=== PATIENT | female | born 1970 | race Caucasian/White ===

== ENCOUNTER 2016-06-29 11:31 | Emergency (ER) | payer BC ==
[2016-06-29 11:53] VITALS: BP 153/89
--- NOTE | 2016-06-29 12:05 | UC ---
Respiratory Complaint HPI - HPI Summary HPI Summary: complaint of getting a URI approx 1 month ago and has been lingering for approx 1 week she has been having difficulty with difficulty breathing out coughing uncontrolled coughing at night non productive cough slight nasal congestion feels chills for the last several days using albuterol 2x day for the last week seen by care aid and they started her on doxycycline 1 week ago- negative chest x-ray at that time seen by PCP 2 days ago started singular and told to finish antibiotics - History of Current Complaint Chief Complaint: UCAsthma Stated Complaint: ASTHMA Time Seen by Provider: 06/29/16 11:59 Hx Obtained From: Patient Hx Last Menstrual Period: 10/22/15 - Allergies/Home Medications Allergies/Adverse Reactions: Allergies Allergy/AdvReac Type Severity Reaction Status Date / Time Captopril Allergy Difficulty Verified 04/17/16 10:05 Breathing/Wheezing Codeine Allergy Swelling Verified 04/17/16 10:05 Enalapril Allergy Difficulty Verified 04/17/16 10:05 Breathing/Wheezing Erythromycin Allergy GI Upset Verified 04/17/16 10:05 Macrolides and Ketolides Allergy Difficulty Verified 04/17/16 10:05 Breathing/Wheezing Melatonin Allergy Swelling Verified 04/17/16 10:05 Pantoprazole [From Protonix] Allergy Rash Verified 04/17/16 10:05 Penicillins Allergy See Comment Verified 04/17/16 10:05 Sulfa Antibiotics Allergy Swelling Verified 04/17/16 10:05 Home Medications: Home Medications DOXYcycline CAP(*) [DOXYcycline 100MG CAP(*)] 100 mg PO BID 06/29/16 [History Confirmed 06/29/16] Montelukast Sodium TAB* [Singulair TAB*] 10 mg PO DAILY 06/29/16 [History Confirmed 06/29/16] cloNIDine 0.2 MG PATCH* [Oqnscred-Wej-8 0.2 mg Patch*] 0.2 mg TRANSDERM TU [History Confirmed 06/29/16] PMH/Surg Hx/FS Hx/Imm Hx Previously Healthy: No - URI, asthma Endocrine History Of: Denies: Diabetes Cardiovascular History Of: Reports: Hypertension Denies: Pacemaker/ICD Respiratory History Of: Reports: Asthma, Bronchitis GI/ History Of: Denies: Renal Disease - Surgical History Surgical History: Yes Surgery Procedure, Year, and Place: ORAL SURGERY - Family History Known Family History: Positive: None Negative: Cardiac Disease, Hypertension, Diabetes - Social History Occupation: Employed Full-time Lives: With Family Alcohol Use: None Substance Use Type: None Smoking Status (MU): Never Smoked Tobacco - Immunization History Most Recent Influenza Vaccination: Not the Season Review of Systems Constitutional: Chills Skin: Negative Eyes: Negative ENT: Nasal Discharge Respiratory: Shortness Of Breath, Cough Cardiovascular: Negative Gastrointestinal: Negative Genitourinary: Negative Motor: Negative Neurovascular: Negative Musculoskeletal: Negative Neurological: Negative Psychological: Negative All Other Systems Reviewed And Are Negative: Yes Physical Exam Triage Information Reviewed: Yes Appearance: No Pain Distress, Well-Nourished, Obese Vital Signs: Initial Vital Signs Temp 98.7 F 06/29/16 11:44 Pulse 88 06/29/16 11:44 Resp 18 06/29/16 11:44 BP 153/89 06/29/16 11:44 Pulse Ox 100 06/29/16 11:44 Vital Signs Reviewed: Yes Eyes: Positive: Conjunctiva Clear ENT: Positive: Pharynx normal, Nasal congestion, TMs normal Neck: Positive: No Lymphadenopathy Respiratory: Positive: Decreased breath sounds - throughout. Negative: Rhonchi , Stridor, Wheezing Cardiovascular: Positive: RRR, No Murmur, Pulses Normal Abdomen Description: Positive: Nontender, Soft Bowel Sounds: Positive: Present Musculoskeletal: Positive: No Edema Neurological: Positive: Alert Psychological Exam: Normal Skin Exam: Normal UC Diagnostic Evaluation - Laboratory O2 Sat by Pulse Oximetry: 100 Re-Evaluation - Re-Evaluation First Eval Re-Evaluation Time: 12:36 Change: Improved Comment: more air movement throughout Respiratory Course/Dx - Course Course Of Treatment: exam completed. already receiving antibiotic treatment for asthma exacerbation. will continue doxycycline and start prednisone with PCP followup - Differential Dx/Diagnosis Differential Diagnosis/HQI/PQRI: Asthma, Bronchitis, Lower Resp Infection Provider Diagnoses: asthma exacerbation Discharge - Discharge Plan Condition: Stable Disposition: HOME Prescriptions: predniSONE TAB* [Deltasone TAB*] 50 mg PO DAILY #5 tab Patient Education Materials: Asthma (ED) Referrals: Jhonatan OSPINA,Juarez [Primary Care Provider] - Additional Instructions: Please continue doxycycline as directed. Increase fluids and rest Take acetaminophen for fever or pain Please review your discharge instructions. If your symptoms do not improve please call your primary care provider or return to urgent care.
[2016-06-29] MEDS ORDERED: Albuterol/Ipratropium NEB.SOL* Albuterol 2.5 MG/Ipratropium 0.5 MG 3 ML INH ONE (12:08)
== END 2016-06-29 12:41 | disposition home or self-care (01) ==
LOC: UCCORT 11:31
DX: J45.901 Unspecified asthma with (acute) exacerbation (principal); Z88.5 Allergy status to narcotic agent; Z88.1 Allergy status to other antibiotic agents; Z88.0 Allergy status to penicillin; Z88.2 Allergy status to sulfonamides; Z88.8 Allergy status to other drugs, medicaments and biological substances
CPT/HCPCS: 99212; A9270-GY; G0463

== ENCOUNTER 2016-08-09 19:26 | Emergency (ER) | payer BC ==
[2016-08-09 19:44] VITALS: BP 138/79
--- NOTE | 2016-08-09 20:25 | UC ---
Abdominal Pain Female HPI - HPI Summary HPI Summary: The patient comes in today for: 1. Right flank pain radiating around to the front. Onset: 6 hours Palliative/provocative: Nothing makes it better or worse. Quality: Ache Region: Right flank and radiates around to the front. Severity: 10/10 Time: Constant. Associated symptoms: Fever: None taken at home. Blood in urine: None. Previous renal disease: None. Previous symptoms: NOne. She has not been able to give us a urine yet. * - History of Current Complaint Chief Complaint: UCAbdominalPain Stated Complaint: RLQ ABDOMINAL PAIN Time Seen by Provider: 08/09/16 20:16 Hx Obtained From: Patient Hx Last Menstrual Period: 07/31/16 ?: No Allergies/Adverse Reactions: Allergies Allergy/AdvReac Type Severity Reaction Status Date / Time Captopril Allergy Difficulty Verified 08/09/16 19:44 Breathing/Wheezing Codeine Allergy Swelling Verified 08/09/16 19:44 Enalapril Allergy Difficulty Verified 08/09/16 19:44 Breathing/Wheezing Erythromycin Allergy GI Upset Verified 08/09/16 19:44 Macrolides and Ketolides Allergy Difficulty Verified 08/09/16 19:44 Breathing/Wheezing Melatonin Allergy Swelling Verified 08/09/16 19:44 Pantoprazole [From Protonix] Allergy Rash Verified 08/09/16 19:44 Penicillins Allergy See Comment Verified 08/09/16 19:44 Sulfa Antibiotics Allergy Swelling Verified 08/09/16 19:44 Home Medications: Home Medications Chlorthalidone TAB* [Hygroton TAB*] 50 mg PO DAILY 08/09/16 [History Confirmed 08/09/16] Diltiazem CD CAP* [Cardizem CD CAP*] 240 mg PO DAILY 08/09/16 [History Confirmed 08/09/16] PMH/Surg Hx/FS Hx/Imm Hx Previously Healthy: No Endocrine History Of: Denies: Diabetes, Thyroid Disease, Hyperthyroidism, Hypothyroidism, Dyslipidemia Cardiovascular History Of: Reports: Hypertension Denies: Cardiac Disorders, Pacemaker/ICD, Myocardial Infarction, Congestive Heart Failure, Atrial Fibrillation, Deep Vein Thrombosis, Bleeding Disorders Respiratory History Of: Reports: Asthma Denies: COPD, Bronchitis, Pneumonia, Pulmonary Embolism GI/ History Of: Reports: Gastroesophageal Reflux Denies: Ulcer, Gastrointestinal Bleed, Gall Bladder Disease, Kidney Stones, Diverticulitis, Renal Disease, Urosepsis Neurological History Of: Denies: TIA, CVA, Dementia, Seizures, Migraine Psychological History Of: Denies: Anxiety, Depression, Bipolar Disorder, Schizophrenia, Post Traumatic Stress Disorder Cancer History Of: Denies: Lung Cancer, Colorectal Cancer, Breast Cancer, Prostate Cancer, Cervical Cancer Other History Of: Negative For: HIV, Hepatitis B, Hepatitis C, Anticoagulant Therapy - Surgical History Surgical History: Yes Surgery Procedure, Year, and Place: ORAL SURGERY - Family History Known Family History: Positive: Cardiac Disease, Hypertension Negative: Diabetes - Social History Occupation: Employed Full-time Alcohol Use: None Substance Use Type: None Smoking Status (MU): Never Smoked Tobacco - Immunization History Most Recent Influenza Vaccination: Not the Season Most Recent Tetanus Shot: UNKNOWN Review of Systems Constitutional: Negative Skin: Negative Eyes: Negative ENT: Negative Respiratory: Negative Cardiovascular: Negative Gastrointestinal: Abdominal Pain Genitourinary: Negative All Other Systems Reviewed And Are Negative: Yes Physical Exam Triage Information Reviewed: Yes Appearance: Well-Appearing, Pain Distress - She moves like she can't find a comfortable position. Vital Signs: Initial Vital Signs Temp 97.8 F 08/09/16 19:40 Pulse 82 08/09/16 19:40 Resp 16 08/09/16 19:40 BP 138/79 08/09/16 19:40 Pulse Ox 99 08/09/16 19:40 Vital Signs Reviewed: Yes Eyes: Positive: Conjunctiva Clear. Negative: Discharge ENT: Positive: Hearing grossly normal. Negative: Pharyngeal erythema, Nasal congestion, Nasal drainage, TM bulging, TM dull, TM red, Tonsillar swelling, Tonsillar exudate Dental: Negative: Gross Decay/Caries @, Dental Fracture @ Neck: Positive: Supple, Nontender, No Lymphadenopathy. Negative: Nuchal Rigidity Respiratory: Positive: Chest non-tender, Lungs clear, No respiratory distress, No accessory muscle use. Negative: Rhonchi, Wheezing Cardiovascular: Positive: RRR, No Murmur Abdomen Description: Positive: Nontender, No Organomegaly, Soft, Other:. Negative: CVA Tenderness (R), CVA Tenderness (L), Distended, Guarding Musculoskeletal: Positive: Strength Intact, Other: - She has tenderness to palpation of the musculature below the right CVA with at the ilium crest/sacrum. Psychological: Positive: Age Appropriate Behavior, Consolable Skin: Negative: rashes, breakdown Diagnostics - Laboratory Diagnostic Studies Completed/Ordered: She was not able to give us a urine for analysis. Abd Pain Female Course/Dx - Differential Dx/Diagnosis Provider Diagnoses: Lower back pain--suspected right renal stone. - Physician Notification/Consults Discussed Patient Care With: Galdino MURPHY at [facility]. at 8:40 PM Discharge - Discharge Plan Condition: Stable Disposition: AGAINST MEDICAL ADVICE Additional Instructions: Patient drove herself to [facility].
== END 2016-08-09 20:55 | disposition left against medical advice (07) ==
LOC: UCCORT 19:26
DX: M54.5 Low back pain (principal); I10 Essential (primary) hypertension; Z88.1 Allergy status to other antibiotic agents; Z88.5 Allergy status to narcotic agent; Z88.0 Allergy status to penicillin; Z88.2 Allergy status to sulfonamides; Z88.8 Allergy status to other drugs, medicaments and biological substances
CPT/HCPCS: 99212; G0463

== ENCOUNTER 2018-07-16 18:09 | Emergency (ER) | payer BC ==
--- OUTSIDE RECORDS SUMMARY | 2018-07-16 18:23 | XMS REPORT | Continuity of Care Document ---
:1970 External Reference #:[id number] Author Name Leatha Duarte Care Team Providers Name Role Phone Yimi Castrejon PA Primary Care Physician Unavailable Payers Type Date Identification Numbers Payment Provider Subscriber Effective: Policy Number: [id number] James Szymanski 2014 Group Name: [id number] [address] [address] PayID: [id number] [place] [address] Advance Directives Description No Information Available Problems Date Description Provider Status Onset: 01/22/2009 Low back pain Tremayne Mendez MD Active Onset: 01/22/2009 Sciatica Tremayne Mendez MD Active Onset: 01/22/2009 Plantar fascial fibromatosis Tremayne Mendez MD Active Onset: 01/22/2009 Asthma without status asthmaticus Tremayne Mendez MD Active Onset: 01/22/2009 Insomnia Tremayne Mendez MD Active Onset: 06/16/2010 Cobalamin deficiency Cindy Mendez MD Active Onset: 04/23/2015 Essential hypertension Yimi Castrejon PA Active Family History Date Family Member(s) Problem(s) Comments Father due to Heart Attack () Father due to Hypertension () Mother Hypertension Mother Osteoporosis Mother Cataracts Number of Children None Number of Siblings Siblings: 3 First Brother Hypertension First Brother Asthma First Sister Alive And Well Second Sister Alive And Well Social History Type Date Description Comments Sex Unknown Marital Status Single Lives With Roommate 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 Hand Dominance Left-handed Advance Directive 02/06/2014 Negative For Health Care Form given Proxy Hobbies Computers Hobbies Sports Hobbies Music ETOH Use Rarely consumes alcohol Recreational Drug Use Denies Drug Use Tobacco Use Reviewed: 03/03/15 Patient has never smoked Smoking Status Reviewed: 07/05/18 Patient has never smoked Exercise Type/Frequency Does not exercise Seat Belt/Car Seat always uses seat belt Allergies, Adverse Reactions, Alerts Date Description Reaction Status Severity Comments 03/05/2008 Amoxicillin Active 03/05/2008 Codeine Active 04/10/2008 Erythromycin Active 03/05/2008 Protonix Active 01/22/2009 Codeine Sulfate Active burning rash 04/12/2009 Macrolides Active 06/14/2009 Bactrim Active swelling 06/30/2009 Ketolides chest tight, sob Active 06/30/2009 Sulfa swelling Active 06/30/2009 Penicillin sob Active 07/20/2009 Enalapril Active cough 07/20/2009 Dillon Inhibitors Active cough 03/27/2011 Melatonin facial swelling Active 07/26/2011 Phentermine felt funny Active 09/07/2014 Esomeprazole Active Headache and Blurred vision Medications Medication Date Status Form Strength Qnty SIG Indications Ordering Provider Prednisone 07/05 Active Tablets 10mg 30tab 4 po qd J45.901 Justina s x3days, then Ifechukwu 3 po qd MD gagandeep x3days, then 2 po qd x3 days, then 1 po qd x 3days. Spacer Chamber 10/10 Active 1unit use with the J45.901 Jhonatan For Inhaler /2016 s Ventolin Dx Gilda j45.998 MD gagandeep Diltiazem HCL 07/25 Active Caps ER 240mg 90cap 1 by mouth I10 Jhonatan, ER 24HR s every day Gilda donis MD Albuterol 06/27 Active Nebulizer (2.5mg/3M 90ml inhale 3 J45.901 Jhonatan L) 0.083% milliliters Gilda via MD gagandeep nebulizer every 4 hours as needed for bronchospasm Nebulizer 07/16 Active Device 1unit Dx: j45.998 J45.901 Jhonatan, s Gilda donis MD Ventolin HFA 07/14 Active Aerosol 108(90Bas 1unit 2 puffs as J45.20 Ojuglissa e) s needed for Gilda carver/Act sob MD gagandeep Epipen 2-Yrn Active Solution 0.3mg/0.3 3unit use as Ojugbel Auto-Inject ML s directed Gilda donis MD Gabapentin Active Capsules 300mg take 3 Unknown capsule by mouth bid Naproxen Sodium Active Tablets 220mg as directed on bottle Doxycycline 06/20 Hx Tablets 100mg 14tab 1 by mouth J03.90 Osaul s twice a day Gilda donis MD 07/04 Buspirone HCL 12/06 Hx Tablets 10mg 60tab 1 by mouth Jhonatan, s twice a day Gilda donis MD 03/04 Alprazolam 11/13 Hx Tablets 0.25mg 30tab 1 by mouth Jhonatan s tid/prn Gilda donis MD 12/05 Prednisone 11/07 Hx Tablets 20mg 14tab 1 tab by Jhonatan s mouth twice Gilda - a kacie donis MD 12/05 Doxycycline 10/22 Hx Tablets 100mg 14tab 1 by mouth J22 Jhonatan s twice a day Gilda donis MD 10/31 Benzonatate 10/22 Hx Capsules 200mg 30cap take one J22 Jhonatan s three times Gilda - a kacie donis MD 11/09 Aspirin Enteric 05/[address] 81mg 30tab 1 by mouth I10 Jhonatan, Coated Adult s every day Gilda Low Strength Kei donis MD 06/04 Lansoprazole 05/[address] 30mg 30cap 1 by mouth K21.9 Jhonatan, s every day Gilda donis MD 10/08 Valsartan 05/08 Hx Tablets 160mg 30tab 1 by mouth I10 Jhonatan, s every day Gilda donis MD 06/11 [id number] 03/22 Hx Patches 0.1mg/24H 4unit 1 patch I10 Jhonatan Weekly R s weekly Gilda donis MD 05/03 Potassium 08/10 Hx Tablets ER 20Meq 31tab 1 every day Jhonatan, Chloride s Gilda donis MD 11/14 Chlorthalidone 07/25 Hx Tablets 50mg 30tab 1 by mouth I10 Jhonatan s every day Gilda donis MD 10/10 [id number] 07/25 Hx Patches 0.1mg/24H 4unit 1 patch I10 Jhonatan Weekly R s weekly Gilda donis MD 10/09 Budesonide 07/11 Hx Suspension 0.5mg/2ML 60ml 2ml [facility] J45.Kendall Mendez, bid/prn Gilda donis MD 07/11 Asmanex 07/11 Hx Aerosol 220mcg/In 1unit use 2 puffs J45.Reji Massey h s two times a Ifechukwu Metered Doses - day MD gagandeep 08/07 Pulmicort 07/10 Hx Aerosol 180mcg/Ac 1unit 1 puff twice J45.Gary Massey t s a day Gilda donis MD 07/10 Breo Ellipta 07/10 Hx Aerosol 200-25mcg 60uni 1 inhalation J45.Kendall Mendez, /Inh ts every day Gilda donis MD 07/10 Budesonide 07/04 Hx Suspension 0.5mg/2ML 60ml 2ml va neb J45.Kendall Mendez, bid/prn Gilda donis MD 07/10 Prednisone 07/04 Hx Tablets 10mg 21tab 2 tabs by Lenore Mendez, s mouth daily Gilda Choudhury for 1 week MD gagandeep 07/24 then 1 tab daily for 1 week Benzonatate 07/04 Hx Capsules 200mg 50cap take one J45.901 Jhonatan, s every 4 Andreasechukwu - hours as MD gagandeep 08/10 Montelukast 06/27 Hx Tablets 10mg 30tab 1 by mouth J45.901 Jhonatan, Sodium s every day Gilda donis MD 08/10 Chlorthalidone 06/27 Hx Tablets 25mg 90tab 1 by mouth I10 Jhonatan, s every day Gilda donis MD 07/25 [id number] 06/27 Hx Patches 0.2mg/24H 4unit Apply one I1 Jhonatan Weekly R s patch Gilda - qweekly MD gagandeep 07/25 Amlodipine 05/06 Hx Tablets 10mg 90tab 1 by mouth I10 Jhonatan, Besylate s every day Gilda donis MD 07/25 Doxycycline 04/23 Hx Tablets 100mg 20tab Take 1 J45.901 Zoey Hyclate s tablet by Catie, - mouth 2 05/06 times per day for 10 days for infection Diflucan 04/23 Hx Tablets 150mg 1tabs one tablet J45.901 Zoey once by , Catie, - mouth x 1 05/06 Tussionex 08/10 Hx Liquid ER 10-8mg/5M 150ml take 5 786.2 Zoey Pennkinetic L milliliters , Catie, Extended - by mouth MD Release 10/09 every hours as needed for cough Tussionex 07/14 Hx Liquid ER 10-8mg/5M 473ml Take 5 ml by 786.2 Zoey Pennkinetic L mouth every , Catie, Extended - 12 hours as MD Release 08/09 needed for cough Portable 07/14 Hx 1unit 493.90 Zoey Nebulizer s Catie, Battery - 05/06 Benzonatate 04/14 Hx Capsules 200mg 100ca 1 by mouth 786.2 Jhonatan, ps qid/prn Gilda donis MD 07/13 Clotrimazole/Be 04/14 Hx Cream 1-0.05% 60gm apply every 110.5 Ojugbeli, tamethasone day Gilda Dipropionate Kei donis MD 06/16 Cipro 03/14 Hx Tablets 500mg 14tab 1 po bid 462 Ojugbeli, s Gilda donis MD 04/13 Irbesartan 02/06 Hx Tablets 75mg 30tab 1 po qd 401.1 Ojugbeli, s Gilda donis MD 06/16 Cipro 07/14 Hx Tablets 250mg 14tab one tab po 466.0 Escoto s bid for 7 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 08/21/2011 Flonase 08/08/2011 Hx Suspension 50mcg/Act 1units one spray per 461.0 Schaus,Cat - nare bid herine, RES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 11/22/2011 Metoprolol 08/08/2011 Hx Tablets 25mg 90tabs one po qd 785.0 Schaus,Cat Tartrate - herine, RES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 08/21/2011 Diflucan 08/08/2011 Hx Tablets 150mg 2tabs 1 po qd Ojugbeledison, - MD Cindy 11/22/2011 Melatonin 02/28/2011 Hx Tablets Sub 5mg 60tabs 2 tabs po qhs 780.52 Ojugobed, - MD Cindy 04/03/2011 Vitamin B-12 10/28/2010 Hx Tablets Sub 2500mcg 60tabs 1 po bid 281.1 Robynjugobed, - MD Cindy 08/07/2011 Symbicort 10/28/2010 Hx Aerosol 160-4.5mcg 1units inhale 2 puffs 493.90 Ojugbeledison, - /Act by mouth 2 MD Cindy 04/03/2011 times a day Ibuprofen 09/14/2010 Hx Tablets 800mg 90tabs 1 po tid with 729.2 Robynjugbeledison, - food MD Cindy 02/17/2013 Benadryl 09/14/2010 Hx Tablets 25mg 60tabs 1 to 2 po qhs 780.52 Robynjugobed, - MD Cindy 07/18/2012 Clophed 06/16/2010 Hx cough Ojugobed, - suppressant MD Cindy 04/03/2011 10cc q every 6 hours as needed for cough Dexilant 06/16/[address] 60mg 90caps 1 po qd 530.81 Robynjugbeledison, - MD Cindy 11/29/2011 Pulmicort 05/19/2010 Hx Aerosol 90mcg/Act Jhonatan, Flexhaler - MD Cindy 04/03/2011 Vitamins For 05/19/2010 Hx Tablets one po qd 704.9 Ojugbeli, Hair - MD Cindy 08/07/2011 Fluconazole 04/21/2010 Hx Tablets 150mg 4tabs Take 1 tablet E930.9 Ojugbeli, - by mouth daily MD Cindy 04/14/2010 Fluconazole 04/21/2010 Hx Tablets 150mg 4tabs one po prn E930.9 Jhonatan, - MD Cindy 04/14/2010 Diclofenac 11/09/[address] 50mg 30tabs 1 tab po 2 or 724.2 Ojugbeli, Sodium - 3 times daily MD Cindy 08/07/2011 Ibuprofen 09/13/2009 Hx Tablets 800mg 90tabs 1 po tid prn Jhonatan, - MD Cindy 09/14/2010 Omron Micro 05/24/2009 Hx #[id number] 1units Use q4h prn Ritu Air Vibrating - MD Maggie Mesh 04/03/2011 Nebulizer Nystatin 05/14/2009 Hx Cream [id number] 60g apply Kei Chaney /GM liberally to MD Maggie 07/20/2009 affected area qd-bid prn Avelox 05/07/2009 Hx Tablets 400mg 10tabs 1 tab po daily 462 Ojugbeli, - x 10 days MD Cindy 06/14/2009 Diflucan 05/07/2009 Hx Tablets 150mg 2tabs 1 po qd Osaul, - MD Cindy 05/07/2009 Prednisone 04/23/2009 Hx Tablets 20mg 20tabs 1 po tid x 3d, 493.90 Ritu, - then 1 bid x MD Maggie 05/06/2009 3d, then 1 qd x 3d, then 1/2 qd x 4d Prednisone 04/22/2009 Hx Tablets 10mg 59tabs take as 493.90 Jhonatan, - directed MD Cindy 04/23/2009 Levaquin 04/19/2009 Hx Tablets 500mg 10tabs 1 po qd x 10 461.8 Ritu, - mustapha Muller MD 05/06/2009 Prednisone 04/19/2009 Hx Tablets 20mg 21tabs 1 po tonight, 493.90 Ritu , - then 1 tid x MD Maggie 04/23/2009 3d, then 1 bid x 3d, then 1 qd x 3d, then 1/2 qd until done Diflucan 04/19/2009 Hx Tablets 150mg 1tabs 1 po qd 461.8 Kei Chaney MD 05/07/2009 Ipratropium-A 04/12/2009 Hx Solution 0.5-2.5(3) 25units 1 qid prn 493.90 steff Chaneyuterol - Rip Muller MD 08/07/2011 Pulmicort 04/12/2009 Hx Suspension 0.5mg/2ML 1Box 1 by neb bid 493.90 Kei Chaney MD 08/07/2011 Prednisone 04/12/2009 Hx Tablets 20mg 5tabs 1 po qd x 5 d 692.89 Kei Chaney MD 04/19/2009 TENS Unit 03/16/2009 Hx 1units Use as Ritu, - directed by MD Maggie 06/14/2009 therapist. Dx: LBP and sciatica Voltaren 01/22/2009 Hx Gel 1% 5tubes apply to 729.4 Ojugbeli, - [facility] 04[facility]2009 swapnil mathew MD Voltaren 01/21/2009 Hx Gel 1% 1tube apply to Ojugbeli, - [facility] 04/12/2009 swapnil mathew MD Nabumetone 01/21/2009 Hx Tablets 750mg 60tabs 1 po bid Ojugbeli, - Ifechukwud 04/12/2009 MD quincy Nexium 12/16/2008 Hx CPDR 40mg 30units 1qd - take one 530.81 Ojugbeli, - capsule by MD Cindy 04/03/2011 mouth every day Singulair 09/14/2008 Hx Tablets 10mg 30tabs 1 po qd 786.09 Kei Chaney MD 01/21/2009 Vicodin 07/29/2008 Hx Tablets 5-500mg 30tabs 1-2 po qhs prn 724.2 Kei Chaney MD 08/18/2008 Prevident 07/28/2008 Hx Cream 1.1% 1Tube for sensitive Ojugbeli, 5000 Plus - teeth as MD Cindy 10/09/2014 directed Duoneb 05/15/2008 Hx Solution 25units 1 vial qid prn Kei Chaney MD 08/18/2008 Pulmicort 05/15/2008 Hx Suspension 0.5mg/2ML 1Box 1 by neb bid Kei Chaney MD 08/18/2008 Azithromycin 05/15/2008 Hx Tablets 250mg 6tabs 2 po day 1, Kei Chaney 1 po qd MD Maggie 07/28/2008 until done Tramadol HCL 05/04/2008 Hx Tablets 50mg 40tabs 1 po qid prn Kei Chaney MD 08/18/2008 Catapres-TTS- 04/08/2008 Hx Patches 0.3mg/24HR 12units apply 1 patch I10 Robynjugbeledison, 3 - Weekly transdermally echukwud 06/27/2016 weekly, remove MD quincy old patch Norvasc 03/05/2008 Hx Tablets 10mg 90tabs 1 po qd 401.1 Ojugbeledison, - Ifechukwud 02/04/2014 MD quincy Albuterol 02/04/2008 Hx Aerosol 90mcg/Act 2units 1 puff qid prn 493.90 Kei Chaney MD 07/21/2013 Omnaris Hx Suspension 50mcg/Act 12.500g one spray bid Unknown - m 04/03/2011 Oxycodone/Dillon Hx Tablets 5-325mg 120tabs 1-2 po q 6 prn 729.2 Jhonatan taminokiya White MD 04/03/2011 Levofloxacin Hx Tablets 750mg 7tabs 1 po qd Unknown - 07/25/[address] 40mg 1 tab by mouth 530.81 Unknown - every morning 04/23/2015 on empty stomach 553.3 Norvasc - Hx Tablets 10mg 90tabs 1 by mouth I10 Zoey, 05/06/2015 every day MD Catie Singulair - Hx Tablets 10mg 30tabs 1 by mouth Unknown 07/13/2014 every day Pulmicort - Hx Aerosol 180mcg/ 1units 1 puff twice Unknown Flexhaler 09/04/2014 Act a day Minocycline - Hx Capsules 75mg Unknown HCL 04/23/2015 Combivent - Hx Aerosol 20-100m one Unknown Respimat 12/01/2014 cg/Act inhalation four times a day Dulera - Hx Aerosol 100-5mc inhale two Unknown 04/23/2015 g/Act puffs by mouth twice a day Nexium - Hx Capsules DR 20mg 1 by mouth K21.9 Unknown 05/08/2017 every day K44.9 Doxycycline Hyclate - Hx Tablets DR 100mg 1 by mouth Unknown 06/06/2016 twice a day Amitriptyline HCL - Hx Tablets 10mg take 2 po bid Unknown 06/04/2017 Medications Administered in Office Medication Date Status Form Strength Qnty SIG Indications Ordering Provider Injection Vitamin 07/07 Administered Injection Ojugbeli, B MD Cindy Cyanocobalamin To 1000 mcg [id number] Injection Vitamin 06/30 Administered Injection Ojugbeli, B- MD Cindy Cyanocobalamin To 1000 mcg [id number] Injection Vitamin 06/22 Administered Injection Ojugbeli, B MD Cindy Cyanocobalamin To 1000 mcg [id number] Vitamin B-12 06/22 Administered Injection Penree DANETTE Carroll Injection Vitamin 06/16 Administered Injection Ojugbeli, B MD Cindy Cyanocobalamin To 1000 mcg [id number] Injection 11/09 Administered Injection Ojugbeli, Ketorolac /2009 MD Cindy Tromethamine Per 15 MG (Toradol)[id number] Injection 11/09 Administered Injection Penree, Ketorolac /2009 Glen Tromethamine Per PA 15 MG (Toradol)[id number] 9501 Inj. 04/19 Administered Injection Laphyllis, Methylprednisolone /2008 MD Maggie sodium Succinate 125 MG Im Inj. 04/19 Administered Injection Lalor, Methylprednisolone /2009 MD Maggie sodium Succinate 125 MG Im Immunizations CPT Code Status Date Vaccine Lot # [id number] Given 05/04/2011 Influenza Split 5yrs and above Afluria [id number] 04043 Given 03/30/2009 Influenza Split 5yrs and above Afluria 84461 Given 03/30/2009 Influenza Split 5yrs and above Afluria [id number] 10110 Given 06/10/2007 Pneumococcal Vaccine 23 valent 08840 Given 06/10/2007 Td&P (Adacel) 49346 Given 03/10/2005 Influenza Split 5yrs and above Afluria 55625 Given 05/03/2004 Influenza Split 5yrs and above Afluria Vital Signs Date Vital Result Comment 07/05/2018 4:28pm BP Systolic 158 mmHg BP Diastolic 92 mmHg Heart Rate 85 /min Body Temperature 97.5 F Respiratory Rate 18 /min O2 % BldC Oximetry 95 % room air 06/20/2018 1:09pm BP Systolic 122 mmHg BP Diastolic 86 mmHg Heart Rate 104 /min Body Temperature 98.2 F Weight 143.50 lb Weight 65.092 kg O2 % BldC Oximetry 93 % 05/01/2018 11:29am BP Systolic 136 mmHg BP Diastolic 80 mmHg Heart Rate 86 /min Respiratory Rate 18 /min O2 % BldC Oximetry 97 % room air 03/05/2018 8:35am BP Systolic 144 mmHg BP Diastolic 82 mmHg Heart Rate 73 /min Respiratory Rate 20 /min O2 % BldC Oximetry 97 % room air 12/06/2017 9:14am BP Systolic 166 mmHg BP Diastolic 90 mmHg Heart Rate 91 /min Body Temperature 98.7 F Respiratory Rate 18 /min Weight 245.00 lb Weight 111.132 kg Height 64.75 inches 5'4.75" refused Height in cm's 164.5 cm BMI (Body Mass Index) 41.1 kg/m2 O2 % BldC Oximetry 97 % room air 11/15/2017 10:42am BP Systolic 138 mmHg BP Diastolic 80 mmHg Heart Rate 84 /min Respiratory Rate 18 /min O2 % BldC Oximetry 97 % room air 11/13/2017 2:26pm BP Systolic 138 mmHg BP Diastolic 86 mmHg Heart Rate 69 /min Respiratory Rate 20 /min Height 64.75 inches 5'4.75" Height in cm's 164.5 cm O2 % BldC Oximetry 93 % room air 11/07/2017 3:35pm BP Systolic 148 mmHg BP Diastolic 80 mmHg Heart Rate 99 /min Body Temperature 98.5 F Respiratory Rate 20 /min Height 64.75 inches 5'4.75" Height in cm's 164.5 cm O2 % BldC Oximetry 98 % room air 11/01/2017 8:31am BP Systolic 146 mmHg BP Diastolic 84 mmHg Heart Rate 87 /min Respiratory Rate 18 /min Weight 244.00 lb Weight 110.678 kg Height 64.75 inches 5'4.75" Height in cm's 164.5 cm BMI (Body Mass Index) 40.9 kg/m2 O2 % BldC Oximetry 98 % room air 10/22/2017 11:19am BP Systolic 136 mmHg BP Diastolic 84 mmHg Heart Rate 84 /min Body Temperature 97.8 F Respiratory Rate 20 /min Weight 239.00 lb With Shoes Weight 108.410 kg Height 64.75 inches 5'4.75" Height in cm's 164.5 cm BMI (Body Mass Index) 40.1 kg/m2 O2 % BldC Oximetry 99 % room air 07/03/2017 8:37am BP Systolic 128 mmHg BP Diastolic 82 mmHg Heart Rate 99 /min Body Temperature 99.3 F Respiratory Rate 18 /min Weight 237.00 lb Weight 107.503 kg Height 64.75 inches 5'4.75" Height in cm's 164.5 cm BMI (Body Mass Index) 39.7 kg/m2 O2 % BldC Oximetry 99 % room air 05/17/2017 9:01am BP Systolic 138 mmHg BP Diastolic 86 mmHg Heart Rate 101 /min Respiratory Rate 18 /min Weight 237.00 lb Weight 107.503 kg Height 64.75 inches 5'4.75" Height in cm's 164.5 cm BMI (Body Mass Index) 39.7 kg/m2 O2 % BldC Oximetry 98 % room air 05/08/2017 2:59pm BP Systolic 172 mmHg BP Diastolic 104 mmHg Heart Rate 77 /min Respiratory Rate 18 /min Weight 237.00 lb Weight 107.503 kg Height 64.75 inches 5'4.75" Height in cm's 164.5 cm BMI (Body Mass Index) 39.7 kg/m2 O2 % BldC Oximetry 98 % room air 05/03/2017 10:12am BP Systolic 144 mmHg BP Diastolic 96 mmHg Heart Rate 92 /min Body Temperature 97.8 F Respiratory Rate 18 /min Weight 237.00 lb Weight 107.503 kg Height 64.75 inches 5'4.75" Height in cm's 164.5 cm BMI (Body Mass Index) 39.7 kg/m2 O2 % BldC Oximetry 95 % room air 03/22/2017 10:47am BP Systolic 136 mmHg BP Diastolic 84 mmHg Heart Rate 101 /min Body Temperature 97.1 F Respiratory Rate 18 /min Weight 235.00 lb Weight 106.596 kg Height 64.75 inches 5'4.75" Height in cm's 164.5 cm BMI (Body Mass Index) 39.4 kg/m2 O2 % BldC Oximetry 99 % roomair 11/14/2016 9:57am BP Systolic 130 mmHg BP Diastolic 70 mmHg Heart Rate 70 /min Body Temperature 97.9 F Respiratory Rate 16 /min Weight 223.00 lb Weight 101.153 kg Height 64.75 inches 5'4.75" Height in cm's 164.5 cm BMI (Body Mass Index) 37.4 kg/m2 O2 % BldC Oximetry 99 % at rest on room air 10/10/2016 10:03am BP Systolic 122 mmHg BP Diastolic 74 mmHg Heart Rate 99 /min Body Temperature 98.5 F Respiratory Rate 18 /min Weight 224.00 lb Weight 101.606 kg Height 64.75 inches 5'4.75" Height in cm's 164.5 cm BMI (Body Mass Index) 37.6 kg/m2 O2 % BldC Oximetry 96 % room air 08/22/2016 11:34am BP Systolic 142 mmHg BP Diastolic 86 mmHg Heart Rate 72 /min Respiratory Rate 20 /min Weight 227.00 lb Weight 102.967 kg Height 64.75 inches 5'4.75" Height in cm's 164.5 cm BMI (Body Mass Index) 38.1 kg/m2 O2 % BldC Oximetry 95 % room air 08/10/2016 1:34pm BP Systolic 146 mmHg BP Diastolic 98 mmHg Heart Rate 74 /min Body Temperature 98.0 F Respiratory Rate 16 /min Weight 232.00 lb Weight 105.235 kg Height 64.75 inches 5'4.75" Height in cm's 164.5 cm BMI (Body Mass Index) 38.9 kg/m2 O2 % BldC Oximetry 97 % at rest on room air 07/25/2016 11:30am BP Systolic 144 mmHg BP Diastolic 92 mmHg Heart Rate 110 /min Respiratory Rate 20 /min Weight 232.00 lb Weight 105.235 kg Height 64.75 inches 5'4.75" Height in cm's 164.5 cm BMI (Body Mass Index) 38.9 kg/m2 O2 % BldC Oximetry 95 % room air 07/11/2016 10:13am BP Systolic 158 mmHg BP Diastolic 101 mmHg Heart Rate 107 /min Body Temperature 98.6 F Respiratory Rate 20 /min Weight 232.00 lb With Shoes Weight 105.235 kg Height 64.75 inches 5'4.75" Height in cm's 164.5 cm BMI (Body Mass Index) 38.9 kg/m2 O2 % BldC Oximetry 99 % room air 07/04/2016 4:14pm BP Systolic 148 mmHg BP Diastolic 92 mmHg Heart Rate 101 /min Respiratory Rate 20 /min Weight 230.00 lb Weight 104.328 kg Height 64.75 inches 5'4.75" Height in cm's 164.5 cm BMI (Body Mass Index) 38.6 kg/m2 O2 % BldC Oximetry 97 % room air 06/27/2016 10:07am BP Systolic 136 mmHg BP Diastolic 92 mmHg Heart Rate 93 /min Body Temperature 98.7 F Respiratory Rate 18 /min Weight 230.00 lb Weight 104.328 kg Height 64.75 inches 5'4.75" Height in cm's 164.5 cm BMI (Body Mass Index) 38.6 kg/m2 O2 % BldC Oximetry 98 % rooma ir 08/05/2015 11:34am BP Systolic 136 mmHg Left arm BP Diastolic 96 mmHg Left arm Heart Rate 93 /min Body Temperature 97.2 F Respiratory Rate 17 /min Weight 245.00 lb Weight 111.132 kg Height 64.75 inches 5'4.75" Height in cm's 164.5 cm BMI (Body Mass Index) 41.1 kg/m2 O2 % BldC Oximetry 98 % Ra 05/06/2015 11:33am BP Systolic 118 mmHg left arm BP Diastolic 80 mmHg left arm Heart Rate 73 /min Body Temperature 97.2 F Respiratory Rate 18 /min Height 64.75 inches 5'4.75" Height in cm's 164.5 cm O2 % BldC Oximetry 99 % room air 04/23/2015 10:56am BP Systolic 132 mmHg right arm BP Diastolic 80 mmHg right arm Heart Rate 100 /min Body Temperature 97.8 F Respiratory Rate 18 /min Height 64.75 inches 5'4.75" Height in cm's 164.5 cm O2 % BldC Oximetry 96 % room air 12/01/2014 12:23pm BP Systolic 112 mmHg left arm BP Diastolic 70 mmHg left arm Heart Rate 82 /min Body Temperature 97.7 F Respiratory Rate 18 /min Weight 245.00 lb Weight 111.132 kg Height 64.75 inches 5'4.75" Height in cm's 164.5 cm BMI (Body Mass Index) 41.1 kg/m2 O2 % BldC Oximetry 98 % room air 10/12/2014 11:36am BP Systolic 126 mmHg BP Diastolic 86 mmHg Heart Rate 98 /min Body Temperature 99.2 F Respiratory Rate 20 /min Height 64.75 inches 5'4.75" Height in cm's 164.5 cm O2 % BldC Oximetry 98 % Room air 09/07/2014 11:50am BP Systolic 148 mmHg BP Diastolic 94 mmHg Heart Rate 106 /min Body Temperature 98.8 F Respiratory Rate 20 /min Height 64.75 inches 5'4.75" Height in cm's 164.5 cm O2 % BldC Oximetry 97 % Room air 08/17/2014 2:07pm BP Systolic 140 mmHg BP Diastolic 96 mmHg Heart Rate 95 /min Body Temperature 98.4 F Respiratory Rate 18 /min Height 64.75 inches 5'4.75" Height in cm's 164.5 cm O2 % BldC Oximetry 98 % Room air 08/10/2014 4:53pm BP Systolic 150 mmHg BP Diastolic 90 mmHg Heart Rate 98 /min Body Temperature 98.9 F Respiratory Rate 20 /min Weight 245.50 lb Weight 111.359 kg Height 64.75 inches 5'4.75" Height in cm's 164.5 cm BMI (Body Mass Index) 41.2 kg/m2 O2 % BldC Oximetry 98 % Room air 07/14/2014 3:59pm BP Systolic 140 mmHg BP Diastolic 110 mmHg Heart Rate 117 /min Body Temperature 99.0 F Respiratory Rate 18 /min Height 64.75 inches 5'4.75" Height in cm's 164.5 cm 06/16/2014 12:12pm BP Systolic 122 mmHg left arm BP Diastolic 88 mmHg left arm Heart Rate 91 /min Body Temperature 97.8 F Respiratory Rate 17 /min Height 64.75 inches 5'4.75" Height in cm's 164.5 cm O2 % BldC Oximetry 96 % room air 04/14/2014 12:42pm BP Systolic 128 mmHg BP Diastolic 80 mmHg Heart Rate 110 /min Respiratory Rate 18 /min Height 64.75 inches 5'4.75" Height in cm's 164.5 cm O2 % BldC Oximetry 96 % room air 03/14/2014 12:21pm BP Systolic 136 mmHg BP Diastolic 88 mmHg Heart Rate 109 /min Body Temperature 98.8 F Respiratory Rate 18 /min Weight 239.00 lb Weight 108.410 kg Height 64.75 inches 5'4.75" Height in cm's 164.5 cm BMI (Body Mass Index) 40.1 kg/m2 O2 % BldC Oximetry 97 % Room air 02/06/2014 3:03pm BP Systolic 142 mmHg BP Diastolic 88 mmHg Heart Rate 86 /min Body Temperature 98.3 F Respiratory Rate 18 /min Weight 234.00 lb Weight 106.142 kg Height 64.75 inches 5'4.75" Height in cm's 164.5 cm BMI (Body Mass Index) 39.2 kg/m2 07/21/2013 11:44am BP Systolic 128 mmHg BP Diastolic 82 mmHg Heart Rate 83 /min Body Temperature 98.6 F Respiratory Rate 22 /min Weight 234.00 lb Weight 106.142 kg Height 65 inches 5'5" Height in cm's 165.1 cm BMI (Body Mass Index) 38.9 kg/m2 O2 % BldC Oximetry 98 % Room air 07/14/2013 1:52pm BP Systolic 130 mmHg BP Diastolic 80 mmHg Heart Rate 90 /min Body Temperature 98.3 F Respiratory Rate 18 /min Weight 234.00 lb Weight 106.142 kg Height 65 inches 5'5" Height in cm's 165.1 cm BMI (Body Mass Index) 38.9 kg/m2 O2 % BldC Oximetry 98 % Room air 06/19/2013 11:02am BP Systolic 126 mmHg BP Diastolic 88 mmHg Heart Rate 91 /min Body Temperature 98.8 F Respiratory Rate 18 /min Weight 234.00 lb Weight 106.142 kg Height 65 inches 5'5" Height in cm's 165.1 cm BMI (Body Mass Index) 38.9 kg/m2 O2 % BldC Oximetry 98 % room air 02/18/2013 2:44pm BP Systolic 130 mmHg BP Diastolic 86 mmHg Heart Rate 95 /min Body Temperature 98.8 F Respiratory Rate 18 /min Weight 221.00 lb Weight 100.246 kg Height 65 inches 5'5" Height in cm's 165.1 cm BMI (Body Mass Index) 36.8 kg/m2 O2 % BldC Oximetry 98 % room air 10/17/2012 11:17am BP Systolic 132 mmHg BP Diastolic 78 mmHg Heart Rate 87 /min Body Temperature 98.6 F Respiratory Rate 18 /min Weight 232.00 lb Weight 105.235 kg Height 65 inches 5'5" Height in cm's 165.1 cm BMI (Body Mass Index) 38.6 kg/m2 O2 % BldC Oximetry 96 % Room air 07/18/2012 9:50am BP Systolic 124 mmHg BP Diastolic 88 mmHg Heart Rate 72 /min Body Temperature 98.0 F Respiratory Rate 16 /min Height 65 inches 5'5" Height in cm's 165.1 cm O2 % BldC Oximetry 99 % Room air 11/23/2011 11:05am BP Systolic 112 mmHg BP Diastolic 72 mmHg Heart Rate 82 /min Body Temperature 98.6 F Weight 231.00 lb Weight 104.782 kg Height 65 inches 5'5" Height in cm's 165.1 cm BMI (Body Mass Index) 38.4 kg/m2 O2 % BldC Oximetry 98 % 08/22/2011 4:45pm BP Systolic 138 mmHg BP Diastolic 96 mmHg Heart Rate 91 /min Body Temperature 97.8 F Respiratory Rate 18 /min Weight 211.00 lb prior weight Weight 95.710 kg Height 65.5 inches 5'5.50" Height in cm's 166.4 cm BMI (Body Mass Index) 34.6 kg/m2 O2 % BldC Oximetry 99 % room air 08/08/2011 1:51pm BP Systolic 132 mmHg BP Diastolic 86 mmHg Heart Rate 100 /min Body Temperature 98.2 F Respiratory Rate 17 /min O2 % BldC Oximetry 98 % Room air 07/26/2011 1:42pm BP Systolic 120 mmHg BP Diastolic 86 mmHg Heart Rate 82 /min Body Temperature 98.2 F Respiratory Rate 18 /min Weight 211.00 lb Weight 95.710 kg Height 65.5 inches 5'5.50" Height in cm's 166.4 cm BMI (Body Mass Index) 34.6 kg/m2 O2 % BldC Oximetry 98 % room air 05/04/2011 10:00am Weight 211.00 lb neck 14 Weight 95.710 kg arm 14.25 upper 10.5 lower 05/04/2011 1:47pm BP Systolic 128 mmHg BP Diastolic 86 mmHg Heart Rate 77 /min Body Temperature 98.7 F Respiratory Rate 18 /min Weight 211.00 lb Weight 95.710 kg Height 65.51 inches 5'5.51" Height in cm's 166.4 cm BMI (Body Mass Index) 34.6 kg/m2 O2 % BldC Oximetry 98 % room air 04/04/2011 10:35am BP Systolic 120 mmHg BP Diastolic 80 mmHg Heart Rate 76 /min Body Temperature 98.2 F Respiratory Rate 16 /min Weight 209.50 lb Weight 95.029 kg Height 65.51 inches 5'5.51" Height in cm's 166.4 cm BMI (Body Mass Index) 34.3 kg/m2 O2 % BldC Oximetry 98 % room air 02/28/2011 1:13pm BP Systolic 110 mmHg BP Diastolic 64 mmHg Heart Rate 82 /min Body Temperature 98.4 F Respiratory Rate 16 /min Weight 210.38 lb Weight 95.426 kg Height 65.51 inches 5'5.51" Height in cm's 166.4 cm BMI (Body Mass Index) 34.5 kg/m2 O2 % BldC Oximetry 98 % on room air 02/14/2011 10:29am Respiratory Rate 16 /min Weight 209.00 lb Weight 94.802 kg Height 65.51 inches 5'5.51" Height in cm's 166.4 cm BMI (Body Mass Index) 34.2 kg/m2 10/28/2010 3:21pm BP Systolic 132 mmHg BP Diastolic 76 mmHg Heart Rate 76 /min Body Temperature 98.2 F Respiratory Rate 14 /min Weight 248.00 lb Weight 112.493 kg Height 65.51 inches 5'5.51" Height in cm's 166.4 cm BMI (Body Mass Index) 40.6 kg/m2 O2 % BldC Oximetry 96 % on room air 09/14/2010 2:11pm BP Systolic 140 mmHg BP Diastolic 90 mmHg Heart Rate 96 /min Body Temperature 98.3 F Respiratory Rate 20 /min Weight 238.00 lb Weight 107.957 kg Height 65.51 inches 5'5.51" Height in cm's 166.4 cm BMI (Body Mass Index) 39.0 kg/m2 O2 % BldC Oximetry 96 % 08/11/2010 12:29pm BP Systolic 128 mmHg BP Diastolic 80 mmHg Heart Rate 88 /min Body Temperature 98.8 F Respiratory Rate 16 /min Height 65.51 inches 5'5.50" Height in cm's 166.4 cm O2 % BldC Oximetry 99 % on room air 06/30/2010 11:33am BP Systolic 124 mmHg BP Diastolic 70 mmHg Heart Rate 84 /min Body Temperature 98.5 F Respiratory Rate 16 /min Height 65.5 inches 5'5.50" Height in cm's 166.4 cm 06/16/2010 12:54pm BP Systolic 130 mmHg BP Diastolic 70 mmHg Heart Rate 80 /min Body Temperature 98.6 F Respiratory Rate 16 /min Weight 234.00 lb Weight 106.142 kg Height 65.5 inches 5'5.50" Height in cm's 166.4 cm BMI (Body Mass Index) 38.3 kg/m2 O2 % BldC Oximetry 98 % on room air 05/19/2010 11:26am BP Systolic 132 mmHg BP Diastolic 78 mmHg Heart Rate 86 /min Body Temperature 98.6 F Respiratory Rate 16 /min Weight 229.00 lb Weight 103.874 kg Height 65.5 inches 5'5.50" Height in cm's 166.4 cm BMI (Body Mass Index) 37.5 kg/m2 04/21/2010 9:40am BP Systolic 132 mmHg BP Diastolic 72 mmHg Heart Rate 88 /min Body Temperature 98.6 F Respiratory Rate 16 /min Weight 237.00 lb Weight 107.503 kg Height 65.5 inches 5'5.50" Height in cm's 166.4 cm BMI (Body Mass Index) 38.8 kg/m2 11/09/2009 4:38pm BP Systolic 140 mmHg BP Diastolic 90 mmHg Heart Rate 85 /min Body Temperature 98.0 F Respiratory Rate 18 /min O2 % BldC Oximetry 97 % room air 07/20/2009 5:52pm BP Systolic 138 mmHg BP Diastolic 88 mmHg Heart Rate 78 /min Body Temperature 98.9 F Respiratory Rate 24 /min Weight 242.00 lb Weight 109.771 kg Height 66.26 inches 5'6.25" Height in cm's 168.3 cm BMI (Body Mass Index) 38.7 kg/m2 O2 % BldC Oximetry 96 % room air 06/14/2009 6:01pm BP Systolic 162 mmHg BP Diastolic 92 mmHg Heart Rate 96 /min Body Temperature 98.4 F Respiratory Rate 24 /min Height 65.5 inches 5'5.50" Height in cm's 166.4 cm 05/24/2009 5:05pm BP Systolic 142 mmHg BP Diastolic 84 mmHg Heart Rate 110 /min Body Temperature 98.4 F Respiratory Rate 22 /min Height 65.5 inches 5'5.50" Height in cm's 166.4 cm O2 % BldC Oximetry 98 % room air 05/07/2009 2:21pm BP Systolic 150 mmHg BP Diastolic 84 mmHg Heart Rate 88 /min Body Temperature 98.7 F Respiratory Rate 18 /min Height 65.5 inches 5'5.50" Height in cm's 166.4 cm O2 % BldC Oximetry 98 % 04/22/2009 1:24pm BP Systolic 142 mmHg BP Diastolic 94 mmHg Heart Rate 93 /min Body Temperature 98.7 F Respiratory Rate 16 /min Height 65.5 inches 5'5.50" Height in cm's 166.4 cm O2 % BldC Oximetry 98 % r/a 04/19/2009 2:02pm BP Systolic 126 mmHg BP Diastolic 78 mmHg Heart Rate 88 /min Body Temperature 98.2 F Respiratory Rate 18 /min Height 65.5 inches 5'5.50" Height in cm's 166.4 cm 04/12/2009 3:02pm BP Systolic 128 mmHg BP Diastolic 88 mmHg Heart Rate 88 /min Body Temperature 98.3 F Respiratory Rate 22 /min Height 65.5 inches 5'5.50" Height in cm's 166.4 cm 01/22/2009 10:37am BP Systolic 142 mmHg BP Diastolic 88 mmHg Heart Rate 74 /min Body Temperature 99.0 F Respiratory Rate 18 /min Weight 229.00 lb Weight 103.874 kg Height 65.5 inches 5'5.50" Height in cm's 166.4 cm BMI (Body Mass Index) 37.5 kg/m2 09/14/2008 3:27pm BP Systolic 118 mmHg BP Diastolic 84 mmHg Heart Rate 68 /min Body Temperature 98.4 F Respiratory Rate 14 /min Weight 232.00 lb Weight 105.235 kg Height 65.35 inches 5'5.35" Height in cm's 166.0 cm BMI (Body Mass Index) 38.2 kg/m2 O2 % BldC Oximetry 95 % Room Air 08/19/2008 5:22pm BP Systolic 128 mmHg BP Diastolic 80 mmHg Heart Rate 86 /min Body Temperature 98.0 F Respiratory Rate 18 /min Height 66 inches 5'6" 07/29/2008 6:08pm BP Systolic 110 mmHg BP Diastolic 76 mmHg Heart Rate 80 /min Body Temperature 98.3 F Respiratory Rate 18 /min Height 66 inches 5'6" 06/10/2008 5:23pm BP Systolic 128 mmHg BP Diastolic 88 mmHg Heart Rate 88 /min Body Temperature 98.1 F Respiratory Rate 18 /min Weight 229.00 lb winter clothes Weight 103.874 kg Height 66 inches 5'6" Height in cm's 167.6 cm BMI (Body Mass Index) 37.0 kg/m2 05/15/2008 5:02pm BP Systolic 128 mmHg BP Diastolic 84 mmHg Heart Rate 76 /min Body Temperature 97.7 F Respiratory Rate 18 /min Weight 235.00 lb Weight 106.596 kg 05/04/2008 5:06pm BP Systolic 120 mmHg BP Diastolic 70 mmHg Heart Rate 84 /min Body Temperature 99.3 F Respiratory Rate 18 /min Results Test Date Facility Test Result H/L Range Note Laboratory test 11/13/2017 [facility] D-Dimer,Sensitive <0.19 mg/L (< 0.50) finding Laboratory test 11/13/2017 [facility] B-Type <pending> finding (315)- - Natriuretic D-Dimer Sensitive <pending> Xray 05/03/2017 [facility] - [place] [facility] of the 05/24 [phone] [facility] [address] Right Hand w/[place] [address] [phone] BMP W/Egfr 11/14/2016 [facility] Sodium 142 mmol/L (136-145 ) Potassium 4.4 mmol/L (3.6-5.2) Chloride 107 mmol/L (100-108) Co2 26 mmol/L (22-31) Anion Gap 9 mmol/L (7-16) Urea Nitrogen 13 mg/dL (7-24) Creatinine 0.68 mg/dL (0.60-1.00) BUN/Creat Ratio 19.1 RATIO (10.0-20.0) Glucose 75 mg/dL (70-99) Calcium 8.9 mg/dL (8.4-10.2) GFR >60 ml/min/1.73m2 (>59) GFR ( Amer) >60 ml/min/1.73m2 (>59) GFR Interpretation <SEE NOTE> 1 BMP W/Egfr 10/10/2016 [facility] Sodium 137 mmol/L (136-145) Potassium 3.5 mmol/L Low (3.6-5.2) Chloride 102 mmol/L (100-108) Co2 27 mmol/L (22-31) Anion Gap 8 mmol/L (7-16) Urea Nitrogen 14 mg/dL (7-24) Creatinine 0.77 mg/dL (0.60-1.00) BUN/Creat Ratio 18.2 RATIO (10.0-20.0) Glucose 89 mg/dL (70-99) Calcium 9.2 mg/dL (8.4-10.2) GFR >60 ml/min/1.73m2 (>59) GFR ( Amer) >60 ml/min/1.73m2 (>59) GFR Interpretation <SEE NOTE> 2 BMP W/Egfr 08/22/2016 [facility] Sodium 139 mmol/L (136-145) Potassium 3.3 mmol/L Low (3.6-5.2) Chloride 101 mmol/L (100-108) Co2 28 mmol/L (22-31) Anion Gap 10 mmol/L (7-16) Urea Nitrogen 16 mg/dL (7-24) Creatinine 0.79 mg/dL (0.60-1.00) BUN/Creat Ratio 20.3 RATIO High (10.0-20.0) Glucose 78 mg/dL (70-99) Calcium 8.8 mg/dL (8.4-10.2) GFR >60 ml/min/1.73m2 (>59) GFR ( Amer) >60 ml/min/1.73m2 (>59) GFR Interpretation <SEE NOTE> 3 BMP W/Egfr 08/10/2016 [facility] Sodium 140 mmol/L (136-145) Potassium 3.3 mmol/L Low (3.6-5.2) Chloride 103 mmol/L (100-108) Co2 30 mmol/L (22-31) Anion Gap 7 mmol/L (7-16) Urea Nitrogen 18 mg/dL (7-24) Creatinine 0.82 mg/dL (0.60-1.00) BUN/Creat Ratio 22.0 RATIO High (10.0-20.0) Glucose 88 mg/dL (70-99) Calcium 8.4 mg/dL (8.4-10.2) GFR >60 ml/min/1.73m2 (>59) GFR ( Amer) >60 ml/min/1.73m2 (>59) GFR Interpretation <SEE NOTE> 4 Laboratory 07/18/2016 [facility] TSH,Ultrasensitive @ 0.860 (0.360- 4.170) test finding mIU/L Lipid Panel 07/18/2016 [facility] Cholesterol @ 174 mg/dL (0-200) Triglyceride @ 150 mg/dL (30-200) 5 HDL Cholesterol @ 47 mg/dL (>40) 6 Chol/HDL Ratio 3.7 RATIO 7 LDL Chol (Calc) 97 mg/dL (<130) 8 CBC W/Auto Diff & PLT 07/18/2016 [facility] WBC 15.3 10*3/uL High (4.1- 11.0) RBC 5.06 10*6/uL (4.00-5.40) HGB 14.9 g/dL (12.0-16.0) HCT 45.2 % (36.0-47.0) MCV 89.5 fL (80.0-95.0) MCH 29.5 pg (27.0-32.0) MCHC 33.0 g/dL (32.0-36.0) RDW 13.8 % (10.5-14.5) PLT 407 10*3/uL (150-450) MPV 7.6 fL (7.1-10.7) Neut % 80.7 % High (35.0-75.0) Lymph % 13.2 % Low (16.0-52.0) [place] % 5.1 % (0.0-8.0) Eos % 0.5 % (0.0-5.0) Baso % 0.5 % (0.0-4.0) Neut # 12.4 10*3/uL High (1.8-7.7) Lymph # 2.0 10*3/uL (1.2-4.8) [place] # 0.8 10*3/uL (0.0-0.8) Eos # 0.1 10*3/uL (0.0-0.5) Baso # 0.1 10*3/uL (0.0-0.2) CMP W/Egfr 07/18/2016 [facility] Sodium 140 mmol/L (136-145) Potassium 3.7 mmol/L (3.6-5.2) Chloride 98 mmol/L Low (100-108) Co2 30 mmol/L (22-31) Anion Gap 12 mmol/L (7-16) Urea Nitrogen 14 mg/dL (7-24) Creatinine 0.72 mg/dL (0.60-1.00) BUN/Creat Ratio 19.4 RATIO (10.0-20.0) Glucose 108 mg/dL High (70-99) 9 Calcium 9.3 mg/dL (8.4-10.2) Total Protein 7.6 g/dL (6.4-8.2) Albumin 3.9 g/dL (3.5-4.6) Globulin 3.7 g/dL (2.7-4.3) Alb/Glob Ratio 1.1 RATIO Alkaline Phosphatase 88 U/L (45-117) Bilirubin,Total 0.3 mg/dL (0.0-1.0) Ast (Sgot) 12 U/L (11-39) Alt (SGPT) 21 U/L (12-78) GFR >60 ml/min/1.73m2 (>59) GFR ( Amer) >60 ml/min/1.73m2 (>59) GFR Interpretation <SEE NOTE> 10 Xray 07/11/2016 [facility] scan today 12:15pm [address] [place] [address], [address] [place] [address] [phone] Laboratory test 06/27/2016 [facility]ology LAB[facility] 11 finding Fluid ALLIA <SEE Specimen NOTE> Urine Culture SPECIMEN DESCRI> 12 Bilirubin Urine NEGATIVE (Neg) Urinalysis W/Micro 06/27/2016 [facility] Color MIKAEL Appearance TURBID Spec Grav Urine 1.035 High (1.003-1.030) PH Urine 5.5 (5.0-7.5) Leuk Esterase NEGATIVE (Neg) Nitrite Urine NEGATIVE (Neg) Protein Urine TRACE Abnormal (Neg) Glucose Urine NEGATIVE (Neg) Ketone Urine NEGATIVE (Neg) Urobilinogen 0.2 mg/dL (0-1.0) Blood/HGB Urine TRACE Abnormal (Neg) Urine WBC 0-2 [HPF] (0-5) Urine RBC NONE SEEN [HPF] (0-2) Epithelial Cells 1+ [HPF] Bacteria 1+ [HPF] Amorphous 4+ [HPF] Lipid Panel 03/03/2015 [facility] Cholesterol Total 142 mg/dL (315)- - High Density Lipoprotein 37 mg/dL LDL Low Density Lipoprotein 85 mg/dL Triglycerides 98 mg/dL CMP W/Egfr 03/03/2015 [facility] Glucose Serum 98 mg/dL (315)- - Laboratory test 08/18/2014 Glucose Serum 91 finding Xray 06/16/2014 [facility] printed for [phone] Xray 03/14/2014 [facility] [address]- ct of 03/27 @ 9+ [phone] chest w/o HPV Dna Hig/Low 10/28/2010 [facility] Low Risk NOT DETECTED Not Detected 13 Risk (Thinprep) [phone] High Risk NOT DETECTED Not Detected 14 Vitamin D, 25 10/06/2010 [facility] Vitamin D,25-Oh,Total 27 ng/mL Low 30-100 Hydroxy [phone] Vitamin D,25-Oh,D3 27 ng/mL Vitamin D,25-Oh,D2 <4 ng/mL 15 CBC W/ Diff & PLT 10/06/2010 [facility] WBC 8.5 thous/L 3.8-10.8 [phone] RBC 4.65 mill/L 3.80-5.10 Hemoglobin 13.9 g/dL 11.7-15.5 Hematocrit 42.3 % 35.0-45.0 MCV 91.2 FL 80.0-100.0 MCH 29.9 pg 27.0-33.0 MCHC 32.8 g/dL 32.0-36.0 RDW 14.6 % 11.0-15.0 Platelet Count 366 thous/L 140-400 Neutrophils,Absolute 5290 cells/L [phone] Lymphocytes,Absolute 2350 cells/L 850-3900 Monocytes,Absolute 620 cells/L 200-950 Eosinophils,Absolute 180 cells/L 15-500 Basophils,Absolute 30 cells/L 0-200 Total Neutrophils,% 62 % 38-80 Total Lymphocytes,% 28 % 15-49 Monocytes,% 7 % 0-13 Eosinophils,% 2 % 0-8 Basophils,% 0 % 0-2 Laboratory test finding 10/06/2010 [facility] T3,Free 3.4 pg/mL 2.3-4.2 [phone] Magnesium 2.0 mg/dL 1.5-2.5 Vitamin B12/Folate 10/06/2010 [facility] Vitamin B12,Serum 700 pg/mL 200- 1100 Panel Serum [phone] Folate,Serum 16.8 NG/ML 16 Laboratory test finding 10/06/2010 [facility] Vitamin A 49 g/dL 38-98 [phone] Zinc 97 g/dL 60-130 TSH & Free T4 10/06/2010 [facility] TSH,3RD 2.27 mIU/L 0.40-4.50 17 ([employer]) [phone] Generation T4,Free 1.2 ng/dL 0.8-1.8 Lipid Panel 04/14/2010 [facility] Cholesterol 165 mg/dL 125-200 18 [phone] HDL Cholesterol 42 mg/dL Low > Or=46 Triglycerides 149 mg/dL <150 Cholesterol/HDL Ratio 3.9 < Or=5.0 LDL Chol,Calculated 93 mg/dL <130 19 Laboratory test 04/14/2010 [facility] TSH Autoantibody NEGATIVE Negative finding [phone] Vitamin D, 25 04/14/2010 [facility] Vitamin 22 ng/mL Low 30-100 Hydroxy [phone] D,25-Oh,Total Vitamin D,25-Oh,D3 22 ng/mL Vitamin D,25-Oh,D2 <4 ng/mL 20 Comp Metabolic Panel 04/14/2010 [facility] Sodium 138 mmol/L 135-146 [phone] Potassium 4.3 mmol/L 3.5-5.3 Chloride 104 mmol/L 98-110 Carbon Dioxide 25 mmol/L 21-33 Calcium 9.5 mg/dL 8.6-10.2 Alkaline Phosphatase 82 U/L 33-115 Ast 13 U/L 10-30 Alt 19 U/L 6-40 Bilirubin,Total 0.3 mg/dL 0.2-1.2 Glucose 86 mg/dL 65-99 21 Urea Nitrogen 11 mg/dL 7-25 Creatinine 0.70 mg/dL 0.59-1.07 BUN/Creatinine Ratio 16.1 6-22 Protein,Total 7.4 g/dL 6.2-8.3 Albumin 4.3 g/dL 3.6-5.1 Globulin,Calculated 3.1 g/dL 2.2-3.9 A/G Ratio 1.4 1.0-2.1 Egfr Non-Afr. Polish >60 ML/MIN/1.73M2 > Or=60 Egfr >60 ML/MIN/1.73M2 > Or=60 CBC W/ Diff & PLT 04/14/2010 [facility] WBC 9.7 thous/L 3.8-10.8 [phone] RBC 4.85 mill/L 3.80-5.10 Hemoglobin 14.5 g/dL 11.7-15.5 Hematocrit 43.8 % 35.0-45.0 MCV 90.4 FL 80.0-100.0 MCH 29.9 pg 27.0-33.0 MCHC 33.1 g/dL 32.0-36.0 RDW 13.6 % 11.0-15.0 Platelet Count 376 thous/L 140-400 Platelet Sufficiency NORMAL Normal Neutrophils,Absolute 6540 cells/L [phone] Lymphocytes,Absolute 2280 cells/L 850-3900 Monocytes,Absolute 690 cells/L 200-950 Eosinophils,Absolute 160 cells/L 15-500 Basophils,Absolute 40 cells/L 0-200 Total Neutrophils,% 68 % 38-80 Total Lymphocytes,% 23 % 15-49 Monocytes,% 7 % 0-13 Eosinophils,% 2 % 0-8 Basophils,% 0 % 0-2 RBC Morphology NORMAL Laboratory test 06/30/2009 [facility] Ige,Serum 53 kU/L <115 finding [phone] CBC W/ Diff & PLT 06/30/2009 [facility] WBC 9.9 thous/L 3.8-10.8 [phone] RBC 4.60 mill/L 3.80-5.10 Hemoglobin 13.9 g/dL 11.7-15.5 Hematocrit 41.8 % 35.0-45.0 MCV 90.8 FL 80.0-100.0 MCH 30.3 pg 27.0-33.0 MCHC 33.3 g/dL 32.0-36.0 RDW 13.4 % 11.0-15.0 Platelet Count 381 thous/L 140-400 Platelet Sufficiency NORMAL Normal Neutrophils,Absolute 6560 cells/L [phone] Lymphocytes,Absolute 2550 cells/L 850-3900 Monocytes,Absolute 670 cells/L 200-950 Eosinophils,Absolute 100 cells/L 15-500 Basophils,Absolute 40 cells/L 0-200 Total Neutrophils,% 66 % 38-80 Total Lymphocytes,% 26 % 15-49 Monocytes,% 7 % 0-13 Eosinophils,% 1 % 0-8 Basophils,% 0 % 0-2 RBC Morphology NORMAL Alpha-1 06/30/2009 [facility] [id number] 152 83-199 Antitrypsin,QN/Mut,[place] [phone] mg/dL Alpha-1 Antitrypsin Mutat SEE BELOW 22 Clinical Indication 786.2/493.90 Referring Physician MAGGIE CHANEY Laboratory test 06/30/2009 [facility] Fiudo-[id number]-Qtvdqnnogie 149 mg/dL 83-199 finding [phone] Culture,Throat 05/07/2009 [facility] 23 [phone] -THRO <SEE NOTE> Final Report (SEE NOTE) 24 Tissue Pathology 05/07/2009 [facility] Results (SEE NOTE) 25 [phone] CBC W/ Diff & PLT 04/14/2009 [facility] WBC 9.9 thous/L 3.8-10.8 [phone] RBC 4.70 mill/L 3.80-5.10 Hemoglobin 14.6 g/dL 11.7-15.5 Hematocrit 43.1 % 35.0-45.0 MCV 91.6 FL 80.0-100.0 MCH 31.1 pg 27.0-33.0 MCHC 34.0 g/dL 32.0-36.0 RDW 13.4 % 11.0-15.0 Platelet Count 400 thous/L 140-400 Platelet Sufficiency NORMAL Normal Neutrophils,Absolute 8310 cells/L High 1375-2470 Lymphocytes,Absolute 1340 cells/L 850-3900 Monocytes,Absolute 260 cells/L 200-950 Eosinophils,Absolute 0 cells/L Low 15-500 Basophils,Absolute 20 cells/L 0-200 Total Neutrophils,% 84 % 38-80 Total Lymphocytes,% 13 % 15-49 Monocytes,% 3 % 0-13 Eosinophils,% 0 % 0-8 Basophils,% 0 % 0-2 RBC Morphology NORMAL CMP W/GFR 04/14/2009 [facility] Sodium 140 mmol/L 135-146 [phone] Potassium 4.3 mmol/L 3.5-5.3 Chloride 104 mmol/L 98-110 Carbon Dioxide 24 mmol/L 21-33 Calcium 9.3 mg/dL 8.6-10.2 Alkaline Phosphatase 88 U/L 33-115 Ast 11 U/L 10-30 Alt 14 U/L 6-40 Bilirubin,Total 0.4 mg/dL 0.2-1.2 Glucose 115 mg/dL High 65-99 26 Urea Nitrogen 12 mg/dL 7-25 Creatinine 0.69 mg/dL 0.59-1.07 BUN/Creatinine Ratio 17.5 6-22 Protein,Total 7.7 g/dL 6.2-8.3 Albumin 4.4 g/dL 3.6-5.1 Globulin,Calculated 3.3 g/dL 2.2-3.9 A/G Ratio 1.3 1.0-2.1 Egfr Non-Afr. Polish >60 ML/MIN/1.73M2 > Or=60 Egfr >60 ML/MIN/1.73M2 > Or=60 Laboratory test 04/14/2009 [facility] Hemoglobin A1c 5.6 % <6.0 finding [phone] Lipid Panel 04/14/2009 [facility] Cholesterol 156 mg/dL 125-200 [phone] HDL Cholesterol 49 mg/dL > Or=46 Triglycerides 81 mg/dL <150 Cholesterol/HDL Ratio 3.2 < Or=5.0 LDL Chol,Calculated 91 mg/dL <130 27 TSH & T4,Free 04/14/2009 [facility] TSH,3RD Generation 0.51 mU/L 0.40-4.50 28 [phone] T4,Free 1.2 ng/dL 0.8-1.8 Vitamin D, 25 04/14/2009 [facility] Vitamin D,25-Oh,Total 22 ng/mL 20-100 Hydroxy [phone] Vitamin D,25-Oh,D3 22 ng/mL Vitamin D,25-Oh,D2 <4 ng/mL 29 1 NORMAL KIDNEY FUNCTION OR MILD DISEASE - GFR >OR=60 CHRONIC KIDNEY DISEASE - GFR 15 - 59 RENAL FAILURE - GFR <15 Est. GFR calculation based on the MDRD study equation, which assumes a steady state for creatinine. Est. GFR should not be used for medication dosing. 2 NORMAL KIDNEY FUNCTION OR MILD DISEASE - GFR >OR=60 CHRONIC KIDNEY DISEASE - GFR 15 - 59 RENAL FAILURE - GFR <15 Est. GFR calculation based on the MDRD study equation, which assumes a steady state for creatinine. Est. GFR should not be used for medication dosing. 3 NORMAL KIDNEY FUNCTION OR MILD DISEASE - GFR >OR=60 CHRONIC KIDNEY DISEASE - GFR 15 - 59 RENAL FAILURE - GFR <15 Est. GFR calculation based on the MDRD study equation, which assumes a steady state for creatinine. Est. GFR should not be used for medication dosing. 4 NORMAL KIDNEY FUNCTION OR MILD DISEASE - GFR >OR=60 CHRONIC KIDNEY DISEASE - GFR 15 - 59 RENAL FAILURE - GFR <15 Est. GFR calculation based on the MDRD study equation, which assumes a steady state for creatinine. Est. GFR should not be used for medication dosing. 5 FASTING 6 PER NCEP ATP III GUIDELINES: RESULTS LOWER THAN 40 MG/DL ARE SUGGESTIVE OF INCREASED RISK FOR CORONARY ARTERY DISEASE. RESULTS > OR=TO 60 MG/DL ARE CONSIDERED A NEGATIVE RISK FACTOR. 7 INTERPRETATION OF CHOL-HDL RATIO CHD RISK FEMALE MALE VERY HIGH >8.3 >14.3 HIGH 5.6- 8.3 6.7- 14.3 AVERAGE 3.7- 5.6 4.0- 6.7 BELOW AVERAGE 2.5- 3.7 2.7- 4.0 PROTECTED <2.5 <2.7 8 PER NCEP ATP III GUIDELINES: OPTIMAL < 100 NEAR OPTIMAL 100 - 129 BORDERLINE HIGH 130 - 159 HIGH 160 - 189 VERY HIGH > 189 9 FASTING 10 NORMAL KIDNEY FUNCTION OR MILD DISEASE - GFR >OR=60 CHRONIC KIDNEY DISEASE - GFR 15 - 59 RENAL FAILURE - GFR <15 Est. GFR calculation based on the MDRD study equation, which assumes a steady state for creatinine. Est. GFR should not be used for medication dosing. 11 [facility]. [address] [place] [address] MISCELLANEOUS CYTOLOGY REPORT Patient Name:KELLI SZYMANSKI Patient :1970 Ordering Physician:TREMAYNE MENDEZ MD Accession Number: [id number] Source of Specimen(s): A: Urine, Voided Clinical Diagnosis and History: R31.9 Gross Description: Urine, Voided: 30 cc turbid orange fluid. Final Diagnosis: Specimen Adequacy Satisfactory Final Diagnosis NEGATIVE FOR MALIGNANCY Scattered squamous cells and urothelial cells with a few erythrocytes. As applicable, positive and negative controls for all immunohistochemical and/or special stains were reviewed and considered appropriate. Reported: 06/29/2016 Electronically Signed Out By Pavan Underwood MD [facility] Director Systems: Nidhi AGUIAR([facility] [place]) [facility] [place] 12 SPECIMEN DESCRIPTION URINE, COLLECTION METHOD NOT SPECIFIED CULTURE RESULTS NO GROWTH REPORT STATUS FINAL 06/29/2016 13 Tested for Low Risk HPV Types 6,11,42,43,44. The analytical performance characteristics of this assay, when used to test Surepath(R) or vaginal specimens, have been determined by [facility]. Methodology: Hybrid Capture with Signal Amplification. Performed at [facility] [address] [place] [address] 14 Tested for High Risk HPV Types 16,18,31,33,35,39,45,51,52, 56,58,59,68. The analytical performance characteristics of this assay, when used to test Surepath(R) or vaginal specimens, have been determined by [facility]. Methodology: Hybrid Capture with Signal Amplification. Performed at [facility] [address] [place] [address] 15 25-OHD3 indicates both endogenous production and supplementation. 25-OHD2 is an indicator of exogenous sources such as diet or supplementation. Therapy is based on measurement of Total 25-OHD, with levels <20 ng/mL indicative of Vitamin D deficiency while levels between 20 ng/mL and 30 ng/mL suggest insufficiency. Optimal levels are > or=30ng/mL. 16 NORMAL >5.4 NG/ML BORDERLINE 3.4-5.4 NG/ML LOW <3.4 NG/ML 17 REFERENCE RANGES BELOW ARE APPLICABLE TO FEMALES FIRST TRIMESTER - 0.20 - 4.70 mIU/L SECOND TRIMESTER - 0.30 - 4.10 mIU/L THIRD TRIMESTER - 0.40 - 2.70 mIU/L 18 FASTING 19 LDL-CHOLESTEROL RISK CATEGORY* GOAL VERY HIGH (E.G. DIABETES + CVD) <70 MG/DL HIGH (DIABETICS; CHD RISK EQUIVALENTS) <100 MG/DL MODERATELY HIGH (MULTIPLE(2+) RISK FACTORS) <130 MG/DL 0 TO 1 RISK FACTORS <160 MG/DL * NCEP REPORT. CIRCULATION 2004; 110: 227-239 20 25-OHD3 indicates both endogenous production and supplementation. 25-OHD2 is an indicator of exogenous sources such as diet or supplementation. Therapy is based on measurement of Total 25-OHD, with levels <20 ng/mL indicative of Vitamin D deficiency while levels between 20 ng/mL and 30 ng/mL suggest insufficiency. Optimal levels are > or=30ng/mL. 21 GLUCOSE REFERENCE RANGE BASED ON FASTING SPECIMEN. 22 RESULT: NO MUTATION DETECTED Interpretation: DNA testing indicates that this individual is negative for the PI*Z and PI*S alleles in the srgaf-4-hcinqzcybbz (PI) gene (genotype PI*M/PI*M). This negative result does not rule out the presence of other mutations within the PI gene or other causes of vgswe-9-bnuvfdczhom deficiency. Therefore, these results should be interpreted in the context of the individual's clinical presentation, and other laboratory tests such as measurement of serum fcjwi-1-vygnnccacbl levels. Laboratory results and submitted clinical information reviewed by Merry Ng, Ph.D., [facility] [place], [facility] Lzlev-6-jbyckhqjawf deficiency is a relatively common autosomal recessive condition. The two most common deficiency alleles in the wqkar-6-enzkdxqlbul gene (protease inhibitor locus, PI) are designated PI*Z and PI*S, and the normal allele is designated PI*M. The PI*Z/PI*Z, PI*S/PI*Z, and PI*S/PI*S genotypes associated with decreased serum PI levels that are equivalent to approximately 10-20%, 35-40%, and 50-60% of normal, respectively. The PI*Z/PI*Z and PI*S/PI*Z genotypes are reported to be associated with an increased risk of liver disease in childhood, and chronic obstructive pulmonary disease (COPD) and emphysema in adult life. The PI*M/PI*Z, and PI*M/PI*S genotypes are also associated with decreased serum PI levels but these levels, and the PI levels associated with the PI*S/PI*S genotype, are apparently adequate to protect the lungs in the vast majority of individuals. Individuals with the PI*M/PI*Z genotype may have decreased pulmonary function, and may be at increased risk for COPD, especially if they smoke. It should be noted that serum eozuo-9-gejeyxjrtty levels can be induced by a wide variety of conditions that include , infection, numerous inflammatory conditions, cancer, and liver disease. Levels of tetlh-8-yudezhpyvch may be reduced by other conditions. Therefore, immunological and functional determinations of serum crhth-9-sktrvzebpfq levels may not correlate with the individual's PI genotype. The PI*Z, PI*S, and PI*M alleles are detected by multiplex polymerase chain reaction (PCR) amplification of specific regions of the PI gene, followed by restriction enzyme digestion and capillary electrophoresis. This assay does not test for the presence of other mutations within the gytdn-1-gobjiddwstz gene or non-genetic causes of pnabv-4-mqskfwzwgpo deficiency. Since genetic variation and other factors can affect the accuracy of direct mutation testing, these results should be interpreted in light of clinical and familial data. This test was developed and its performance characteristics have been determined by [facility]. Performance characteristics refer to the analytical performance of the test. 23 RESPIRATORY-THROAT 24 NORMAL OROPHARYNGEAL TRISHA. 25 TISSUE PATHOLOGY REPORT Tissue Pathology Report Status: FINAL Clinical Information and/or Impression: Rash DIAGNOSIS: A) Back : Acute suppurative folliculitis. See comment. 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 PATHOLOGIST: Pavan Arreaga MD, Board Certified in Dermatology and Dermatopathology (electronic signature) For questions regarding this report call Anatomic Pathology at [phone] GROSS DESCRIPTION: A) Specimen is received in formalin, labeled with the patient's name, but no source on the vial and consists of a 0.4 x 0.4 x 0.2 cm. fragment of singletary skin. The surgical margin is inked with blue ink. The specimen is bisected and totally submitted, two pieces in a single cassette. JG:eb 05/10/09 Gross Exam(s) performed at: [facility] [address] [place] [id number] Trauma Counsellor: CHRISTOPHER JIMENEZ MD 26 GLUCOSE REFERENCE RANGE BASED ON FASTING SPECIMEN. 27 LDL-CHOLESTEROL RISK CATEGORY* GOAL VERY HIGH (E.G. DIABETES + CVD) <70 MG/DL HIGH (DIABETICS; CHD RISK EQUIVALENTS) <100 MG/DL MODERATELY HIGH (MULTIPLE(2+) RISK FACTORS) <130 MG/DL 0 TO 1 RISK FACTORS <160 MG/DL * NCEP REPORT. CIRCULATION 2004; 110: 227-239 28 TSH REFERENCE RANGE: FIRST TRIMESTER - 0.20 - 4.70 mU/L SECOND TRIMESTER - 0.30 - 4.10 mU/L THIRD TRIMESTER - 0.40 - 2.70 mU/L 29 25-OHD3 indicates both endogenous production and supplementation. 25-OHD2 is an indicator of exogenous sources such as diet or supplementation. Therapy is based on measurement of Total 25-OHD, with levels <20 ng/mL indicative of Vitamin D deficiency while levels between 20 ng/mL and 30 ng/mL suggest insufficiency. Optimal levels are >30 ng/mL. Procedures Date Code Description Status 10/22/2017 15022 Oximetry Single Determination Completed 07/03/2017 31776 Oximetry Single Determination Completed 07/03/2017 46903 Electrocardiogram Complete Completed 10/10/2016 03950 Oximetry Single Determination Completed 09/18/2016 [id number] Mammogram Completed 08/22/2016 47793 Oximetry Single Determination Completed 07/11/2016 65216 Oximetry Single Determination Completed 07/04/2016 49523 Oximetry Single Determination Completed 06/27/2016 74315 Electrocardiogram Complete Completed 05/06/2015 29861 Spirometry Completed 05/06/2015 23783 Electrocardiogram Complete Completed 03/14/2014 35073 Oximetry Single Determination Completed 02/06/2014 06175 Electrocardiogram Complete Completed 02/06/2014 12167 Oximetry Single Determination Completed 02/06/2014 33116 Spirometry Completed 07/21/2013 95540 Oximetry Single Determination Completed 02/18/2013 38377 Oximetry Single Determination Completed 10/17/2012 65170 Electrocardiogram Complete Completed 10/17/2012 22696 Pure Tone Hearing Test, Air Completed 10/17/2012 00374 Oximetry Single Determination Completed 10/17/2012 57702 Visual Screening Test Of Visual Acuity, Quantitative, Completed Bilateral 10/17/2012 30211 Spirometry Completed 11/23/2011 50642 Oximetry Single Determination Completed 08/22/2011 55847 Oximetry Single Determination Completed 08/08/2011 68385 Oximetry Single Determination Completed 07/26/2011 70918 Oximetry Single Determination Completed 05/04/2011 28964 Oximetry Single Determination Completed 04/04/2011 88029 Oximetry Single Determination Completed 04/04/2011 48213 Electrocardiogram Complete Completed 04/04/2011 92176 Electrocardiogram Complete Completed 02/28/2011 26367 Oximetry Single Determination Completed 11/22/2010 98929 Visual Field Exam Intermediate, Unilateral Or Completed Bilateral 10/28/2010 52330 Electrocardiogram Complete Completed 09/14/2010 87076 Oximetry Single Determination Completed 07/07/2010 46516 Injection Therapeutic Prophylactic Or Diagnostic Completed 06/30/2010 57440 Injection Therapeutic Prophylactic Or Diagnostic Completed 06/22/2010 58254 Injection Therapeutic Prophylactic Or Diagnostic Completed 06/16/2010 19688 Injection Therapeutic Prophylactic Or Diagnostic Completed 06/16/2010 58985 Oximetry Single Determination Completed 05/20/2010 302238201 Bone Mineral Density Test Completed 11/09/2009 52487 Injection Therapeutic Prophylactic Or Diagnostic Completed 11/09/2009 46160 Oximetry Single Determination Completed 11/09/2009 50115 Oximetry Single Determination Completed 07/20/2009 18453 Oximetry Single Determination Completed 07/20/2009 62111 Oximetry Single Determination Completed 05/07/2009 32029 Oximetry Single Determination Completed 05/07/2009 58494 Oximetry Single Determination Completed 05/07/2009 08633 Biopsy Skin Lesion Single Completed 04/22/2009 94253 Oximetry Single Determination Completed 04/22/2009 44319 Airway Inhalation Treatment Completed 04/19/2009 70940 Aerosol Or Vapor Inhalations Subsequent Completed 04/19/2009 55596 Airway Inhalation Treatment Completed 04/12/2009 21903 Spirometry Completed 07/29/2007 21782 Aerosol Or Vapor Inhalations Initial Completed 07/29/2007 67452 Airway Inhalation Treatment Completed 03/29/2007 77918 Destruction Of Flat Warts Or Molluscum Contagiosum, Completed Milia To 14 03/22/2007 42308 Aerosol Or Vapor Inhalations Initial Completed 03/22/2007 86413 Airway Inhalation Treatment Completed 03/22/2007 70645 Destruction Of Lesions 2-14 Completed 03/22/2007 31273 Destruction Of Lesion First Completed 09/03/2006 49020 Spirometry Completed 05/17/2006 92920 Aerosol Or Vapor Inhalations Initial Completed 05/17/2006 01665 Airway Inhalation Treatment Completed 03/15/2006 34180 Spirometry Completed 11/23/2005 55019 Spirometry Completed 11/23/2005 17501 Electrocardiogram Complete Completed 06/29/2005 62105 Bronchospasm Evaluation Completed 04/04/2004 73472 Aerosol Or Vapor Inhalations Initial Completed 04/04/2004 32831 Airway Inhalation Treatment Completed Encounters Type Date Location Provider Dx Diagnosis Office Visit 07/05/2018 Maeve Felton45.901 Unspecified asthma 4:30p Jovan Moss MD with (acute) exacerbation Office Visit 06/20/2018 Kylie Mendez J03.90 Acute tonsillitis, 12:45p s Jovan Moss MD unspecified Office Visit 05/01/2018 Patel Mendez M25.561 Pain in right knee 11:15a Jovan Moss MD M51.36 Other intervertebral disc degeneration, lumbar region Office Visit 03/05/2018 Patel Mendez J45.998 Other asthma 8:45a Jovan Moss MD I10 Essential (primary) hypertension K21.9 Gastro-esophageal reflux disease without esophagitis M25.561 Pain in right knee G47.33 Obstructive sleep apnea (adult) (pediatric) Office Visit 12/06/2017 Patel Mendez, I10 Essential 9:00a Jovan Moss MD (primary) hypertension R06.02 Shortness of breath J45.998 Other asthma K21.9 Gastro-esophageal reflux disease without esophagitis Z68.41 Body mass index (BMI) 40.0-44.9, adult Office Visit 11/15/2017 Patel Mendez J45.41 Moderate 10:15a Jovan Moss MD persistent asthma with (acute) exacerbation R06.02 Shortness of breath Office Visit 11/13/2017 Patel Mendez J45.41 Moderate 2:15p Jovan Moss MD persistent asthma with (acute) exacerbation R06.02 Shortness of breath Office 11/07/2017 Berta Mendez J45.41 Moderate Visit 3:15p Jovan Moss MD persistent asthma with (acute) exacerbation Office 11/01/2017 Patel Mendez, I10 Essential Visit 8:30a MD [place] (primary) hypertension J45.998 Other asthma Z68.41 Body mass index (BMI) 40.0-44.9, adult Office Visit 10/22/2017 Berta Mendez J45.998 Other 10:45a Jovan Moss MD asthma J22 Unspecified acute lower respiratory infection Z68.41 Body mass index (BMI) 40.0-44.9, adult Office Visit 07/03/2017 Patel Mendez, Z00.00 Encntr for 8:45a Jovan Moss MD general adult medical exam w/o abnormal findings I10 Essential (primary) hypertension J45.20 Mild intermittent asthma, uncomplicated K21.9 Gastro-esophageal reflux disease without esophagitis Z68.39 Body mass index (BMI) 39.0-39.9, adult Office Visit 05/17/2017 9:00a Tyler-Kamryn Laura, I10 Essential Medical DANETTE Schwartz (primary) hypertension K21.9 Gastro-esophageal reflux disease without esophagitis R05 Cough Z68.39 Body mass index (BMI) 39.0-39.9, adult Office Visit 05/08/2017 2:45p Tyler-Kamryn Laura, I10 Essential Medical DANETTE Schwartz (primary) hypertension K21.9 Gastro-esophageal reflux disease without esophagitis R05 Cough J45.20 Mild intermittent asthma, uncomplicated E87.6 Hypokalemia Z68.39 Body mass index (BMI) 39.0-39.9, adult Office Visit 05/03/2017 Patel Martinezbeli, I10 Essential 10:00a Jovan Moss MD (primary) hypertension R05 Cough J45.998 Other asthma M79.644 Pain in right finger(s) Z68.39 Body mass index (BMI) 39.0-39.9, adult Office Visit 03/22/2017 Patel Mendez, I10 Essential 10:15a Jovan Moss MD (primary) hypertension E87.6 Hypokalemia R05 Cough J45.998 Other asthma M79.644 Pain in right finger(s) Z68.39 Body mass index (BMI) 39.0-39.9, adult Office Visit 11/14/2016 Patel Mendez, I10 Essential 10:00a Jovan Moss MD (primary) hypertension E87.6 Hypokalemia J45.998 Other asthma Z68.37 Body mass index (BMI) 37.0-37.9, adult Office Visit 10/10/2016 Patel Mendez, I10 Essential 10:00a Jovan Moss MD (primary) hypertension E87.6 Hypokalemia J45.998 Other asthma Z68.37 Body mass index (BMI) 37.0-37.9, adult Office Visit 08/22/2016 Patel Mendez, I10 Essential 11:15a Jovan Moss MD (primary) hypertension J45.998 Other asthma D72.828 Other elevated white blood cell count R05 Cough E87.6 Hypokalemia Office 08/10/2016 Berta Mendez, R10.31 Right lower Visit 1:15p Jovan Moss MD quadrant pain E87.6 Hypokalemia I10 Essential (primary) hypertension Z68.38 Body mass index (BMI) 38.0-38.9, adult Office Visit 07/25/2016 Patel Mendez J45.998 Other asthma 11:00a Jovan Moss MD R05 Cough I10 Essential (primary) hypertension D72.828 Other elevated white blood cell count R49.0 Dysphonia Z68.38 Body mass index (BMI) 38.0-38.9, adult Office Visit 07/11/2016 Patel Mendez, I10 Essential 10:00a Jovan Moss MD (primary) hypertension J45.998 Other asthma R05 Cough R06.02 Shortness of breath Z68.38 Body mass index (BMI) 38.0-38.9, adult Office Visit 07/04/2016 Patel Mendez, J45.998 Other asthma 3:30p Jovan Moss MD R05 Cough I10 Essential (primary) hypertension Z68.38 Body mass index (BMI) 38.0-38.9, adult Office Visit 06/27/2016 Patel Mendez, Z00.00 Encntr for 10:00a Jovan Moss MD general adult medical exam w/o abnormal findings I10 Essential (primary) hypertension E66.9 Obesity, unspecified J45.998 Other asthma R31.29 Other microscopic hematuria Z68.38 Body mass index (BMI) 38.0-38.9, adult Office Visit 08/05/2015 11:30a Patel Castrejon, I10 Essential Medical DANETTE Geller (primary) hypertension R05 Cough D72.89 Other specified disorders of white blood cells K21.9 Gastro-esophageal reflux disease without esophagitis E66.9 Obesity, unspecified Z68.41 Body mass index (BMI) 40.0-44.9, adult Office Visit 05/06/2015 11:30a Patel Castrejon, Z00.00 Encntr for DANETTE Blair general adult medical exam w/o abnormal findings R05 Cough I10 Essential (primary) hypertension K21.9 Gastro-esophageal reflux disease without esophagitis D72.89 Other specified disorders of white blood cells Office Visit 04/23/2015 10:45a Yimi Khan PA R05 Cough I10 Essential (primary) hypertension Office Visit 12/01/2014 12:30p Yimi Khan PA 786.2 Cough 401.1 Hypertension Benign 786.05 Shortness Of Breath Office Visit 10/12/2014 11:30a Yimi Khan PA 786.2 Cough 401.1 Hypertension Benign 786.05 Shortness Of Breath Office Visit 09/07/2014 11:45a Patel Castrejon, 401.1 Hypertension DANETTE Blair Benign 786.2 Cough Office Visit 08/17/2014 2:00p Patel Castrejon, 401.1 Hypertension DANETTE Blair Benign 719.46 Pain Joint Lower Leg Office Visit 08/10/2014 4:45p Yimi Khan PA 786.2 Cough 401.1 Hypertension Benign Office Visit 07/14/2014 3:15p Yimi Khan PA 786.2 Cough 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 401.1 Hypertension Benign 493.90 Asthma Unspec W/O Status Asthmaticus Office Visit 06/16/2014 11:45a Patel Mendez 786.2 Cough MD [place] 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 401.1 Hypertension Benign Office Visit 04/14/2014 12:15p Patel Mendez 786.2 Dasia Moss MD 110.5 Dermatophytosis Body 401.1 Hypertension Benign Office Visit 03/14/2014 Patel Mendez 493.90 Asthma Unspec 12:00p Jovan Moss MD W/O Status Asthmaticus 786.2 Cough 786.05 Shortness Of Breath 462 Pharyngitis Acute Office Visit 02/06/2014 Patel Mendez V70.0 Examination 2:45p Jovan Moss MD General Medical Routine AT Health Care Facility 493.90 Asthma Unspec W/O Status Asthmaticus 786.2 Cough 786.05 Shortness Of Breath 401.1 Hypertension Benign Office Visit 07/21/2013 Patel Escoto, 493.90 Asthma Unspec W/O 11:30a 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, 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 466.0 Bronchitis Acute 401.1 Hypertension Benign Office Visit 07/14/2013 Patel Escoto, 466.0 Bronchitis Acute 1:30p 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, [employer]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 Office Visit 06/19/2013 Herbert Mendez, 401.1 Hypertension 10:30a Shelia Moss MD V76.10 Screening For Malignant Neoplasm Breast Office Visit 02/18/2013 Patel Mendez, 493.90 Asthma Unspec 3:00p Jovan Moss MD W/O Status Asthmaticus 401.1 Hypertension Benign Office Visit 10/17/2012 10:45a Sandra Goodman 493.90 Asthma Unspec W /O Status Asthmaticus V70.0 Examination General Medical Routine AT Health Care Facility V76.10 Screening For Malignant Neoplasm Breast 401.1 Hypertension Benign Office Visit 07/18/2012 9:30a Sandra Goodman 401.1 Hypertension Benign 268.9 Vitamin D Deficiency Unspec 493.90 Asthma Unspec W/O Status Asthmaticus Office Visit 11/23/2011 11:00a Glen Morgan PA 724.2 Lumbago 717.49 Derangement Lateral Meniscus Other 401.1 Hypertension Benign 729.2 Neuralgia Neuritis & Radiculitis Unspec 493.90 Asthma Unspec W/O Status Asthmaticus 278.00 Obesity Unspec Office Visit 08/22/2011 4:45p Patel Mendez 786.2 Cough MD [place] 461.0 Sinusitis Acute Maxillary Office Visit 05/04/2011 2:00p Berta [facility] Liz 401.1 Hypertension Medical Benign 278.00 Obesity Unspec 724.2 Lumbago Office Visit 10/28/2010 2:15p Patel Mendez, 281.1 Vitamin B12 Jovan White MD Deficiency Anemia Other 401.1 Hypertension Benign 780.52 Insomnia Unspecified V70.0 Examination General Medical Routine AT Health Care Facility 278.01 Obesity Morbid V76.12 Screening Mammogram Malig Paolo Other Office Visit 09/14/2010 Patel Mendez, 729.2 Neuralgia 1:45p Jovan White MD Neuritis & Radiculitis Unspec 780.52 Insomnia Unspecified Office Visit 08/11/2010 11:45a Cindy Mcintyre, 401.1 Hypertension Benign 493.90 Asthma Unspec W/O Status Asthmaticus 782.0 Skin Sensation Disturbance 723.1 Cervicalgia Office Visit 06/30/2010 10:45a Cindy Mcintyre, 401.1 Hypertension Benign 493.90 Asthma Unspec W/O Status Asthmaticus 704.9 Hair & Hair Follicle Diseases Unspec 281.1 Vitamin B12 Deficiency Anemia Other 530.81 Esophageal Reflux Office Visit 06/16/2010 12:45p Cindy Mcintyre, 401.1 Hypertension Benign 493.90 Asthma Unspec W/O Status Asthmaticus 704.9 Hair & Hair Follicle Diseases Unspec 281.1 Vitamin B12 Deficiency Anemia Other 530.81 Esophageal Reflux 786.2 Cough Office Visit 04/21/2010 9:30a Cindy Mcintyre, 401.1 Hypertension Benign 338.29 Other Chronic Pain E930.9 Antibiotic Unspec Adverse Effects Office Visit 11/09/2009 4:30p Glen Morgan, 493.90 Asthma Unspec W/O PA Status Asthmaticus 724.2 Lumbago 401.1 Hypertension Benign Office Visit 07/20/2009 Berta Franklin 493.90 Asthma Unspec 5:50p DANETTE Brock W/O Status Asthmaticus 786.2 Cough 401.1 Hypertension Benign 465.9 URI Upper Respiratory Infections Acute Unspec Sites Office Visit 06/14/2009 5:15p Maggie Landeros MD 493.90 Asthma Unspec W/O Status Asthmaticus 401.1 Hypertension Benign 782.8 Skin Texture Changes V14.1 History Personal Allergy Antibiotic Agent Other Office Visit 05/24/2009 5:15p Maggie Landeros MD 493.90 Asthma Unspec W/O Status Asthmaticus 461.8 Sinusitis Acute Other 401.1 Hypertension Benign 782.8 Skin Texture Changes Office Visit 05/07/2009 Berta De La O, 493.90 Asthma Unspec 2:40p Medical Glen PA W/O Status Asthmaticus 462 Pharyngitis Acute 782.8 Skin Texture Changes 401.1 Hypertension Benign V14.0 History Personal Allergy Penicillin V14.1 History Personal Allergy Antibiotic Agent Other Office Visit 04/22/2009 1:35p Glen Morgan, 493.90 Asthma Unspec W/O PA Status Asthmaticus 461.8 Sinusitis Acute Other 401.1 Hypertension Benign Office Visit 04/19/2009 2:15p Maggie Landeros MD 493.90 Asthma Unspec W/O Status Asthmaticus 461.8 Sinusitis Acute Other 786.2 Cough Office Visit 04/12/2009 3:30p Maggie Landeros MD 493.90 Asthma Unspec W/O Status Asthmaticus 401.1 Hypertension Benign 724.2 Lumbago 692.89 Dermatitis Due To Spec Agents Other Office Visit 01/22/2009 Patel Mendez, 729.4 Fasciitis 10:45a Medical MD [place] Unspec 401.1 Hypertension Benign Office Visit 09/14/2008 3:00p Maggie Landeros MD 724.2 Lumbago 724.3 Sciatica 786.09 Dyspnea & Respiratory Abnormalities Other 461.8 Sinusitis Acute Other 728.71 Fibromatosis Plantar Fascia 719.42 Pain Joint Upper Arm Office Visit 08/19/2008 5:00p Maggie Landeros MD 724.2 Lumbago 724.3 Sciatica 786.09 Dyspnea & Respiratory Abnormalities Other 401.1 Hypertension Benign Office Visit 07/29/2008 5:00p Maggie Landeros MD 724.2 Lumbago 786.09 Dyspnea & Respiratory Abnormalities Other Office Visit 06/10/2008 5:15p Maggie Landeros MD 724.2 Lumbago 461.8 Sinusitis Acute Other 728.71 Fibromatosis Plantar Fascia 786.09 Dyspnea & Respiratory Abnormalities Other [facility] 461.8 Sinusitis Acute 5:45p Jovan OSPINA Other 462 Pharyngitis Acute 388.70 Otalgia & Earache Unspec Office Visit 05/04/2008 4:45p Maggie Landeros MD 724.2 Lumbago 729.1 Fibromyalgia Office Visit 11/25/2007 4:30p Maggie Landeros MD 719.47 Pain Joint Ankle & Foot Office Visit 09/09/2007 4:45p Maggie Landeros MD 729.5 Pain In Limb Office Visit 08/21/2007 4:30p Maggie Landeros MD 780.79 Malaise And Fatigue Other 786.09 Dyspnea & Respiratory Abnormalities Other 472.0 Rhinitis Chronic 462 Pharyngitis Acute Office Visit 07/29/2007 1:00p Maggie Landeros MD 465.9 URI Upper Respiratory Infections Acute Unspec Sites 493.90 Asthma Unspec W/O Status Asthmaticus 786.09 Dyspnea & Respiratory Abnormalities Other Office Visit 06/10/2007 4:45p Maggie Landeros MD 493.90 Asthma Unspec W/O Status Asthmaticus 786.2 Cough V06.5 Tetanus Diphtheria (DT) Office Visit 09/03/2006 5:30p Maggie Landeros MD 786.09 Dyspnea & Respiratory Abnormalities Other 401.1 Hypertension Benign Office Visit 08/08/2006 3:45p Maggie Landeros MD 401.1 Hypertension Benign Office Visit 09/04/2005 11:15a Maggie Landeros MD 462 Pharyngitis Acute Plan of Treatment Future Appointment(s):07/09/2018 1:30 pm - Tremayne Mendez MD at [facility]07/05/2018 - [place] Mendez MDJ45.901 Unspecified asthma with (acute) exacerbationNew Medication:Prednisone 10 mg - 4 po qd x3days, then 3 po qd x3days, then 2 po qd x3 days, then 1 po qd x 3days.Comments:Treat with a tapering course of Prednisone Go to ER if worseFollow up:Keep previously scheduled appointment
--- OUTSIDE RECORDS SUMMARY | 2018-07-16 18:24 | XMS REPORT | Continuity of Care Document ---
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 Hand Dominance Left-handed Advance Directive 02/06/2014 Negative For Health Care Form given [employer] Sports Hobbies Music ETOH Use Rarely consumes alcohol Recreational Drug Use Denies Drug Use Tobacco Use Reviewed: 03/03/15 Patient has never smoked Smoking Status Reviewed: 05/01/18 Patient has never smoked Exercise Type/Frequency Does [...] Form Strength Qnty SIG Indications Ordering Provider Doxycycline 06/20 Active Tablets 100mg 14tab 1 by mouth J03.90 Jhonatan Hyclate s twice a day Gilda donis MD Spacer Chamber 10/10 Active 1unit use with the J45.998 Jhonatan For Inhaler /2016 s Ventolin Dx Gilda j45.998 MD gagandeep Diltiazem HCL 07/25 Active Caps ER 240mg 90cap 1 by mouth I10 Jhonatan, ER /2016 24HR s every day Gilda donis MD Albuterol 06/27 Active Nebulizer (2.5mg/3M 90ml inhale 3 J45.998 Jhonatan, L) 0.083% milliliters Gilda via MD gagandeep nebulizer every 4 hours as needed for bronchospasm Nebulizer 07/16 Active Device 1unit Dx: j45.998 J45.998 Jhonatan, s Gilda donis MD Ventolin HFA 07/14 Active Aerosol 108(90Bas 1unit 2 puffs as J45.20 Jhonatan, /2013 e) s needed for Ifechukwu mcg/Act sob MD gagandeep Epipen 2-Yrn Active Solution 0.3mg/0.3 3unit use as Ojugbeli Auto-Inject ML s directed Gilda donis MD Gabapentin Active Capsules 300mg take 3 Unknown capsule by mouth bid Naproxen Sodium Active Tablets 220mg as directed Unknown on bottle Buspirone HCL 12/06 Hx Tablets 10mg 60tab 1 by mouth Justina, s twice a day Gilda donis MD 03/04 Alprazolam 11/13 Hx Tablets 0.25mg 30tab 1 by mouth Jhonatan s tid/prn Gilda donis MD 12/05 Prednisone 11/07 Hx Tablets 20mg 14tab 1 tab by Jhonatan s mouth twice Gilda - a kacie donis MD 12/05 Doxycycline 10/22 Hx Tablets 100mg 14tab 1 by mouth J22 Jhonatan Hyclate s twice a day Gilda donis MD 10/31 Benzonatate 10/22 Hx Capsules 200mg 30cap take one J22 Jhonatan s three times Sarah - a kacie donis MD 11/09 Aspirin Enteric 05/[address] 81mg 30tab 1 by mouth I10 Jhonatan Coated Adult s every day Gilda Low Strength Kei donis MD 06/04 Lansoprazole 05/[address] 30mg 30cap 1 by mouth K21.9 Jhonatan, s every day Gilda donis MD 10/08 Valsartan 05/08 Hx Tablets 160mg 30tab 1 by mouth I10 Jhonatan s every day Gilda donis MD 06/11 [id number]-AYQ-0 03/22 Hx Patches 0.1mg/24H 4unit 1 patch I10 Jhonatan Weekly R s weekly Gilda donis MD 05/03 Potassium 08/10 Hx Tablets ER 20Meq 31tab 1 every day Ojugbeli, Chloride ER /2017 s Gilda donis MD 11/14 Chlorthalidone 07/25 Hx Tablets 50mg 30tab 1 by mouth I10 Jhonatan s every day Gilda donis MD 10/10 [id number]-RXA-5 07/25 Hx Patches 0.1mg/24H 4unit 1 patch I10 Jhonatan Weekly R s weekly Gilda donis MD 10/09 Budesonide 07/11 Hx Suspension 0.5mg/2ML 60ml 2ml [facility] Chata Mendez, bid/prn Gilda donis MD 07/11 Asmanex 07/11 Hx Aerosol 220mcg/In 1unit use 2 puffs Reji Kaur h s two times a Ifechukwu Metered Doses - MD gagandeep 08/07 Pulmicort 07/10 Hx Aerosol 180mcg/Ac 1unit 1 puff twice Gary Kaurer t s a day Gilda donis MD 07/10 Breo Ellipta 07/10 Hx Aerosol 200-25mcg 60uni 1 inhalation Chata Mendez, /Inh ts every day Gilda donis MD 07/10 Budesonide 07/04 Hx Suspension 0.5mg/2ML 60ml 2ml [facility] Chata Mendez, bid/prn Gilda donis MD 07/10 Prednisone 07/04 Hx Tablets 10mg 21tab 2 tabs by Chata Mendez, s mouth daily Gilda - for 1 week MD gagandeep 07/24 then 1 tab daily for 1 week Benzonatate 07/04 Hx Capsules 200mg 50cap take one Chata Mendez, s every 4 Ifechukwu - hours as MD gagandeep 08/10 Montelukast 06/27 Hx Tablets 10mg 30tab 1 by mouth Chata Mendez Sodium s every day Gilda donis MD 08/10 Chlorthalidone 06/27 Hx Tablets 25mg 90tab 1 by mouth I10 Jhonatan s every day Gilda donis MD 07/25 [id number]-HBC-6 06/27 Hx Patches 0.2mg/24H 4unit Apply one I1 Jhonatan Weekly R s patch Gilda - qweekly MD gagandeep 07/25 Amlodipine 05/06 Hx Tablets 10mg 90tab 1 by mouth I10 Jhonatan Besylate s every day Gilda donis MD 07/25 Doxycycline 04/23 Hx Tablets 100mg 20tab Take 1 J45.998 Zoey Hyclate s tablet by Catie - mouth 2 05/06 times per day for 10 days for infection Diflucan 04/23 Hx Tablets 150mg 1tabs one tablet J45.998 Zoey once by , Catie - mouth x 1 05/06 Tussionex 08/10 Hx Liquid ER 10-8mg/5M 150ml take 5 786.2 Zoey Carsonkinetic L milliliters , Catie, Extended - by mouth MD Release 10/09 every hours as needed for cough Tussionex 07/14 Hx Liquid ER 10-8mg/5M 473ml Take 5 ml by 786.2 Zoey Baernkinetic L mouth every , Catie, Extended - 12 hours as MD Release 08/09 needed for cough Portable 07/14 Hx 1unit 493.90 Zoey Nebulizer With s Catie Battery - 05/06 Benzonatate 04/14 Hx Capsules 200mg 100ca 1 by mouth 786.2 Jhonatan, ps qid/prn Gilda donis MD 07/13 Clotrimazole/Be 04/14 Hx Cream 1-0.05% 60gm apply every 110.5 Jhonatan tamethasone day Gilda Dipropionate Kei donis MD 06/16 Cipro 03/14 Hx Tablets 500mg 14tab 1 po bid 462 Ojugbel, missy donis MD 04/13 Irbesartan 02/06 Hx Tablets 75mg 30tab 1 po qd 401.1 Ojessica, s Gilda donis MD 06/16 Cipro 07/14 Hx Tablets 250mg 14tab one tab po 466.0 s bid for 7 Sujata, - days SCIENTIFIC AIDE 02/04 Diflucan 07/14 Hx Tablets 150mg 2tabs 1 po qd 466.0 Escoto Sujata, - SCIENTIFIC AIDE 02/04 Prednisone 07/14 Hx Tablets 10mg 30tab 4 tabs for 3 466.0 s days, 3 tabs Sujata, - for 3 days, SCIENTIFIC AIDE 02/06 2 tabs for 3 days, and 1 tab for 3 days Albuterol 07/07 Hx Nebulizer 0.63mg/3M 1box one via neb J45.998 [facility] L every 4-6 , Catie, - hours as 06/27 needed for sob/coughing . J45.40 Vitamin D 11/30/2011 Hx Capsules [id number] 15caps one po q week 268.9 Kei Mendez MD 07/18/2012 Omeprazole 11/29/[address] 40mg 90caps 1 po qd 530.81 Kei Mendez MD 07/18/2012 PPD 11/23/[address] 401.1 Kei Mendez MD 02/17/2013 Prednisone 09/01/2011 Hx Tablets 20mg 10tabs 1 po bid Kei Mendezechukwud 09/04/2011 MD quincy Doxycycline 08/08/2011 Hx Capsules 100mg 28caps 1 po bid 461.0 Schaus, Cat Hyclate - herine, SCIENTIFIC AIDE 08/21/2011 Flonase 08/08/2011 Hx Suspension 50mcg/Act 1units one spray per 461.0 Schaus,Cat - nare bid herine, SCIENTIFIC AIDE 11/22/2011 Metoprolol 08/08/2011 Hx Tablets 25mg 90tabs one po qd 785.0 Schaus,Cat Tartrate - herine, SCIENTIFIC AIDE 08/21/2011 Diflucan 08/08/2011 Hx Tablets 150mg 2tabs 1 po qd Jhonatan, - MD Cindy 11/22/2011 Melatonin 02/28/2011 Hx Tablets Sub 5mg 60tabs 2 tabs po qhs 780.52 Jhonatan, - MD Cindy 04/03/2011 Vitamin B-12 10/28/2010 Hx Tablets Sub 2500mcg 60tabs 1 po bid 281.1 Robynjugobed, - MD Cindy 08/07/2011 Symbicort 10/28/2010 Hx Aerosol 160-4.5mcg 1units inhale 2 puffs 493.90 Ojugobed, - /Act by mouth 2 MD Cindy 04/03/2011 times a day Ibuprofen 09/14/2010 Hx Tablets 800mg 90tabs 1 po tid with 729.2 Robynjugbeli, - food MD Cindy 02/17/2013 Benadryl 09/14/2010 Hx Tablets 25mg 60tabs 1 to 2 po qhs 780.52 Jhonatan, - MD Cindy 07/18/2012 Clophed 06/16/2010 Hx cough Jhonatan, - suppressant MD Cindy 04/03/2011 10cc q every 6 hours as needed for cough Dexilant 06/16/[address] 60mg 90caps 1 po qd 530.81 Kei Mendez MD 11/29/2011 Pulmicort 05/19/2010 Hx Aerosol 90mcg/Act Jhonatan Flexhaler - MD Cindy 04/03/2011 Vitamins For 05/19/2010 Hx Tablets one po qd 704.9 Ojugbeli, Hair - MD Cindy 08/07/2011 Fluconazole 04/21/2010 Hx Tablets 150mg 4tabs Take 1 tablet E930.9 Ojugbeli, - by mouth daily MD Cindy 04/14/2010 Fluconazole 04/21/2010 Hx Tablets 150mg 4tabs one po prn E930.9 Robynjugbeledison, - MD Cindy 04/14/2010 Diclofenac 11/09/[address] 50mg 30tabs 1 tab po 2 or 724.2 Ojugbeli, Sodium - 3 times daily MD Cindy 08/07/2011 Ibuprofen 09/13/2009 Hx Tablets 800mg 90tabs 1 po tid prn Jhonatan, - MD Cindy 09/14/2010 Omron Micro 05/24/2009 Hx #[id number] 1units Use q4h prn Ritu, Air Vibrating - MD Maggie Mesh 04/03/2011 Nebulizer Nystatin 05/14/2009 Hx Cream [id number] 60g apply Kie Chaney /GM liberally to MD Maggie 07/20/2009 affected area qd-bid prn Avelox 05/07/2009 Hx Tablets 400mg 10tabs 1 tab po daily 462 Ojugbeledison, - x 10 days MD Cindy 06/14/2009 [...] 10tabs 1 po qd x 10 461.8 Ritu - mustapha Muller MD 05/06/2009 Prednisone 04/19/2009 [...] apply to 729.4 Ojugbeli, - [facility]2009 swapnil mathew MD Voltaregautam 01/21/2009 Hx Gel 1% 1tube apply to Ojugbeli, - [facility] 04/12/2009 MD Sen maganaumemontye 01/21/2009 Hx Tablets 750mg 60tabs 1 po bid Ojuglissai, - [facility] 04/12/2009 MD quincy Nexium 12/16/2008 Hx CPDR [...] 6tabs 2 po day 1, Kei Chaney then 1 po qd MD Maggie 07/28/2008 until done Tramadol HCL 05/04/2008 Hx Tablets 50mg 40tabs 1 po qid prn Kei Chaney MD 08/18/2008 Catapres-TTS- 04/08/2008 Hx Patches 0.3mg/24HR 12units apply 1 patch I10 Robynjugobed, 3 - Weekly transdermally echukwud 06/27/2016 weekly, remove MD quincy old patch Norvasc 03/05/2008 Hx Tablets 10mg 90tabs 1 po qd 401.1 Jhonatan, - Ifechukwud 02/04/2014 MD quincy Albuterol 02/04/2008 Hx Aerosol 90mcg/Act 2units 1 puff qid prn 493.90 Kei Chaney MD 07/21/2013 Omnaris Hx Suspension 50mcg/Act 12.500g one spray bid Unknown - m 04/03/2011 Oxycodone/Dillon Hx Tablets 5-325mg 120tabs 1-2 po q 6 prn 729.2 Jhonatan taminokiya - MD Cindy 04/03/2011 Levofloxacin Hx Tablets 750mg 7tabs 1 [...] B MD Cindy Cyanocobalamin To 1000 mcg [id number] Injection Vitamin 06/30 Administered Injection Ojugbeli, B MD Cindy Cyanocobalamin To 1000 mcg [id number] Injection Vitamin 06/22 Administered Injection Ojugbeli, B MD Cindy Cyanocobalamin To 1000 mcg [id number] Vitamin B-12 06/22 Administered Injection Penree DANETTE Carroll Injection Vitamin 06/16 Administered Injection Ojugbeli, B MD Cindy Cyanocobalamin To 1000 mcg [id number] Injection 11/09 Administered Injection Ojugbeli, Ketorolac /2009 MD Cindy Tromethamine Per 15 MG (Toradol)[id number] Injection 11/09 Administered Injection Penree, Ketorolac /2009 Glen Tromethamine Per PA 15 MG (Toradol)[id number] 9501 Inj. 04/19 Administered Injection Laphyllis Methylprednisolone /2008 MD Maggie sodium Succinate 125 MG Im Inj. 04/19 Administered Injection Ritu, Methylprednisolone /2008 MD Maggie sodium Succinate 125 MG Im Immunizations CPT Code Status Date Vaccine Lot # [id number] Given 05/04/2011 Influenza Split 5yrs and above Afluria [id number] 41146 Given 03/30/2009 Influenza Split 5yrs and above Afluria 23738 Given 03/30/2009 Influenza Split 5yrs and above Afluria [id number] 24650 Given 06/10/2007 Pneumococcal Vaccine 23 valent 67487 Given 06/10/2007 Td&P (Adacel) 97360 Given 03/10/2005 Influenza Split 5yrs and above Afluria 03286 Given 05/03/2004 Influenza Split 5yrs and above Afluria Vital Signs Date Vital Result Comment 06/20/2018 1:09pm BP Systolic 122 mmHg BP [...] kg/m2 O2 % BldC Oximetry 96 % Ra 08/11/2010 12:29pm BP Systolic 128 mmHg BP [...] H/L Range Note Laboratory test 11/13/2017 [facility] D-Dimer,Sensitive <0.19 mg/L (< 0.50) finding Laboratory test 11/13/2017 [facility] B-Type <pending> finding (315)- - Natriuretic D-Dimer Sensitive <pending> Xray 05/03/2017 MDR - [place] [facility] 05/24 [id number] Right [place] [address] [phone] BMP W/Egfr 11/14/2016 [facility] Sodium 142 mmol/L (136-145 ) Potassium 4.4 mmol/L (3.6-5.2) Chloride 107 mmol/L (100-108) Co2 26 mmol/L (22-31) Anion Gap 9 mmol/L (7-16) Urea Nitrogen 13 mg/dL (7-24) Creatinine 0.68 mg/dL (0.60-1.00) BUN/Creat Ratio 19.1 RATIO (10.0-20.0) Glucose 75 mg/dL (70-99) Calcium 8.9 mg/dL (8.4-10.2) GFR >60 ml/min/1.73m2 (>59) GFR ( Amer) >60 ml/min/1.73m2 (>59) GFR Interpretation <SEE NOTE> 1 BMP W/Egfr 10/10/2016 [facility] Sodium 137 mmol/L (136-145) Potassium 3.5 mmol/L Low (3.6-5.2) Chloride 102 mmol/L (100-108) Co2 27 mmol/L (22-31) Anion Gap 8 mmol/L (7-16) Urea Nitrogen 14 mg/dL (7-24) Creatinine 0.77 mg/dL (0.60-1.00) BUN/Creat Ratio 18.2 RATIO (10.0-20.0) Glucose 89 mg/dL (70-99) Calcium 9.2 mg/dL (8.4-10.2) GFR >60 ml/min/1.73m2 (>59) GFR ( Amer) >60 ml/min/1.73m2 (>59) GFR Interpretation <SEE NOTE> 2 BMP W/Egfr 08/22/2016 [facility] Sodium 139 mmol/L (136-145) Potassium 3.3 mmol/L [...] <SEE NOTE> 3 BMP W/Egfr 08/10/2016 [facility] Sodium 140 mmol/L (136-145) Potassium 3.3 mmol/L Low (3.6-5.2) Chloride 103 mmol/L (100-108) Co2 30 mmol/L (22-31) Anion Gap 7 mmol/L (7-16) Urea Nitrogen 18 mg/dL (7-24) Creatinine 0.82 mg/dL (0.60-1.00) BUN/Creat Ratio 22.0 RATIO High (10.0-20.0) Glucose 88 mg/dL (70-99) Calcium 8.4 mg/dL (8.4-10.2) GFR >60 ml/min/1.73m2 (>59) GFR ( Amer) >60 ml/min/1.73m2 (>59) GFR Interpretation <SEE NOTE> 4 Laboratory 07/18/2016 [facility] TSH,Ultrasensitive @ 0.860 (0.360- 4.170) test finding mIU/L Lipid Panel 07/18/2016 [facility] Cholesterol @ 174 mg/dL (0-200) Triglyceride @ 150 mg/dL (30-200) 5 HDL Cholesterol @ 47 mg/dL (>40) 6 Chol/HDL Ratio 3.7 RATIO 7 LDL Chol (Calc) 97 mg/dL (<130) 8 CBC W/Auto Diff & PLT 07/18/2016 [facility] WBC 15.3 10*3/uL High (4.1- 11.0) RBC 5.06 10*6/uL (4.00-5.40) HGB 14.9 g/dL (12.0-16.0) HCT 45.2 % (36.0-47.0) MCV 89.5 fL (80.0-95.0) MCH 29.5 pg (27.0-32.0) MCHC 33.0 g/dL (32.0-36.0) RDW 13.8 % (10.5-14.5) PLT 407 10*3/uL (150-450) MPV 7.6 fL (7.1-10.7) Neut % 80.7 % High (35.0-75.0) Lymph % 13.2 % Low (16.0-52.0) [place] % 5.1 % (0.0-8.0) Eos % 0.5 % (0.0-5.0) Baso % 0.5 % (0.0-4.0) Neut # 12.4 10*3/uL High (1.8-7.7) Lymph # 2.0 10*3/uL (1.2-4.8) [place] # 0.8 10*3/uL (0.0-0.8) Eos # 0.1 10*3/uL (0.0-0.5) Baso # 0.1 10*3/uL (0.0-0.2) CMP W/Egfr 07/18/2016 [facility] Sodium 140 mmol/L (136-145) Potassium 3.7 mmol/L [...] GFR Interpretation <SEE NOTE> 10 Xray 07/11/2016 [facility] VQ scan today 12:15pm [address] [place] [address], [address] [place] [id number] [phone] Laboratory test 06/27/2016 [facility] Cytology LABORATORY 11 finding Fluid ALLIA <SEE Specimen NOTE> Urine Culture SPECIMEN DESCRI> 12 Bilirubin Urine NEGATIVE (Neg) Urinalysis W/Micro 06/27/2016 [facility] Color MIKAEL Appearance TURBID Spec Grav Urine [...] 08/18/2014 Glucose Serum 91 finding Xray 06/16/2014 [facility] Ugi Series printed for [phone] Xray 03/14/2014 [facility] [address]- ct of 03/27 @ 9+ [phone] chest w/o HPV Dna Hig/Low 10/28/2010 [facility] Low Risk NOT DETECTED Not Detected 13 Risk (Thinprep) [phone] High Risk NOT DETECTED Not Detected 14 Vitamin D, 25 10/06/2010 [facility] Vitamin D,25-Oh,Total 27 ng/mL Low 30-100 Hydroxy [phone] Vitamin D,25-Oh,D3 27 ng/mL Vitamin D,25-Oh,D2 <4 ng/mL 15 CBC W/ Diff & PLT 10/06/2010 [facility] WBC 8.5 thous/L 3.8-10.8 [phone] RBC 4.65 mill/L 3.80-5.10 Hemoglobin 13.9 g/dL 11.7-15.5 Hematocrit 42.3 % 35.0-45.0 MCV 91.2 FL 80.0-100.0 MCH 29.9 pg 27.0-33.0 MCHC 32.8 g/dL 32.0-36.0 RDW 14.6 % 11.0-15.0 Platelet Count 366 thous/L 140-400 Neutrophils,Absolute 5290 cells/L 8438-2589 Lymphocytes,Absolute 2350 cells/L 850-3900 Monocytes,Absolute 620 cells/L 200-950 Eosinophils,Absolute 180 cells/L 15-500 Basophils,Absolute 30 cells/L 0-200 Total Neutrophils,% 62 % 38-80 Total Lymphocytes,% 28 % 15-49 Monocytes,% 7 % 0-13 Eosinophils,% 2 % 0-8 Basophils,% 0 % 0-2 Laboratory test finding 10/06/2010 [facility] T3,Free 3.4 pg/mL 2.3-4.2 [phone] Magnesium 2.0 mg/dL 1.5-2.5 Vitamin B12/Folate 10/06/2010 [facility] Vitamin B12,Serum 700 pg/mL 200- 1100 Panel Serum [phone] Folate,Serum 16.8 NG/ML 16 Laboratory test finding 10/06/2010 [facility] Vitamin A 49 g/dL 38-98 [phone] Zinc 97 g/dL 60-130 TSH & Free T4 10/06/2010 [facility] TSH,3RD 2.27 mIU/L 0.40-4.50 17 (Centrex) [phone] Generation T4,Free 1.2 ng/dL 0.8-1.8 Lipid Panel 04/14/2010 [facility] Cholesterol 165 mg/dL 125-200 18 [phone] HDL Cholesterol 42 mg/dL Low > Or=46 Triglycerides 149 mg/dL <150 Cholesterol/HDL Ratio 3.9 < Or=5.0 LDL Chol,Calculated 93 mg/dL <130 19 Laboratory test 04/14/2010 [facility] TSH Autoantibody NEGATIVE Negative finding [phone] Vitamin D, 25 04/14/2010 [facility] Vitamin 22 ng/mL Low 30-100 Hydroxy [phone] D,25-Oh,Total Vitamin D,25-Oh,D3 22 ng/mL Vitamin D,25-Oh,D2 <4 ng/mL 20 Comp Metabolic Panel 04/14/2010 [facility] Sodium 138 mmol/L 135-146 [phone] Potassium 4.3 mmol/L 3.5-5.3 Chloride 104 mmol/L [...] 2.2-3.9 A/G Ratio 1.4 1.0-2.1 Egfr Non-Afr. Angolan >60 ML/MIN/1.73M2 > Or=60 Egfr >60 ML/MIN/1.73M2 > Or=60 CBC W/ Diff & PLT 04/14/2010 [facility] WBC 9.7 thous/L 3.8-10.8 [phone] RBC 4.85 mill/L 3.80-5.10 Hemoglobin 14.5 g/dL 11.7-15.5 Hematocrit 43.8 % 35.0-45.0 MCV 90.4 FL 80.0-100.0 MCH 29.9 pg 27.0-33.0 MCHC 33.1 g/dL 32.0-36.0 RDW 13.6 % 11.0-15.0 Platelet Count 376 thous/L 140-400 Platelet Sufficiency NORMAL Normal Neutrophils,Absolute 6540 cells/L [phone] Lymphocytes,Absolute 2280 cells/L 850-3900 Monocytes,Absolute 690 cells/L 200-950 Eosinophils,Absolute 160 cells/L 15-500 Basophils,Absolute 40 cells/L 0-200 Total Neutrophils,% 68 % 38-80 Total Lymphocytes,% 23 % 15-49 Monocytes,% 7 % 0-13 Eosinophils,% 2 % 0-8 Basophils,% 0 % 0-2 RBC Morphology NORMAL Laboratory test 06/30/2009 [facility] Ige,Serum 53 kU/L <115 finding [phone] CBC W/ Diff & PLT 06/30/2009 [facility] WBC 9.9 thous/L 3.8-10.8 [phone] RBC 4.60 mill/L 3.80-5.10 Hemoglobin 13.9 g/dL 11.7-15.5 Hematocrit 41.8 % 35.0-45.0 MCV 90.8 FL 80.0-100.0 MCH 30.3 pg 27.0-33.0 MCHC 33.3 g/dL 32.0-36.0 RDW 13.4 % 11.0-15.0 Platelet Count 381 thous/L 140-400 Platelet Sufficiency NORMAL Normal Neutrophils,Absolute 6560 cells/L [phone] Lymphocytes,Absolute 2550 cells/L 850-3900 Monocytes,Absolute 670 cells/L 200-950 Eosinophils,Absolute 100 cells/L 15-500 Basophils,Absolute 40 cells/L 0-200 Total Neutrophils,% 66 % 38-80 Total Lymphocytes,% 26 % 15-49 Monocytes,% 7 % 0-13 Eosinophils,% 1 % 0-8 Basophils,% 0 % 0-2 RBC Morphology NORMAL Alpha-1 06/30/2009 [facility] Zqakw-1-Ynkjroarbrx 152 83-199 Antitrypsin,QN/Mut,[place] [phone] mg/dL Alpha-1 Antitrypsin Mutat SEE BELOW 22 Clinical Indication 786.2/493.90 Referring Physician MAGGIE CHANEY Laboratory test 06/30/2009 [facility] Wbcjb-5-Ethtqupwsvg 149 mg/dL 83-199 finding [phone] Culture,Throat 05/07/2009 [facility] 23 [phone] -THRO <SEE NOTE> Final Report (SEE NOTE) 24 Tissue Pathology 05/07/2009 [facility] Results (SEE NOTE) 25 [phone] CBC W/ Diff & PLT 04/14/2009 [facility] WBC 9.9 thous/L 3.8-10.8 [phone] RBC 4.70 mill/L 3.80-5.10 Hemoglobin 14.6 g/dL 11.7-15.5 Hematocrit 43.1 % 35.0-45.0 MCV 91.6 FL 80.0-100.0 MCH 31.1 pg 27.0-33.0 MCHC 34.0 g/dL 32.0-36.0 RDW 13.4 % 11.0-15.0 Platelet Count 400 thous/L 140-400 Platelet Sufficiency NORMAL Normal Neutrophils,Absolute 8310 cells/L High 4065-8911 Lymphocytes,Absolute 1340 cells/L 850-3900 Monocytes,Absolute 260 cells/L 200-950 Eosinophils,Absolute 0 cells/L Low 15-500 Basophils,Absolute 20 cells/L 0-200 Total Neutrophils,% 84 % 38-80 Total Lymphocytes,% 13 % 15-49 Monocytes,% 3 % 0-13 Eosinophils,% 0 % 0-8 Basophils,% 0 % 0-2 RBC Morphology NORMAL CMP W/GFR 04/14/2009 [facility] Sodium 140 mmol/L 135-146 [phone] Potassium 4.3 mmol/L 3.5-5.3 Chloride 104 mmol/L [...] 2.2-3.9 A/G Ratio 1.3 1.0-2.1 Egfr Non-Afr. Angolan >60 ML/MIN/1.73M2 > Or=60 Egfr >60 ML/MIN/1.73M2 > Or=60 Laboratory test 04/14/2009 [facility] Hemoglobin A1c 5.6 % <6.0 finding [phone] Lipid Panel 04/14/2009 [facility] Cholesterol 156 mg/dL 125-200 [phone] HDL Cholesterol 49 mg/dL > Or=46 Triglycerides 81 mg/dL <150 Cholesterol/HDL Ratio 3.2 < Or=5.0 LDL Chol,Calculated 91 mg/dL <130 27 TSH & T4,Free 04/14/2009 [facility] TSH,3RD Generation 0.51 mU/L 0.40-4.50 28 [phone] T4,Free 1.2 ng/dL 0.8-1.8 Vitamin D, 25 04/14/2009 [facility] Vitamin D,25-Oh,Total 22 ng/mL 20-100 Hydroxy [phone] Vitamin D,25-Oh,D3 22 ng/mL Vitamin D,25-Oh,D2 <4 [...] not be used for medication dosing. 11 [facility] [address] [place] [address] MISCELLANEOUS CYTOLOGY REPORT Patient Name:KELLI SZYMANSKI Patient :1970 Ordering Physician:TREMAYNE MENDEZ MD Accession Number: [id number] Source of Specimen(s): A: Urine, Voided Clinical [...] Electronically Signed Out By Pavan Underwood MD [facility] Nuclear Test Technician: Nidhi AGUIAR(ASCP) [facility] 12 SPECIMEN DESCRIPTION URINE, COLLECTION METHOD NOT SPECIFIED CULTURE RESULTS NO GROWTH REPORT STATUS FINAL 06/29/2016 13 Tested for Low Risk HPV Types 6,11,42,43,44. The analytical performance characteristics of this assay, when used to test Surepath(R) or vaginal specimens, have been determined by [facility]. Methodology: Hybrid Capture with Signal Amplification. Performed at [facility] [address] [place] [address] 14 Tested for High Risk HPV Types 16,18,31,33,35,39,45,51,52, 56,58,59,68. The analytical performance characteristics of this assay, when used to test Surepath(R) or vaginal specimens, have been determined by [facility]. Methodology: Hybrid Capture with Signal Amplification. Performed at [facility] [address] [place] [id number] 15 25-OHD3 indicates both endogenous production and [...] the PI*Z and PI*S alleles in the sscus-5-alhnhfkzshp (PI) gene (genotype PI*M/PI*M). This negative result does not rule out the presence of other mutations within the PI gene or other causes of hyeis-9-ghtqpvfhyic deficiency. Therefore, these results should be interpreted in the context of the individual's clinical presentation, and other laboratory tests such as measurement of serum wvwwe-7-uqrphmwdtki levels. Laboratory results and submitted clinical information reviewed by Merry Ng, Ph.D., [facility] Pyvda-4-snlcpwbucxi deficiency is a relatively common autosomal recessive condition. The two most common deficiency alleles in the mnfxt-2-drocaywaoyz gene (protease inhibitor locus, PI) are designated [...] smoke. It should be noted that serum qwvyi-6-khwqtfturjs levels can be induced by a wide variety of conditions that include , infection, numerous inflammatory conditions, cancer, and liver disease. Levels of xxlyw-3-sflbtnstxus may be reduced by other conditions. Therefore, immunological and functional determinations of serum lelje-1-qbnhvfksuqa levels may not correlate with the individual's PI genotype. The PI*Z, PI*S, and PI*M alleles are detected by multiplex polymerase chain reaction (PCR) amplification of specific regions of the PI gene, followed by restriction enzyme digestion and capillary electrophoresis. This assay does not test for the presence of other mutations within the evkib-9-fctokubryuf gene or non-genetic causes of ahvkq-6-ygbywajwfcb deficiency. Since genetic variation and other factors can affect the accuracy of direct mutation testing, these results should be interpreted in light of clinical and familial data. This test was developed and its performance characteristics have been determined by [facility]. Performance characteristics refer to the analytical performance of the test. 23 RESPIRATORY-THROAT 24 NORMAL OROPHARYNGEAL TRISHA. 25 TISSUE PATHOLOGY REPORT Tissue Pathology Report Status: FINAL Clinical Information and/or Impression: Rash DIAGNOSIS: A) Back : Acute suppurative folliculitis. See comment. 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 PATHOLOGIST: Pavan Arreaga MD, Board Certified in Dermatology and Dermatopathology (electronic signature) For questions regarding this report call Anatomic Pathology at [phone] GROSS DESCRIPTION: A) Specimen is received in formalin, labeled with the patient's name, but no source on the vial and consists of a 0.4 x 0.4 x 0.2 cm. fragment of singletary skin. The surgical margin is inked with blue ink. The specimen is bisected and totally submitted, two pieces in a single cassette. MaeveG:yasemin 05/10/09 Gross Exam(s) performed at: [facility], [address] [place] [address] Comfort Filler: CHRISTOPHER JIMENEZ MD 26 GLUCOSE REFERENCE RANGE [...] ng/mL. Procedures Date Code Description Status 10/22/2017 81766 Oximetry Single Determination Completed 07/03/2017 37481 Oximetry Single Determination Completed 07/03/2017 77660 Electrocardiogram Complete Completed 10/10/2016 82874 Oximetry Single Determination Completed 09/18/2016 90286310 Mammogram Completed 08/22/2016 54199 Oximetry Single Determination Completed 07/11/2016 59016 Oximetry Single Determination Completed 07/04/2016 25055 Oximetry Single Determination Completed 06/27/2016 91010 Electrocardiogram Complete Completed 05/06/2015 61088 Spirometry Completed 05/06/2015 31682 Electrocardiogram Complete Completed 03/14/2014 40460 Oximetry Single Determination Completed 02/06/2014 04973 Electrocardiogram Complete Completed 02/06/2014 93295 Oximetry Single Determination Completed 02/06/2014 11355 Spirometry Completed 07/21/2013 28861 Oximetry Single Determination Completed 02/18/2013 05873 Oximetry Single Determination Completed 10/17/2012 27986 Electrocardiogram Complete Completed 10/17/2012 74894 Pure Tone Hearing Test, Air Completed 10/17/2012 77999 Oximetry Single Determination Completed 10/17/2012 72061 Visual Screening Test Of Visual Acuity, Quantitative, Completed Bilateral 10/17/2012 59034 Spirometry Completed 11/23/2011 34610 Oximetry Single Determination Completed 08/22/2011 85587 Oximetry Single Determination Completed 08/08/2011 18487 Oximetry Single Determination Completed 07/26/2011 83231 Oximetry Single Determination Completed 05/04/2011 49319 Oximetry Single Determination Completed 04/04/2011 95769 Oximetry Single Determination Completed 04/04/2011 22738 Electrocardiogram Complete Completed 04/04/2011 82132 Electrocardiogram Complete Completed 02/28/2011 34613 Oximetry Single Determination Completed 11/22/2010 11096 Visual Field Exam Intermediate, Unilateral Or Completed Bilateral 10/28/2010 83155 Electrocardiogram Complete Completed 09/14/2010 47757 Oximetry Single Determination Completed 07/07/2010 51428 Injection Therapeutic Prophylactic Or Diagnostic Completed 06/30/2010 20993 Injection Therapeutic Prophylactic Or Diagnostic Completed 06/22/2010 09673 Injection Therapeutic Prophylactic Or Diagnostic Completed 06/16/2010 60951 Injection Therapeutic Prophylactic Or Diagnostic Completed 06/16/2010 67840 Oximetry Single Determination Completed 05/20/2010 755584186 Bone Mineral Density Test Completed 11/09/2009 41092 Injection Therapeutic Prophylactic Or Diagnostic Completed 11/09/2009 72170 Oximetry Single Determination Completed 11/09/2009 30022 Oximetry Single Determination Completed 07/20/2009 63729 Oximetry Single Determination Completed 07/20/2009 52311 Oximetry Single Determination Completed 05/07/2009 67260 Oximetry Single Determination Completed 05/07/2009 21836 Oximetry Single Determination Completed 05/07/2009 62453 Biopsy Skin Lesion Single Completed 04/22/2009 13631 Oximetry Single Determination Completed 04/22/2009 52377 Airway Inhalation Treatment Completed 04/19/2009 57753 Aerosol Or Vapor Inhalations Subsequent Completed 04/19/2009 30785 Airway Inhalation Treatment Completed 04/12/2009 43543 Spirometry Completed 07/29/2007 29183 Aerosol Or Vapor Inhalations Initial Completed 07/29/2007 48912 Airway Inhalation Treatment Completed 03/29/2007 96270 Destruction Of Flat Warts Or Molluscum Contagiosum, Completed Milia To 14 03/22/2007 88553 Aerosol Or Vapor Inhalations Initial Completed 03/22/2007 23237 Airway Inhalation Treatment Completed 03/22/2007 42997 Destruction Of Lesions 2-14 Completed 03/22/2007 05373 Destruction Of Lesion First Completed 09/03/2006 01089 Spirometry Completed 05/17/2006 78226 Aerosol Or Vapor Inhalations Initial Completed 05/17/2006 57678 Airway Inhalation Treatment Completed 03/15/2006 45475 Spirometry Completed 11/23/2005 65362 Spirometry Completed 11/23/2005 60198 Electrocardiogram Complete Completed 06/29/2005 79025 Bronchospasm Evaluation Completed 04/04/2004 77007 Aerosol Or Vapor Inhalations Initial Completed 04/04/2004 86988 Airway Inhalation Treatment Completed Encounters Type Date Location Provider Dx Diagnosis Office Visit 06/20/2018 Gustavo Mendez J03.90 Acute tonsillitis, 12:45p MD [place] unspecified Office Visit 05/01/2018 Tyler Mendez M25.561 Pain in right knee 11:15a MD [place] M51.36 Other intervertebral disc degeneration, lumbar region Office Visit 03/05/2018 8:45a [place] Echevarria MD J45.998 Other asthma I10 Essential (primary) hypertension K21.9 Gastro-esophageal reflux disease without esophagitis M25.561 Pain in right knee G47.33 Obstructive sleep apnea (adult) (pediatric) Office Visit 12/06/2017 9:00a [place] Echevarria I10 Essential (primary) hypertension R06.02 Shortness of breath J45.998 Other asthma K21.9 Gastro-esophageal reflux disease without esophagitis Z68.41 Body mass index (BMI) 40.0-44.9, adult Office Visit 11/15/2017 10:15a Tyler Mendez J45.41 Moderate persistent MD [place] asthma with (acute) exacerbation R06.02 Shortness of breath Office Visit 11/13/2017 2:15p Nelson Echevarria.41 Moderate persistent MD [place] asthma with (acute) exacerbation R06.02 Shortness of breath Office Visit 11/07/2017 3:15p Nelson Chin.41 Moderate MD [place] persistent asthma with (acute) exacerbation Office Visit 11/01/2017 8:30a García Echevarria0 Essential MD [place] (primary) hypertension J45.998 Other asthma Z68.41 Body mass index (BMI) 40.0-44.9, adult Office Visit 10/22/2017 10:45a Maeve Chin45.998 Other asthma MD [place] J22 Unspecified acute lower respiratory infection Z68.41 Body mass index (BMI) 40.0-44.9, adult Office Visit 07/03/2017 8:45a [place] Echevarria, Z00.00 Encntr for general MD adult medical exam w/o abnormal findings I10 Essential (primary) hypertension J45.20 Mild intermittent asthma, uncomplicated K21.9 Gastro-esophageal reflux disease without esophagitis Z68.39 Body mass index (BMI) 39.0-39.9, adult Office Visit 05/17/2017 9:00a Efren Aguilar PA I10 Essential ( primary) hypertension K21.9 Gastro-esophageal reflux disease without esophagitis R05 Cough Z68.39 Body mass index (BMI) 39.0-39.9, adult Office Visit 05/08/2017 2:45p Efren Aguilar PA I10 Essential ( primary) hypertension K21.9 Gastro-esophageal reflux disease without esophagitis R05 Cough J45.20 Mild intermittent asthma, uncomplicated E87.6 Hypokalemia Z68.39 Body mass index (BMI) 39.0-39.9, adult Office Visit 05/03/2017 10:00a [place] Echevarria, I10 Essential (primary) hypertension R05 Cough J45.998 Other asthma M79.644 Pain in right finger(s) Z68.39 Body mass index (BMI) 39.0-39.9, adult Office Visit 03/22/2017 10:15a [place] Echevarria, I10 Essential (primary) hypertension E87.6 Hypokalemia R05 Cough J45.998 Other asthma M79.644 Pain in right finger(s) Z68.39 Body mass index (BMI) 39.0-39.9, adult Office Visit 11/14/2016 10:00a [place] Echevarria, I10 Essential (primary) hypertension E87.6 Hypokalemia J45.998 Other asthma Z68.37 Body mass index (BMI) 37.0-37.9, adult Office Visit 10/10/2016 10:00a [place] Echevarria, I10 Essential (primary) hypertension E87.6 Hypokalemia J45.998 Other asthma Z68.37 Body mass index (BMI) 37.0-37.9, adult Office Visit 08/22/2016 11:15a [place] Echevarria, I10 Essential (primary) hypertension J45.998 Other asthma D72.828 Other elevated white blood cell count R05 Cough E87.6 Hypokalemia Office Visit 08/10/2016 1:15p Gustavo Mendez, R10.31 Right lower MD [place] quadrant pain E87.6 Hypokalemia I10 Essential (primary) hypertension Z68.38 Body mass index (BMI) 38.0-38.9, adult Office Visit 07/25/2016 11:00a [place] Echevarria MD J45.998 Other asthma R05 Cough I10 Essential (primary) hypertension D72.828 Other elevated white blood cell count R49.0 Dysphonia Z68.38 Body mass index (BMI) 38.0-38.9, adult Office Visit 07/11/2016 10:00a [place] Echevarria, I10 Essential (primary) hypertension J45.998 Other asthma R05 Cough R06.02 Shortness of breath Z68.38 Body mass index (BMI) 38.0-38.9, adult Office Visit 07/04/2016 3:30p [place] Echevarria MD J45.998 Other asthma R05 Cough I10 Essential (primary) hypertension Z68.38 Body mass index (BMI) 38.0-38.9, adult Office Visit 06/27/2016 10:00a [place] Echevarria, Z00.00 Encntr for general MD adult medical exam w/o abnormal findings I10 Essential (primary) hypertension E66.9 Obesity, unspecified J45.998 Other asthma R31.29 Other microscopic hematuria Z68.38 Body mass index (BMI) 38.0-38.9, adult Office Visit 08/05/2015 11:30a Yimi Weiner PA I10 Essential ( primary) hypertension R05 Cough D72.89 Other specified disorders of white blood cells K21.9 Gastro-esophageal reflux disease without esophagitis E66.9 Obesity, unspecified Z68.41 Body mass index (BMI) 40.0-44.9, adult Office Visit 05/06/2015 11:30a Yimi Weiner PA Z00.00 Encntr for general adult medical exam w/o abnormal findings R05 Cough I10 Essential (primary) hypertension K21.9 Gastro-esophageal reflux disease without esophagitis D72.89 Other specified disorders of white blood cells Office Visit 04/23/2015 10:45a Yimi Weiner PA R05 Cough I10 Essential (primary) hypertension Office Visit 12/01/2014 12:30p Yimi Weiner PA 786.2 Cough 401.1 Hypertension Benign 786.05 Shortness Of Breath Office Visit 10/12/2014 11:30a Yimi Weiner PA 786.2 Cough 401.1 Hypertension Benign 786.05 Shortness Of Breath Office Visit 09/07/2014 11:45a Yimi Weiner PA 401.1 Hypertension Benign 786.2 Cough Office Visit 08/17/2014 2:00p Yimi Weiner PA 401.1 Hypertension Benign 719.46 Pain Joint Lower Leg Office Visit 08/10/2014 4:45p Yimi Weiner PA 786.2 Cough 401.1 Hypertension Benign Office Visit 07/14/2014 3:15p Yimi Weiner PA 786.2 Cough 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 401.1 Hypertension Benign 493.90 Asthma Unspec W/O Status Asthmaticus Office Visit 06/16/2014 11:45a [place] Echevarria MD 786.2 Cough 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 401.1 Hypertension Benign Office Visit 04/14/2014 12:15p [place] Echevarria MD 786.2 Cough 110.5 Dermatophytosis Body 401.1 Hypertension Benign Office Visit 03/14/2014 12:00p Tyler Mendez 493.90 Asthma Unspec W/O MD [place] Status Asthmaticus 786.2 Cough 786.05 Shortness Of Breath 462 Pharyngitis Acute Office Visit 02/06/2014 2:45p Tyler Mendez V70.0 Examination General MD [place] Medical Routine AT [facility] 493.90 Asthma Unspec W/O Status Asthmaticus 786.2 Cough 786.05 Shortness Of Breath 401.1 Hypertension Benign Office Visit 07/21/2013 11:30a Sujata Rivas, SCIENTIFIC AIDE 493.90 Asthma Unspec W/O Status Asthmaticus 466.0 Bronchitis Acute 401.1 Hypertension Benign Office Visit 07/14/2013 1:30p Sujata Rivas, 466.0 Bronchitis Acute SCIENTIFIC AIDE Office Visit 06/19/2013 10:30a Herbert Mendez, 401.1 Hypertension Benign MD [place] V76.10 Screening For Malignant Neoplasm Breast Office Visit 02/18/2013 3:00p Tyler Mendez 493.90 Asthma Unspec W/O MD [place] Status Asthmaticus 401.1 Hypertension Benign Office Visit [...] 278.00 Obesity Unspec Office Visit 08/22/2011 4:45p [place] Echevarria MD 786.2 Cough 461.0 Sinusitis Acute Maxillary Office Visit 05/04/2011 2:00p Gustavo [facility] Liz 401.1 Hypertension Benign 278.00 Obesity Unspec 724.2 Lumbago Office Visit 10/28/2010 2:15p Cindy Echevarria MD 281.1 Vitamin B12 Deficiency Anemia Other 401.1 Hypertension Benign 780.52 Insomnia Unspecified V70.0 Examination General Medical Routine AT Health Care Facility 278.01 Obesity Morbid V76.12 Screening Mammogram Malig Paolo Other Office Visit 09/14/2010 1:45p Cindy Echevarria MD 729.2 Neuralgia Neuritis & Radiculitis Unspec 780.52 Insomnia Unspecified Office Visit 08/11/2010 11:45a Cindy Mcintyre, 401.1 Hypertension Benign 493.90 Asthma Unspec W/O Status Asthmaticus 782.0 Skin Sensation Disturbance 723.1 Cervicalgia Office Visit 06/30/2010 10:45a Cindy Mcintyre 401.1 Hypertension Benign 493.90 Asthma Unspec W/O Status Asthmaticus 704.9 Hair & Hair Follicle Diseases Unspec 281.1 Vitamin B12 Deficiency Anemia Other 530.81 Esophageal Reflux Office Visit 06/16/2010 12:45p Cindy Mcintyre 401.1 Hypertension Benign 493.90 Asthma Unspec W/O Status Asthmaticus 704.9 Hair & Hair Follicle Diseases Unspec 281.1 Vitamin B12 Deficiency Anemia Other 530.81 Esophageal Reflux 786.2 Cough Office Visit 04/21/2010 9:30a Cindy Mcintyre 401.1 Hypertension Benign 338.29 Other Chronic Pain E930.9 Antibiotic Unspec Adverse Effects Office Visit 11/09/2009 4:30p Glen Morgan, 493.90 Asthma Unspec W/O PA Status Asthmaticus 724.2 Lumbago 401.1 Hypertension Benign Office Visit 07/20/2009 5:50p Yolanda Ayon, 493.90 Asthma Unspec W/O PA Status Asthmaticus 786.2 Cough 401.1 Hypertension Benign [...] 782.8 Skin Texture Changes Office Visit 05/07/2009 2:40p Glen Nelson, 493.90 Asthma Unspec W/O PA Status Asthmaticus 462 Pharyngitis Acute 782.8 Skin [...] To Spec Agents Other Office Visit 01/22/2009 10:45a [place] Echevarria, 729.4 Fasciitis Unspec 401.1 Hypertension Benign Office Visit 09/14/2008 [...] & Respiratory Abnormalities Other Office Visit 05/15/2008 5:45p Maggie Krishna MD 461.8 Sinusitis Acute Other 462 Pharyngitis Acute 388.70 Otalgia & [...] 1:30 pm - [place] Mendez MD at [facility]1506/20/2018 - [place] Mendez MDJ03.90 Acute tonsillitis, unspecifiedNew Medication:Doxycycline Hyclate 100 mg - 1 by mouth twice a dayComments:Treat with antibiotics
[2018-07-16] MEDS ORDERED: predniSONE TAB* 20 MG PO ONE (18:47)
[2018-07-16] MEDS ORDERED: Albuterol/Ipratropium NEB.SOL* Albuterol 2.5 MG/Ipratropium 0.5 MG 3 ML INH ONE (18:47)
--- NOTE | 2018-07-16 18:53 | UC ---
General HPI - HPI Summary HPI Summary: 3 WEEKS OF NON RESOLVING COUGH, CONGESTION AND SOB PLUS HX ASTHMA. BEGAN WITH A THROAT ISSUE THAT MOVED TO HER LUNGS. PCP TX WITH DOXYCYCLINE, NEBULIZER, INHALERS AND WEANING PO STEROID (LD) TOMORROW. THROAT ISSUE IMPROVED. - History of Current Complaint Chief Complaint: UCGeneralIllness Stated Complaint: TROUBLE BREATHING,COUGH (HAS ASTHMA) Time Seen by Provider: 07/16/18 18:42 Hx Obtained From: Patient Hx Last Menstrual Period: 07/08/18 Pain Intensity: 0 Associated Signs & Symptoms: Negative: Chest Pain, Fever - Allergy/Home Medications Allergies/Adverse Reactions: Allergies Allergy/AdvReac Type Severity Reaction Status Date / Time captopril Allergy Severe Difficulty Verified 07/16/18 18:30 Breathing codeine Allergy Severe Swelling Verified 07/16/18 18:30 enalapril Allergy Severe Difficulty Verified 07/16/18 18:30 Breathing melatonin Allergy Severe Swelling Verified 07/16/18 18:30 Sulfa (Sulfonamide Allergy Severe Swelling Verified 07/16/18 18:30 Antibiotics) pantoprazole Allergy Intermediate Rash Verified 07/16/18 18:30 Penicillins Allergy Unknown both Verified 07/16/18 18:30 parents allergic Macrolide Antibiotics Allergy Difficulty Verified 07/16/18 18:30 Breathing erythromycin base AdvReac GI Upset Verified 07/16/18 18:30 macrolides and ketolides Allergy Severe Difficulty Uncoded 07/16/18 18:30 Breathing Home Medications: Home Medications Budesonide NEB* [Pulmicort NEB*] 0.5 mg INH BID 07/16/18 [History Confirmed 05/22] Cetirizine* [ZyrTEC 10 MG TAB*] 10 mg PO SEE INSTRUCTIONS 07/16/18 [History Confirmed 07/16/18] Gabapentin CAP(*) [Neurontin 300 CAP(*)] 900 mg PO BID 07/16/18 [History Confirmed 07/16/18] PMH/Surg Hx/FS Hx/Imm Hx Cardiovascular History: Hypertension Respiratory History: Asthma Other History Of: Negative For: HIV, Hepatitis B, Hepatitis C, Anticoagulant Therapy - Surgical History Surgical History: Yes Surgery Procedure, Year, and Place: ORAL SURGERY. dermoid cyst 2017 - Family History Known Family History: Positive: None, Cardiac Disease, Hypertension Negative: Diabetes - Social History Alcohol Use: Rare Substance Use Type: None Smoking Status (MU): Never Smoked Tobacco - Immunization History Most Recent Influenza Vaccination: Not the Season Most Recent Tetanus Shot: UNKNOWN Review of Systems All Other Systems Reviewed And Are Negative: Yes Constitutional: Positive: Negative Skin: Positive: Negative Eyes: Positive: Negative ENT: Positive: Negative Respiratory: Positive: Shortness Of Breath, Cough Cardiovascular: Positive: Negative Gastrointestinal: Positive: Negative Genitourinary: Positive: Negative Motor: Positive: Negative Neurovascular: Positive: Negative Musculoskeletal: Positive: Negative Neurological: Positive: Negative Psychological: Positive: Negative Physical Exam Triage Information Reviewed: Yes Appearance: Well-Appearing Vital Signs: Initial Vital Signs Temp 97.8 F 07/16/18 18:14 Pulse 104 07/16/18 18:14 Resp 19 07/16/18 18:14 BP 161/92 07/16/18 18:14 Pulse Ox 94 07/16/18 18:14 Vital Signs Reviewed: Yes Eyes: Positive: Conjunctiva Clear ENT: Positive: Pharynx normal, TMs normal. Negative: Nasal congestion Neck: Positive: Supple, Nontender, No Lymphadenopathy Respiratory: Positive: Lungs clear, No respiratory distress, Decreased breath sounds, Wheezing - SLIGHT, Other: - FREQUENT NPC Cardiovascular: Positive: RRR, No Murmur Abdomen Description: Positive: Nontender, No Organomegaly, Soft Bowel Sounds: Positive: Present Musculoskeletal: Positive: ROM Intact Neurological: Positive: Alert Psychological: Positive: Age Appropriate Behavior Skin Exam: Normal Diagnostics - Radiology No standard instances Radiology Interpretation Completed By: ED Physician - WET READ=NAD Re-Evaluation - Re-Evaluation First Eval Re-Evaluation Time: 19:19 Change: Improved - BETTER AERATION WITH NO FOCAL FINDINGS Course/Dx - Course Course Of Treatment: HX HTN. PT ATTRIBUTES HER CURRENT BP TO ILLNESS, STEROIDS AND NEB TX'S. HAS F/U WITH PCP SCHEDULED IN 3 DAYS AND WILL HAVE A RECHECK THEN. BP AND SATURATION DID IMPROVE POST TX HERE. - Differential Dx - Multi-Symptom Differential Diagnoses: Other - BRONCHITIS, ASTHMA, PNEUMONIA. NO CONCERN FOR PE. - Diagnoses Provider Diagnosis: Asthma flare Discharge - Sign-Out/Discharge Documenting (check all that apply): Patient Departure All imaging exams completed and their final reports reviewed: No - Discharge Plan Condition: Stable Disposition: HOME Prescriptions: predniSONE [Prednisone 20 MG TAB] 40 mg PO DAILY 5 Days #10 tablet Patient Education Materials: Asthma (DC) Referrals: Juarez Israel MD [Primary Care Provider] - 3 Days Additional Instructions: continue the steroid and rescue inhaler routinely. go to ER for any worsening. - Billing Disposition and Condition Condition: STABLE Disposition: Home
[2018-07-16 19:35] VITALS: BP 155/93
--- NOTE | 2018-07-17 22:04 | UC ---
- Progress Note Progress Note: Radiologist reading of CXR from 07/16/18 NAD, which is the same as the provider from the same date. Re-Evaluation - Re-Evaluation First Eval Re-Evaluation Time: 19:19 Change: Improved - BETTER AERATION WITH NO FOCAL FINDINGS Course/Dx - Diagnoses Provider Diagnoses: Asthma flare Discharge - Sign-Out/Discharge Documenting (check all that apply): Patient Departure All imaging exams completed and their final reports reviewed: Yes - Discharge Plan Condition: Stable Disposition: HOME Prescriptions: predniSONE [Prednisone 20 MG TAB] 40 mg PO DAILY 5 Days #10 tablet Patient Education Materials: Asthma (DC) Referrals: Jhonatan OSPINA,Juarez [Primary Care Provider] - 3 Days Additional Instructions: continue the steroid and rescue inhaler routinely. go to ER for any worsening. - Billing Disposition and Condition Condition: STABLE Disposition: Home
== END 2018-07-16 19:40 | disposition home or self-care (01) ==
LOC: UCCORT 18:09
DX: J45.909 Unspecified asthma, uncomplicated (principal); I10 Essential (primary) hypertension; Z88.8 Allergy status to other drugs, medicaments and biological substances; Z88.5 Allergy status to narcotic agent; Z88.2 Allergy status to sulfonamides; Z88.0 Allergy status to penicillin; Z88.1 Allergy status to other antibiotic agents
CPT/HCPCS: 71046; 99212; A9270-GY; G0463; J7512

== ENCOUNTER 2018-09-21 19:55 | Emergency (ER) | payer BC ==
[2018-09-21 20:04] VITALS: BP 172/96
--- NOTE | 2018-09-21 20:24 | UC ---
Asthma HPI - HPI Summary HPI Summary: Patient presents to urgent care with ongoing history of asthma and difficulty with her lungs. Patient is seen by primary care provider, a local trench digger helper , and is scheduled to see a economic specialist in [place] in November. Patient states she has a history of recently diagnosed sleep apnea, but CPAP machine did not work well for her so she stopped using it after 3-4 nights. Patient states she has prescription for prednisone 10 mg tablets that she starts when she is instructed to by a doctor. Pt has not taken in 2-3 months. Patient also states she has inhalers as well as a nebulizer machine. Patient states she is here tonight because she feels like her asthma is getting worse and she's had difficulty with exhalation. Patient states she does have a cough is been chronic for about 2 years. It is non productive. Patient without any fevers or chills. Patient denies nausea vomiting. Patient has not used her nebulizer over 24 hours. She has not been consistently using her inhalers. Patient did not call her primary her trench digger helper. [facility] because she wasn't sure what else she should do. She intermittently takes Zyrtec for allergies 2-3 times a week. Patient denies any sinus congestion or postnasal drip. Patient denies ear pain. Patient's medications reviewed this visit. - History of Current Complaint Chief Complaint: UCRespiratory Stated Complaint: TROUBLE BREATHING Time Seen by Provider: 09/21/18 20:13 Hx Obtained From: Patient, Medical Records Hx Last Menstrual Period: 07/31/16 Pain Intensity: 0 - Allergy/Home Medications Allergies/Adverse Reactions: Allergies Allergy/AdvReac Type Severity Reaction Status Date / Time captopril Allergy Severe Difficulty Verified 09/21/18 20:05 Breathing codeine Allergy Severe Swelling Verified 09/21/18 20:05 enalapril Allergy Severe Difficulty Verified 09/21/18 20:05 Breathing melatonin Allergy Severe Swelling Verified 09/21/18 20:05 Sulfa (Sulfonamide Allergy Severe Swelling Verified 09/21/18 20:05 Antibiotics) pantoprazole Allergy Intermediate Rash Verified 09/21/18 20:05 Penicillins Allergy Unknown both Verified 09/21/18 20:05 parents allergic Macrolide Antibiotics Allergy Difficulty Verified 09/21/18 20:05 Breathing erythromycin base AdvReac GI Upset Verified 09/21/18 20:05 macrolides and ketolides Allergy Severe Difficulty Uncoded 09/21/18 20:05 Breathing PMH/Surg Hx/FS Hx/Imm Hx Cardiovascular History: Hypertension Respiratory History: Asthma Other History Of: Negative For: HIV, Hepatitis B, Hepatitis C, Anticoagulant Therapy - Surgical History Surgical History: Yes Surgery Procedure, Year, and Place: ORAL SURGERY - Family History Known Family History: Positive: None, Cardiac Disease, Hypertension, Non- Contributory Negative: Diabetes - Social History Occupation: Employed Full-time Lives: With Family Alcohol Use: None Substance Use Type: None Smoking Status (MU): Never Smoked Tobacco - Immunization History Most Recent Influenza Vaccination: Not the Season Most Recent Tetanus Shot: UNKNOWN Review of Systems All Other Systems Reviewed And Are Negative: Yes Constitutional: Positive: Negative Skin: Positive: Negative Eyes: Positive: Negative ENT: Positive: Sinus Congestion - mild Respiratory: Positive: Cough. Negative: Shortness Of Breath Cardiovascular: Positive: Negative Gastrointestinal: Positive: Negative Genitourinary: Positive: Negative Is Patient Immunocompromised?: No Physical Exam - Summary Physical Exam Summary: Vital Signs Reviewed: Yes A+Ox3, no distress Eyes: Conjunctiva Clear, PERI. EOM intact and full ENT: Hearing grossly normal TM x 2 clear, turbinates mild inflammed, mmoist, uvula midline, no exudate, no erythema Neck: Positive: Supple Respiratory: Positive: No respiratory distress, No accessory muscle use, intermittent dry cough, pt with slight end exp wheeze, speaking full easy sentences Cardiovascular: RRR nl s1, s2 no m/r CBT <2 sec abd soft + BS nt/nd no guarding, no distension Musculoskeletal Exam: MAXWELL x 4 without difficulty Strength Intact, ROM Intact Neurological: Positive: Alert, + sensation throughout Psychological: Positive: Normal Response To Family Skin: Positive: no rash, no ecchymosis Triage Information Reviewed: Yes Vital Signs: Initial Vital Signs Temp 97.7 F 09/21/18 20:02 Pulse 85 09/21/18 20:02 Resp 14 09/21/18 20:02 BP 172/96 09/21/18 20:02 Pulse Ox 99 09/21/18 20:02 Re-Evaluation - Re-Evaluation First Eval Change: Improved - Pt improved - states feels better wheeze resolved will continue to reassess Second Eval Change: Improved - Pt states cfoughing better will discharge pt has nebulizer meds and pred tabs at home strict return precautions Asthma Course/Dx - Course Course Of Treatment: Patient presents to urgent care with progressive shortness of breath particularly with exhalation. Patient has an ongoing diagnosis of asthma for which she has seen multiple specialists and is scheduled to see another specialist in November. Patient states she feels like this is been getting worse over the last 4-5 days. Patient did not call her specialist or primary. Patient has a nebulizer at home that she has not been using an over 24 hours. Patient was recently diagnosed with CPAP but has not been using machine come to work well for her. Patient states tonight she got concerned about a low direction so she came here. Patient does have a dry cough that she's had for over 2 years and has not changed. Patient has a habit does have a history of allergies for which she takes Zyrtec approximately twice a week. Patient denies any new chemical or workplace exposures. Vital signs reveal elevated blood pressure which patient has a dx of. Aatient with a dry intermittent cough. Patient with slight turbinate bogginess and end expiratory wheezing with speaking easy comfortable sentences. Discussed with patient options available at urgent care. We'll give a DuoNeb and we'll give IM slight Medrol reassess. If patient improved and feels okay we'll send home. Patient has nebulizers as well as prednisone at home and instructed on use. The patient does not feel any better may directly MRSA department for further evaluation. Patient states understanding agreement and comfortable with plan. Will reassess after treatments. We'll not check chest x-ray as patient lungs relatively clear with stable vital signs and nonproductive cough with no fever. - Differential Dx/Diagnosis Provider Diagnosis: Shortness of breath Discharge - Sign-Out/Discharge Documenting (check all that apply): Patient Departure All imaging exams completed and their final reports reviewed: No Studies - Discharge Plan Condition: Stable Disposition: HOME Patient Education Materials: Asthma (ED) Referrals: Juarez Israel MD [Primary Care Provider] - Additional Instructions: - Use your nebulizer every 4 hours tomorrow and Sunday, then as needed - Take your inhalers as prescribed - Take prednisone as follows: 40mg daily x 3 days, 20mg daily x 3 days, 10 mg daily x 4 days - Take your allergy medication (zyrtec) daily -contact your primary or trench digger helper on Sunday to review this plan and your symptoms If you have increased difficulty breathing, fevers, chest pain or any other concerns it is recommended you go to the emergency department for further evaluation and treatment - Billing Disposition and Condition Condition: STABLE Disposition: Home
[2018-09-21] MEDS ORDERED: methylPREDNISolone 125 MG* 2 ML VIAL IM ONE (20:32)
[2018-09-21] MEDS ORDERED: Albuterol/Ipratropium NEB.SOL* Albuterol 2.5 MG/Ipratropium 0.5 MG 3 ML INH ONE (20:33)
== END 2018-09-21 21:36 | disposition home or self-care (01) ==
LOC: UCCORT 19:55
DX: R06.02 Shortness of breath (principal); I10 Essential (primary) hypertension; J45.909 Unspecified asthma, uncomplicated; Z88.1 Allergy status to other antibiotic agents; Z88.5 Allergy status to narcotic agent; Z88.0 Allergy status to penicillin; Z88.2 Allergy status to sulfonamides; Z88.8 Allergy status to other drugs, medicaments and biological substances
CPT/HCPCS: 96372; 99212; A9270-GY; G0463; J2930

== ENCOUNTER 2018-12-01 19:23 | Emergency (ER) | payer BC ==
[2018-12-01] MEDS ORDERED: Dexamethasone TAB* 4 MG PO ONE (19:27)
[2018-12-01 19:28] VITALS: BP 176/97
[2018-12-01] MEDS ORDERED: diPHENhydraMINE PO* 25 MG PO ONE (19:29)
--- NOTE | 2018-12-01 19:33 | UC ---
Allergic Reaction HPI - HPI Summary HPI Summary: possible allergic reaction to Doxazosin 4mg, day 5 of taking meds, took last one last night, complaints of swollen feet, hands, eyes swollen. - History of Current Complaint Chief Complaint: UCAllergicReaction Stated Complaint: POSS ALLERGIC REACTION Hx Obtained From: Patient Hx Last Menstrual Period: 07/31/16 ?: No Onset/Duration: Sudden Onset, Lasting Hours Severity Initially: Mild Severity Currently: Mild Pain Intensity: 0 Character: Swelling - Allergies/Home Medications Allergies/Adverse Reactions: Allergies Allergy/AdvReac Type Severity Reaction Status Date / Time captopril Allergy Severe Difficulty Verified 12/01/18 19:28 Breathing codeine Allergy Severe Swelling Verified 12/01/18 19:28 enalapril Allergy Severe Difficulty Verified 12/01/18 19:28 Breathing melatonin Allergy Severe Swelling Verified 12/01/18 19:28 Sulfa (Sulfonamide Allergy Severe Swelling Verified 12/01/18 19:28 Antibiotics) pantoprazole Allergy Intermediate Rash Verified 12/01/18 19:28 Penicillins Allergy Unknown both Verified 12/01/18 19:28 parents allergic Macrolide Antibiotics Allergy Difficulty Verified 12/01/18 19:28 Breathing erythromycin base AdvReac GI Upset Verified 12/01/18 19:28 macrolides and ketolides Allergy Severe Difficulty Uncoded 12/01/18 19:28 Breathing Home Medications: Home Medications Doxazosin TAB* [Cardura TAB*] 2 mg PO BEDTIME 12/01/18 [History Confirmed ] PMH/Surg Hx/FS Hx/Imm Hx Previously Healthy: Yes Other History Of: Negative For: HIV, Hepatitis B, Hepatitis C, Anticoagulant Therapy - Surgical History Surgical History: Yes Surgery Procedure, Year, and Place: ORAL SURGERY - Family History Known Family History: Positive: None, Cardiac Disease, Hypertension, Non- Contributory Negative: Diabetes - Social History Alcohol Use: None Substance Use Type: None Smoking Status (MU): Never Smoked Tobacco - Immunization History Most Recent Influenza Vaccination: Not the Season Most Recent Tetanus Shot: UNKNOWN Review of Systems All Other Systems Reviewed And Are Negative: Yes Respiratory: Positive: Cough Musculoskeletal: Positive: Edema - of hands feet and eyes Physical Exam Triage Information Reviewed: Yes Appearance: Well-Appearing, Pain Distress, Obese Vital Signs: Initial Vital Signs Temp 96.7 F 12/01/18 19:25 Pulse 84 12/01/18 19:25 Resp 17 12/01/18 19:25 BP 176/97 12/01/18 19:25 Pulse Ox 100 12/01/18 19:25 Vital Signs Reviewed: Yes Eye Exam: Normal ENT: Positive: Pharyngeal erythema Dental Exam: Normal Neck exam: Normal Respiratory Exam: Normal Respiratory: Positive: Chest non-tender, Lungs clear, Normal breath sounds Cardiovascular Exam: Normal Cardiovascular: Positive: RRR, No Murmur, Pulses Normal Abdominal Exam: Normal Abdomen Description: Positive: Nontender, No Organomegaly, Soft Musculoskeletal Exam: Normal Neurological Exam: Normal Psychological Exam: Normal Skin: Positive: Other - mild swelling of hands and feet, states she feels like her eyes are swelling, but it is not visible Re-Evaluation - Re-Evaluation First Eval Change: Improved - patient swelling is decreasing, no SOB Allergic Reaction Course/Dx - Course Course Of Treatment: hx obtained, exam performed, meds reviewed, steroids and benadryl given - Differential Dx/Diagnosis Provider Diagnosis: Allergic reaction caused by a drug Discharge - Sign-Out/Discharge Documenting (check all that apply): Patient Departure All imaging exams completed and their final reports reviewed: No Studies - Discharge Plan Condition: Stable Disposition: HOME Patient Education Materials: General Allergic Reaction (ED) Referrals: Jhonatan OSPINA,Juarez [Primary Care Provider] - Additional Instructions: 1. follow up with your provider in the morning in regard to your mediation 2. If swelling or any other signs of allergic reaction re emerge follow up in the ER. - Billing Disposition and Condition Condition: STABLE Disposition: Home
--- OUTSIDE RECORDS SUMMARY | 2018-12-01 19:45 | XMS REPORT | Continuity of Care Document ---
:1970 External Reference #:[id number] Author Name Tremayne Mendez MD Address [address] [place] [address] Care Team Providers Name Role Phone Yimi Castrejon PA Primary Care Physician Unavailable Payers Date Identification Numbers Payment Provider Subscriber Effective: 2014 Policy Number: [id number] [facility] Kelli Szymanski Group Name: [id number] [address] [address] PayID: [id number] [place] [address] Problems Active Problems Provider Date Low back pain Tremayne Mendez MD Onset: 01/22/2009 Sciatica Tremayne Mendez MD Onset: 01/22/2009 Plantar fascial fibromatosis Tremayne Mendez MD Onset: 01/22/2009 Asthma without status asthmaticus Tremayne Mendez MD Onset: 01/22/2009 Insomnia Tremayne Mendez MD Onset: 01/22/2009 Cobalamin deficiency Cindy Mendez MD Onset: 06/16/2010 Essential hypertension Yimi Castrejon PA Onset: 04/23/2015 Family History Date Family Member(s) Observation Comments Father due to Heart Attack () Father due to Hypertension () Mother Hypertension Mother Osteoporosis Mother Cataracts Number of Children None Number of Siblings Siblings: 3 First Brother Hypertension First Brother Asthma First Sister Alive And Well Second Sister Alive And Well Social History Type Date Description Comments Sex Unknown Marital Status Single Lives With Roommate 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 Dominance Left-handed Advance Directive 02/06/2014 Negative For Health Care Form given [employer]obb[employer] Sports [employer]obb[employer] Music ETOH Use Rarely consumes alcohol Recreational Drug Use Denies Drug Use Tobacco Use Reviewed: 03/03/15 Patient has never smoked Smoking Status Reviewed: 11/26/18 Patient has never smoked Exercise Type/Frequency Does not exercise Seat Belt/Car Seat always uses seat belt Allergies, Adverse Reactions, Alerts Active Allergies Reaction Severity Comments Date Amoxicillin 03/05/2008 Codeine 03/05/2008 Erythromycin 04/10/2008 Protonix 03/05/2008 Codeine Sulfate burning rash 01/22/2009 Macrolides 04/12/2009 Bactrim swelling 06/14/2009 Ketolides chest tight, sob 06/30/2009 Sulfa swelling 06/30/2009 Penicillin sob 06/30/2009 Enalapril cough 07/20/2009 Dillon Inhibitors cough 07/20/2009 Melatonin facial swelling 03/27/2011 Phentermine felt funny 07/26/2011 Esomeprazole Headache and Blurred vision 09/07/2014 Medications Active Medications SIG Qnty Indications Ordering Date Provider Doxazosin Mesylate 1 by mouth every 30tabs I10 Ojugbeledison, 11/26/2018 day MD Tremayne 4mg Tablets Nexium 1 by mouth every 30caps K21.9 Ojugbeli, 11/26/2018 40mg day MD Tremayne Capsules DR Budesonide Use 0.25 ML Via 180units J45.998 Ojugbel, 07/09/2018 Nebulizer Twice MD Tremayne 0.25mg/2ML Daily as Needed Suspension Spacer Chamber For use with the 1units J45.901 Jhonatan, 10/10/2016 Inhaler Ventolin Dx erinn.998 MD Tremayne Albuterol Sulfate Use 1 Vial Via 150units J45.901 Ojugbeledison, 06/27/2016 Nebulizer Every 4 MD Tremayne (2.5mg/3ML) 0.083% Hours as Needed For Nebulizer Bronchospasm Nebulizer Dx: j45.998 1units K21.9 Ojugobed, 07/16/2014 Device MD Tremayne Ventolin HFA 2 puffs as needed 1units J45.20 Ojugbeledison, 07/14/2013 for sob MD Tremayne 108(90Base) mcg/Act Aerosol Epipen 2-Yrn use as directed 3units Robynjugobed, MD Tremayne 0.3mg/0.3ML Solution Auto-Inject Zyrtec Allergy 1 by mouth every Unknown 10mg day as needed Tablets History Medications Doxazosin Mesylate Take 2 Tablet By 30tabs I10 Jhonatan, 11/04/2018 - 1mg Mouth Every MD Tremayne 11/26/2018 Tablets Night AT Bedtime Dilt-XR Take 1 Capsule 90caps I10 Jhonatan, 10/02/2018 - 240mg Caps ER 24HR By Mouth Every MD Tremayne 10/18/2018 Day Benzonatate take one three 30caps R05 Jhonatan, 09/24/2018 - 200mg Capsules times a day MD Tremayne 11/02/2018 Hydrocodone take 1tsp by 110ml R05 Jhonatan, 07/19/2018 - Polistirex/Chlorpheniram mouth twice a MD Tremayne 11/02/2018 ine Polistirex day as needed 10-8mg/5ML for cough Suer Hydrochlorothiazide Take 1 Capsule 90caps I10 Jhonatan, 07/19/2018 - 12.5mg By Mouth Every MD Tremayne 07/29/2018 Capsules Day Prednisone 4 po qd x3days, 30tabs J45.901 Jhonatan, 07/05/2018 - 10mg Tablets then 3 po qd MD Tremayne 07/18/2018 x3days, then 2 po qd x3 days, then 1 po qd x 3days. Doxycycline Hyclate 1 by mouth twice 14tabs J03.90 Jhonatan, 06/20/2018 - 100mg a day MD Tremayne 07/04/2018 Tablets Buspirone HCL 1 by mouth twice 60tabs Jhonatan, 12/06/2017 - 10mg Tablets a day MD Tremayne 03/04/2018 Alprazolam 1 by mouth 30tabs Jhonatan, 11/13/2017 - 0.25mg Tablets tid/prn MD Tremayne 12/05/2017 Prednisone 1 tab by mouth 14tabs Jhonatan, 11/07/2017 - 20mg Tablets twice a day MD Tremayne 12/05/2017 Doxycycline Hyclate 1 by mouth twice 14tabs J22 Jhonatan, 10/22/2017 - 100mg a day MD Tremayne 10/31/2017 Tablets Benzonatate take one three 30caps J22 Jhonatan, 10/22/2017 - 200mg Capsules times a day MD Tremayne 11/09/2017 Aspirin Enteric Coated 1 by mouth every 30tabs I10 Jhonatan, 05/17/2017 - Adult Low Strength day MD Tremayne 06/04/2017 81mg Tablets Lansoprazole 1 by mouth every 30caps K21.9 Jhonatan, 05/08/2017 - 30mg Capsules DR kacie Moss MD 10/08/2017 Valsartan 1 by mouth every 30tabs I10 Jhonatan, 05/08/2017 - 160mg Tablets day MD Tremayne 06/11/2017 Vfdeokoy-KCV-9 1 patch weekly 4units I10 Jhonatan, 03/22/2017 - 0.1mg/24HR MD Tremayne 05/03/2017 Patches Weekly Potassium Chloride ER 1 every day 31tabs Jhonatan, 08/10/2016 - 20Meq MD Tremayne 11/14/2016 Tablets ER Chlorthalidone 1 by mouth every 30tabs I10 Jhonatan, 07/25/2016 - 50mg Tablets day MD Tremayne 10/10/2016 Cmbsbdjl-JNW-0 1 patch weekly 4units I10 Jhonatan, 07/25/2016 - 0.1mg/24HR MD Tremayne 10/09/2016 Patches Weekly Diltiazem HCL ER 1 by mouth every 90caps I10 Jhonatan, 07/25/2016 - 240mg Caps day MD Tremayne 10/02/2018 ER 24HR Asmanex Twisthaler 120 use 2 puffs two 1units J45.901 Jhonatan, 2016 - Metered Doses times a day MD Tremayne 08/07/2016 220mcg/Inh Aerosol Budesonide 2ml va neb 60ml J45.Kendall Mendez, 07/11/2016 - 0.5mg/2ML bid/prn MD Tremayne 07/11/2016 Suspension Pulmicort Flexhaler 1 puff twice a 1units Maeve45.Kendall Mendez, 07/10/2016 - day MD Tremayne 07/10/2016 180mcg/Act Aerosol Breo Ellipta 1 inhalation 60units Maeve45.901 Jhonatan, 07/10/2016 - 200-25mcg/Inh every day MD Tremayne 07/10/2016 Aerosol Budesonide 2ml va neb 60ml J45.90Billy Mendez, 07/04/2016 - 0.5mg/2ML bid/prn MD Tremayne 07/10/2016 Suspension Prednisone 2 tabs by mouth 21tabs J45.901 Jhonatan, 07/04/2016 - 10mg Tablets daily for 1 week MD Tremayne 07/24/2016 then 1 tab daily for 1 week Benzonatate take one every 4 50caps J45.901 Jhonatan, 07/04/2016 - 200mg Capsules hours as needed MD Tremayne 08/10/2016 Montelukast Sodium 1 by mouth every 30tabs J45.901 Jhonatan, 06/27/2016 - 10mg day MD Tremayne 08/10/2016 Tablets Chlorthalidone 1 by mouth every 90tabs I10 Jhonatan, 06/27/2016 - 25mg Tablets day MD Tremayne 07/25/2016 Dckbsbdu-GSB-5 Apply one patch 4units I10 Jhonatan, 06/27/2016 - 0.2mg/24HR qweekly MD Tremayne 07/25/2016 Patches Weekly Amlodipine Besylate 1 by mouth every 90tabs I10 Jhonatan, 05/06/2015 - 10mg day MD Tremayne 07/25/2016 Tablets Doxycycline Hyclate Take 1 tablet by 20tabs J45.901 Zoey, 04/23/2015 - 100mg mouth 2 times MD Catie 05/06/2015 Tablets per day for 10 days for infection Diflucan one tablet once 1tabs J45.901 Zoey, 04/23/2015 - 150mg Tablets by mouth x 1 MD Catie 05/06/2015 Tussionex Pennkinetic take 5 150ml 786.2 Zoey, 08/10/2014 - Extended Release milliliters by MD Catie 10/09/2014 10-8mg/5ML mouth every 12 Liquid ER hours as needed for cough Portable Nebulizer With 1units 493.90 Zoey, 07/14/2014 - Battery MD Catie 05/06/2015 Tussionex Pennkinetic Take 5 ml by 473ml 786.2 Zoey, 07/14/2014 - Extended Release mouth every 12 MD Catie 08/09/2014 10-8mg/5ML hours as needed Liquid ER for cough Benzonatate 1 by mouth 100caps 786.2 Jhonatan, 04/14/2014 - 200mg Capsules qid/prn MD Tremayne 07/13/2014 Clotrimazole/Betamethaso apply every day 60gm 110.5 Jhonatan, 04/14/2014 - ne Dipropionate MD Tremayne 06/16/2014 1-0.05% Cream Cipro 1 po bid 14tabs 462 Jhonatan, 03/14/2014 - 500mg Tablets MD Tremayne 04/13/2014 Irbesartan 1 po qd 30tabs 401.1 Jhonatan, 02/06/2014 - 75mg Tablets MD Tremayne 06/16/2014 Cipro one tab po bid 14tabs 466.0 Sujata Escoto, 07/14/2013 - 250mg Tablets for 7 days MOLDING LINE ASSISTANT 02/04/2014 Diflucan 1 po qd 2tabs 466.0 Sujata Escoto, 07/14/2013 - 150mg Tablets MOLDING LINE ASSISTANT 02/04/2014 Prednisone 4 tabs for 3 30tabs 466.0 Sujata Escoto, 07/14/2013 - 10mg Tablets days, 3 tabs for MOLDING LINE ASSISTANT 02/06/2014 3 days, 2 tabs for 3 days, and 1 tab for 3 days Albuterol Sulfate one via neb 1box J45.40 Zoey, 07/07/2013 - 0.63mg/3ML every 4-6 hours MD Catie 06/27/2016 Nebulizer as needed for sob/coughing. J45.901 Vitamin D one po q week 15caps 268.9 Robynjugobed, 11/30/2011 - 89209Ngwx MD Cindy 07/18/2012 Capsules Omeprazole 1 po qd 90caps 530.81 Robynjugobed, 11/29/2011 - 40mg MD Cindy 07/18/[address] SANTOS Please Place 401.1 Jhonatan, 11/23/2011 - MD Cindy 02/17/2013 Prednisone 1 po bid 10tabs Jhonatan, 09/01/2011 - 20mg MD Tremayne 09/04/2011 Tablets Diflucan 1 po qd 2tabs Robynjugobed, 08/08/2011 - 150mg MD Cindy 11/22/2011 Tablets Metoprolol Tartrate one po qd 90tabs 785.0 Idania Piedra 08/08/2011 - e, MOLDING LINE ASSISTANT 08/21/2011 25mg Tablets Flonase one spray per nare 1units 461.0 Idania Piedra 08/08/2011 - 50mcg/Act bid e, MOLDING LINE ASSISTANT 11/22/2011 Suspension Doxycycline Hyclate 1 po bid 28caps 461.0 Idania Piedra 08/08/2011 - e, MOLDING LINE ASSISTANT 08/21/2011 100mg Capsules Melatonin 2 tabs po qhs 60tabs 780.52 Jhonatan, 02/28/2011 - 5mg Tablets MD Cindy 04/03/2011 Sub Vitamin B-12 1 po bid 60tabs 281.1 Jhonatan, 10/28/2010 - 2500mcg MD Cindy 08/07/2011 Tablets Sub Symbicort inhale 2 puffs by 1units 493.90 Jhonatan, 10/28/2010 - mouth 2 times a day MD Cindy 04/03/2011 160-4.5mcg/Act Aerosol Ibuprofen 1 po tid with food 90tabs 729.2 Jhonatan, 09/14/2010 - 800mg MD Cindy 02/17/2013 Tablets Benadryl 1 to 2 po qhs 60tabs 780.52 Jhonatan, 09/14/2010 - 25mg Tablets MD Cindy 07/18/2012 Clophed cough suppressant Jhonatan, 06/16/2010 - 10cc q every 6 MD Cindy 04/03/2011 hours as needed for cough Dexilant 1 po qd 90caps 530.81 Jhonatan, 06/16/2010 - 60mg MD Cindy 11/29/[address] Nam Mendez, 05/19/2010 - MD Cindy 04/03/2011 90mcg/Act Aerosol Vitamins For Hair one po qd 704.9 Jhonatan, 05/19/2010 - MD Cindy 08/07/2011 Tablets Fluconazole Take 1 tablet by 4tabs E930.9 Jhonatan, 04/21/2010 - 150mg mouth daily MD Cindy 04/14/2010 Tablets Fluconazole one po prn 4tabs E930.9 Jhonatan, 04/21/2010 - 150mg MD Cindy 04/14/2010 Tablets Diclofenac Sodium 1 tab po 2 or 3 30tabs 724.2 Robynjugbeledison, 11/09/2009 - times daily MD Cindy 08/07/2011 50mg Tablets Ibuprofen 1 po tid prn 90tabs Robynjugobed, 09/13/2009 - 800mg MD Cindy 09/14/2010 Tablets Omron Micro Air Use q4h prn 1units Maggie Chaney MD 05/24/2009 - Vibrating Mesh 04/03/2011 Nebulizer #[id number] Nystatin apply liberally to 60g Maggie Chaney MD 05/14/2009 - affected area 07/20/2009 591169Enaf/GM Cream qd-bid prn Avelox 1 tab po daily x 10 10tabs 462 Robynjugobed, 05/07/2009 - 400mg Tablets days MD Cindy 06/14/2009 Diflucan 1 po qd 2tabs Robynjugbeledison, 05/07/2009 - 150mg MD Cindy 05/07/2009 Tablets Prednisone 1 po tid x 3d, then 20tabs 493.90 Maggie Chaney MD 04/23/2009 - 20mg 1 bid x 3d, then 05/06/2009 Tablets 1 qd x 3d, then 1/2 qd x 4d Prednisone take as directed 59tabs 493.90 Jhonatan, 04/22/2009 - 10mg MD Cindy 04/23/2009 Tablets Levaquin 1 po qd x 10 days 10tabs 461.8 Maggie Chaney MD 04/19/2009 - 500mg 05/06/2009 Tablets Prednisone 1 po tonight, then 21tabs 493.90 Maggie Chaney MD 04/19/2009 - 20mg 1 tid x 3d, then 1 04/23/2009 Tablets bid x 3d, then 1 qd x 3d, then 1/2 qd until done Diflucan 1 po qd 1tabs 461.8 Maggie Chaney MD 04/19/2009 - 150mg 05/07/2009 Tablets Ipratropium-Albutero 1 qid prn 25units 493.90 Maggie Chaney MD 04/12/2009 - l 08/07/2011 0.5-2.5(3)M Solution Pulmicort 1 by neb bid 1Box 493.90 Maggie Chaney MD 04/12/2009 - 0.5mg/2ML 08/07/2011 Suspension Prednisone 1 po qd x 5 d 5tabs 692.89 Maggie Chaney MD 04/12/2009 - 20mg 04/19/2009 Tablets TENS Unit Use as directed by Maggie Samayoa MD 03/16/2009 - therapist. 06/14/2009 Dx: LBP and sciatica Voltaren apply to affected 5tubes 729.4 Jhonatan, 01/22/2009 - 1% Gel area swapnil Moss MD 04/12/2009 Nabumetone 1 po bid 60tabs Jhonatan, 01/21/2009 - 750mg MD Tremayne 04/12/2009 Tablets Voltaren apply to affected 1tube Jhonatan, 01/21/2009 - 1% Gel area swapnil Moss MD 04/12/2009 Nexium 1qd - take one 30units 530.81 Jhonatan, 12/16/2008 - 40mg CPDR capsule by mouth MD Cindy 04/03/2011 every day Singulair 1 po qd 30tabs 786.09 Maggie Chaney MD 09/14/2008 - 10mg 01/21/2009 Tablets Vicodin 1-2 po qhs prn 30tabs 724.2 Maggie Chaney MD 07/29/2008 - 5-500mg 08/18/2008 Tablets Prevident 5000 Plus for sensitive teeth 1Tube Jhonatan, 07/28/2008 - as directed MD Cindy 10/09/2014 1.1% Cream Duoneb 1 vial qid prn 25units Maggie Chaney MD 05/15/2008 - Solution 08/18/2008 Pulmicort 1 by neb bid 1Box Maggie Chaney MD 05/15/2008 - 0.5mg/2ML 08/18/2008 Suspension Azithromycin 2 po day 1, then 1 6tabs Maggie Chaney MD 05/15/2008 - 250mg po qd until done 07/28/2008 Tablets Tramadol HCL 1 po qid prn 40tabs Maggie Chaney MD 05/04/2008 - 50mg 08/18/2008 Tablets Nuwvizyo-KBJ-2 apply 1 patch 12units I10 Jhonatan, 04/08/2008 - transdermally MD Tremayne 06/27/2016 0.3mg/24HR Patches weekly, remove old Weekly patch Norvasc 1 po qd 90tabs 401.1 Jhonatan, 03/05/2008 - 10mg Tablets MD Tremayne 02/04/2014 Albuterol 1 puff qid prn 2units 493.90 Maggie Chaney MD 02/04/2008 - 90mcg/Act 07/21/2013 Aerosol Nexium 24HR take 2 capsule by Unknown - 20mg mouth daily as 11/26/[address] needed Prednisone 4 po qd x3days, 30tabs Unknown - 10mg then 3 po qd 10/24/2018 Tablets x3days, then 2 po qd x3 days, then 1 po qd x 3days. Doxycycline Hyclate 1 by mouth twice a Unknown - day 09/21/2018 100mg Tablets Prednisone 2 po a day x 5 Unknown - 20mg days. 08/02/2018 Tablets Naproxen Sodium as directed on Unknown - 220mg bottle 10/24/2018 Tablets Gabapentin take 3 capsule by Unknown - 300mg mouth bid 10/23/2018 Capsules Amitriptyline HCL take 2 po bid Unknown - 06/04/2017 10mg Tablets Doxycycline Hyclate 1 by mouth twice a Unknown - day 06/06/[address] Campbell 1 by mouth every K21.9 Unknown - 20mg Capsules day 05/08/2017 K44.9 Dulera inhale two puffs Unknown - 100-5mcg/Act by mouth twice a 04/23/2015 Aerosol day Combivent Respimat one inhalation Unknown - four times a day 12/01/2014 20-100mcg/Act Aerosol Minocycline HCL Unknown - 75mg 04/23/2015 Capsules Pulmicort Flexhaler 1 puff twice a day 1units Unknown - 09/04/2014 180mcg/Act Aerosol Singulair 1 by mouth every 30tabs Unknown - 10mg day 07/13/2014 Tablets Norvasc 1 by mouth every 90tabs I10 Zoey, - 10mg Tablets day MD Catie 05/06/2015 Nexium 1 tab by mouth 530.81 Unknown - 40mg Capsules every morning on 04/23/2015 empty stomach 553.3 Levofloxacin 1 po qd 7tabs Unknown - 750mg 07/25/2011 Tablets Oxycodone/Acetaminoph 1-2 po q 6 prn 120tabs 729.2 Cindy Mendez, - [place] [facility]SP[facility] 04/03/2011 5-325mg Tablets Omnaris one spray bid 12.500gm Unknown - 50mcg/Act 04/03/2011 Suspension Medications Administered in Office Medication SIG Qnty Indications Ordering Provider Date Injection Vitamin B-12 Cindy Mendez, 07/07/2010 Cyanocobalamin To 1000 mcg MD [id number] Injection Injection Vitamin B-12 Cindy Mendez, 06/30/2010 Cyanocobalamin To 1000 mcg MD [id number] Injection Injection Vitamin B-12 Cindy Mendez, 06/22/2010 Cyanocobalamin To 1000 mcg [id number] Injection Vitamin B-12 [place] PA 06/22/2010 Injection Injection Vitamin B-12 RobynjugbelCindy hogan, 06/16/2010 Cyanocobalamin To 1000 mcg [id number] Injection Injection Ketorolac Tromethamine Cindy Mendez, 11/09/2009 Per 15 MG (Toradol)[id number] MD Injection Injection Ketorolac Tromethamine [place] PA 11/09/2009 Per 15 MG (Toradol)[id number] Injection Inj. Methylprednisolonesodium Maggie Chaney MD 04/19/2009 Succinate 125 MG Im Injection Inj. Methylprednisolonesodium Maggie Chaney MD 04/19/2009 Succinate 125 MG Im Injection Immunizations CPT Code Status Date Vaccine Lot # [id number] Given 05/04/2011 Influenza Split 5yrs and above Afluria [id number] 72767 Given 03/30/2009 Influenza Split 5yrs and above Afluria 64482 Given 03/30/2009 Influenza Split 5yrs and above Afluria [id number] 56899 Given 06/10/2007 Pneumococcal Vaccine 23 valent 69090 Given 06/10/2007 Td&P (Adacel) 24502 Given 03/10/2005 Influenza Split 5yrs and above Afluria 89461 Given 05/03/2004 Influenza Split 5yrs and above Afluria Vital Signs Date Vital Result Comment 11/26/2018 3:14pm BP Systolic 172 mmHg BP Diastolic 96 mmHg Heart Rate 100 /min Respiratory Rate 18 /min O2 % BldC Oximetry 96 % room air 11/06/2018 12:02pm BP Systolic 154 mmHg BP Diastolic 96 mmHg Heart Rate 95 /min Respiratory Rate 20 /min Weight 246.12 lb Weight 111.642 kg Height 64.75 inches 5'4.75" Height in cm's 164.5 cm BMI (Body Mass Index) 41.3 kg/m2 O2 % BldC Oximetry 96 % room air 10/25/2018 10:35am BP Systolic 148 mmHg BP Diastolic 90 mmHg Heart Rate 103 /min Body Temperature 97.6 F Respiratory Rate 24 /min Height 64.75 inches 5'4.75" Height in cm's 164.5 cm O2 % BldC Oximetry 97 % room air 09/24/2018 10:25am BP Systolic 144 mmHg BP Diastolic 92 mmHg Heart Rate 86 /min Respiratory Rate 20 /min Height 64.75 inches 5'4.75" Height in cm's 164.5 cm O2 % BldC Oximetry 98 % room air 08/02/2018 11:20am BP Systolic 144 mmHg BP Diastolic 84 mmHg Heart Rate 96 /min Respiratory Rate 18 /min Height 64.75 inches 5'4.75" Height in cm's 164.5 cm O2 % BldC Oximetry 97 % room air 07/19/2018 1:22pm BP Systolic 172 mmHg BP Diastolic 94 mmHg Heart Rate 106 /min Body Temperature 98.2 F Respiratory Rate 24 /min labored Height 64.75 inches 5'4.75" Height in cm's 164.5 cm O2 % BldC Oximetry 96 % room air 07/09/2018 2:02pm BP Systolic 154 mmHg BP Diastolic 94 mmHg Heart Rate 85 /min Body Temperature 98.2 F Respiratory Rate 22 /min Weight 244.00 lb With Shoes refused Weight 110.678 kg Height 64.75 inches 5'4.75" Height in cm's 164.5 cm BMI (Body Mass Index) 40.9 kg/m2 O2 % BldC Oximetry 96 % room air 07/05/2018 4:28pm BP Systolic 158 mmHg BP [...] H/L Range Note Laboratory test 11/13/2017 [facility] D-Dimer,Sensitive <0.19 mg/L (< 0.50) finding Laboratory test 11/13/2017 [facility] B-Type <pending> finding (315)- - Natriuretic D-Dimer Sensitive <pending> Xray 05/03/2017 MDR - [facility] 05/[id number] Right Hand w/o [place]RI[place] Ding [id number] [phone] BMP W/Egfr 11/14/2016 [facility] Sodium 142 mmol/L (136-145 ) Potassium 4.4 mmol/L (3.6-5.2) Chloride 107 mmol/L (100-108) Co2 26 mmol/L (22-31) Anion Gap 9 mmol/L (7-16) Urea Nitrogen 13 mg/dL (7-24) Creatinine 0.68 mg/dL (0.60-1.00) BUN/Creat Ratio 19.1 RATIO (10.0-20.0) Glucose 75 mg/dL (70-99) Calcium 8.9 mg/dL (8.4-10.2) GFR >60 ml/min/1.73m2 (>59) GFR ( Amer) >60 ml/min/1.73m2 (>59) GFR Interpretation <SEE NOTE> 1 BMP W/Egfr 10/10/2016 [facility] Sodium 137 mmol/L (136-145) Potassium 3.5 mmol/L Low (3.6-5.2) Chloride 102 mmol/L (100-108) Co2 27 mmol/L (22-31) Anion Gap 8 mmol/L (7-16) Urea Nitrogen 14 mg/dL (7-24) Creatinine 0.77 mg/dL (0.60-1.00) BUN/Creat Ratio 18.2 RATIO (10.0-20.0) Glucose 89 mg/dL (70-99) Calcium 9.2 mg/dL (8.4-10.2) GFR >60 ml/min/1.73m2 (>59) GFR ( Amer) >60 ml/min/1.73m2 (>59) GFR Interpretation <SEE NOTE> 2 BMP W/Egfr 08/22/2016 [facility] Sodium 139 mmol/L (136-145) Potassium 3.3 mmol/L [...] <SEE NOTE> 3 BMP W/Egfr 08/10/2016 [facility] Sodium 140 mmol/L (136-145) Potassium 3.3 mmol/L Low (3.6-5.2) Chloride 103 mmol/L (100-108) Co2 30 mmol/L (22-31) Anion Gap 7 mmol/L (7-16) Urea Nitrogen 18 mg/dL (7-24) Creatinine 0.82 mg/dL (0.60-1.00) BUN/Creat Ratio 22.0 RATIO High (10.0-20.0) Glucose 88 mg/dL (70-99) Calcium 8.4 mg/dL (8.4-10.2) GFR >60 ml/min/1.73m2 (>59) GFR ( Amer) >60 ml/min/1.73m2 (>59) GFR Interpretation <SEE NOTE> 4 Laboratory 07/18/2016 [facility] TSH,Ultrasensitive @ 0.860 (0.360- 4.170) test finding mIU/L CBC W/Auto 07/18/2016 [facility] WBC 15.3 High (4.1-11.0) Diff & PLT 10*3/uL RBC 5.06 10*6/uL (4.00-5.40) HGB 14.9 g/dL (12.0-16.0) HCT 45.2 % (36.0-47.0) MCV 89.5 fL (80.0-95.0) MCH 29.5 pg (27.0-32.0) MCHC 33.0 g/dL (32.0-36.0) RDW 13.8 % (10.5-14.5) PLT 407 10*3/uL (150-450) MPV 7.6 fL (7.1-10.7) Neut % 80.7 % High (35.0-75.0) Lymph % 13.2 % Low (16.0-52.0) [place] % 5.1 % (0.0-8.0) Eos % 0.5 % (0.0-5.0) Baso % 0.5 % (0.0-4.0) Neut # 12.4 10*3/uL High (1.8-7.7) Lymph # 2.0 10*3/uL (1.2-4.8) [place] # 0.8 10*3/uL (0.0-0.8) Eos # 0.1 10*3/uL (0.0-0.5) Baso # 0.1 10*3/uL (0.0-0.2) CMP W/Egfr 07/18/2016 [facility] Sodium 140 mmol/L (136-145) Potassium 3.7 mmol/L (3.6-5.2) Chloride 98 mmol/L Low (100-108) Co2 30 mmol/L (22-31) Anion Gap 12 mmol/L (7-16) Urea Nitrogen 14 mg/dL (7-24) Creatinine 0.72 mg/dL (0.60-1.00) BUN/Creat Ratio 19.4 RATIO (10.0-20.0) Glucose 108 mg/dL High (70-99) 5 Calcium 9.3 mg/dL (8.4-10.2) Total Protein 7.6 g/dL (6.4-8.2) Albumin 3.9 g/dL (3.5-4.6) Globulin 3.7 g/dL (2.7-4.3) Alb/Glob Ratio 1.1 RATIO Alkaline Phosphatase 88 U/L (45-117) Bilirubin,Total 0.3 mg/dL (0.0-1.0) Ast (Sgot) 12 U/L (11-39) Alt (SGPT) 21 U/L (12-78) GFR >60 ml/min/1.73m2 (>59) GFR ( Amer) >60 ml/min/1.73m2 (>59) GFR Interpretation <SEE NOTE> 6 Lipid Panel 07/18/2016 [facility] Cholesterol @ 174 mg/dL (0-200) Triglyceride @ 150 mg/dL (30-200) 7 HDL Cholesterol @ 47 mg/dL (>40) 8 Chol/HDL Ratio 3.7 RATIO 9 LDL Chol (Calc) 97 mg/dL (<130) 10 Xray 07/11/2016 [facility] VQ scan today 12:15pm [address], [address] [place] [address] [phone] Laboratory test 06/27/2016 [facility] LAB[facility]ORY 11 finding Fluid ALLIA <SEE Specimen NOTE> Urine Culture SPECIMEN DESCRI> 12 Bilirubin Urine NEGATIVE (Neg) Urinalysis W/Micro 06/27/2016 [facility] Color MIKAEL Appearance TURBID Spec Grav Urine [...] 08/18/2014 Glucose Serum 91 finding Xray 06/16/2014 [facility] printed for [phone] Xray 03/14/2014 [facility] [address]- ct of 03/27 @ 9+ [phone] chest w/o HPV Dna Hig/Low 10/28/2010 [facility] Low Risk NOT DETECTED Not Detected 13 Risk (Thinprep) [phone] High Risk NOT DETECTED Not Detected 14 Vitamin D, 25 10/06/2010 [facility] Vitamin D,25-Oh,Total 27 ng/mL Low 30-100 Hydroxy [phone] Vitamin D,25-Oh,D3 27 ng/mL Vitamin D,25-Oh,D2 <4 ng/mL 15 CBC W/ Diff & PLT 10/06/2010 [facility] WBC 8.5 thous/L 3.8-10.8 [phone] RBC 4.65 mill/L 3.80-5.10 Hemoglobin 13.9 g/dL 11.7-15.5 Hematocrit 42.3 % 35.0-45.0 MCV 91.2 FL 80.0-100.0 MCH 29.9 pg 27.0-33.0 MCHC 32.8 g/dL 32.0-36.0 RDW 14.6 % 11.0-15.0 Platelet Count 366 thous/L 140-400 Neutrophils,Absolute 5290 cells/L [phone] Lymphocytes,Absolute 2350 cells/L [phone] Monocytes,Absolute 620 cells/L 200-950 Eosinophils,Absolute 180 cells/L 15-500 Basophils,Absolute 30 cells/L 0-200 Total Neutrophils,% 62 % 38-80 Total Lymphocytes,% 28 % 15-49 Monocytes,% 7 % 0-13 Eosinophils,% 2 % 0-8 Basophils,% 0 % 0-2 Laboratory test finding 10/06/2010 [facility] T3,Free 3.4 pg/mL 2.3-4.2 [phone] Magnesium 2.0 mg/dL 1.5-2.5 Vitamin B12/Folate 10/06/2010 [facility] Vitamin B12,Serum 700 pg/mL 200- 1100 Panel Serum [phone] Folate,Serum 16.8 NG/ML 16 Laboratory test finding 10/06/2010 [facility] Vitamin A 49 g/dL 38-98 [phone] Zinc 97 g/dL 60-130 TSH & Free T4 10/06/2010 [facility] TSH,3RD 2.27 mIU/L 0.40-4.50 17 ([facility]) [phone] Generation T4,Free 1.2 ng/dL 0.8-1.8 Lipid Panel 04/14/2010 [facility] Cholesterol 165 mg/dL 125-200 18 [phone] HDL Cholesterol 42 mg/dL Low > Or=46 Triglycerides 149 mg/dL <150 Cholesterol/HDL Ratio 3.9 < Or=5.0 LDL Chol,Calculated 93 mg/dL <130 19 Laboratory test 04/14/2010 [facility] TSH Autoantibody NEGATIVE Negative finding [phone] Vitamin D, 25 04/14/2010 [facility] Vitamin 22 ng/mL Low 30-100 Hydroxy [phone] D,25-Oh,Total Vitamin D,25-Oh,D3 22 ng/mL Vitamin D,25-Oh,D2 <4 ng/mL 20 Comp Metabolic Panel 04/14/2010 [facility] Sodium 138 mmol/L 135-146 [phone] Potassium 4.3 mmol/L 3.5-5.3 Chloride 104 mmol/L [...] 2.2-3.9 A/G Ratio 1.4 1.0-2.1 Egfr Non-Afr. Trinidadian >60 ML/MIN/1.73M2 > Or=60 Egfr >60 ML/MIN/1.73M2 > Or=60 CBC W/ Diff & PLT 04/14/2010 [facility] WBC 9.7 thous/L 3.8-10.8 [phone] RBC 4.85 mill/L 3.80-5.10 Hemoglobin 14.5 g/dL 11.7-15.5 Hematocrit 43.8 % 35.0-45.0 MCV 90.4 FL 80.0-100.0 MCH 29.9 pg 27.0-33.0 MCHC 33.1 g/dL 32.0-36.0 RDW 13.6 % 11.0-15.0 Platelet Count 376 thous/L 140-400 Platelet Sufficiency NORMAL Normal Neutrophils,Absolute 6540 cells/L [phone] Lymphocytes,Absolute 2280 cells/L 850-3900 Monocytes,Absolute 690 cells/L 200-950 Eosinophils,Absolute 160 cells/L 15-500 Basophils,Absolute 40 cells/L 0-200 Total Neutrophils,% 68 % 38-80 Total Lymphocytes,% 23 % 15-49 Monocytes,% 7 % 0-13 Eosinophils,% 2 % 0-8 Basophils,% 0 % 0-2 RBC Morphology NORMAL Laboratory test 06/30/2009 [facility] Ige,Serum 53 kU/L <115 finding [phone] CBC W/ Diff & PLT 06/30/2009 [facility] WBC 9.9 thous/L 3.8-10.8 [phone] RBC 4.60 mill/L 3.80-5.10 Hemoglobin 13.9 g/dL 11.7-15.5 Hematocrit 41.8 % 35.0-45.0 MCV 90.8 FL 80.0-100.0 MCH 30.3 pg 27.0-33.0 MCHC 33.3 g/dL 32.0-36.0 RDW 13.4 % 11.0-15.0 Platelet Count 381 thous/L 140-400 Platelet Sufficiency NORMAL Normal Neutrophils,Absolute 6560 cells/L 0980-1469 Lymphocytes,Absolute 2550 cells/L 850-3900 Monocytes,Absolute 670 cells/L 200-950 Eosinophils,Absolute 100 cells/L 15-500 Basophils,Absolute 40 cells/L 0-200 Total Neutrophils,% 66 % 38-80 Total Lymphocytes,% 26 % 15-49 Monocytes,% 7 % 0-13 Eosinophils,% 1 % 0-8 Basophils,% 0 % 0-2 RBC Morphology NORMAL Alpha-1 06/30/2009 [facility] Dwslt-7-Mjpiekhuahw 152 83-199 Antitrypsin,QN/Mut,[place] [phone] mg/dL Alpha-1 Antitrypsin Mutat SEE BELOW 22 Clinical Indication 786.2/493.90 Referring Physician MAGGIE CHANEY Laboratory test 06/30/2009 [facility] Ultll-5-Yfgvfkrjctu 149 mg/dL 83-199 finding [phone] Culture,Throat 05/07/2009 [facility]PIRAT[facility] 23 [phone] -THRO <SEE NOTE> Final Report (SEE NOTE) 24 Tissue Pathology 05/07/2009 [facility] Results (SEE NOTE) 25 [phone] Lipid Panel 04/14/2009 [facility] Cholesterol 156 mg/dL 125-200 [phone] HDL Cholesterol 49 mg/dL > Or=46 Triglycerides 81 mg/dL <150 Cholesterol/HDL Ratio 3.2 < Or=5.0 LDL Chol,Calculated 91 mg/dL <130 26 TSH & T4,Free 04/14/2009 [facility] TSH,3RD Generation 0.51 mU/L 0.40-4.50 27 [phone] T4,Free 1.2 ng/dL 0.8-1.8 Vitamin D, 25 04/14/2009 [facility] Vitamin D,25-Oh,Total 22 ng/mL 20-100 Hydroxy [phone] Vitamin D,25-Oh,D3 22 ng/mL Vitamin D,25-Oh,D2 <4 ng/mL 28 Laboratory test 04/14/2009 [facility] Hemoglobin A1c 5.6 % <6.0 finding [phone] CMP W/GFR 04/14/2009 [facility] Sodium 140 mmol/L 135-146 [phone] Potassium 4.3 mmol/L 3.5-5.3 Chloride 104 mmol/L 98-110 Carbon Dioxide 24 mmol/L 21-33 Calcium 9.3 mg/dL 8.6-10.2 Alkaline Phosphatase 88 U/L 33-115 Ast 11 U/L 10-30 Alt 14 U/L 6-40 Bilirubin,Total 0.4 mg/dL 0.2-1.2 Glucose 115 mg/dL High 65-99 29 Urea Nitrogen 12 mg/dL 7-25 Creatinine 0.69 mg/dL 0.59-1.07 BUN/Creatinine Ratio 17.5 6-22 Protein,Total 7.7 g/dL 6.2-8.3 Albumin 4.4 g/dL 3.6-5.1 Globulin,Calculated 3.3 g/dL 2.2-3.9 A/G Ratio 1.3 1.0-2.1 Egfr Non-Afr. Trinidadian >60 ML/MIN/1.73M2 > Or=60 Egfr >60 ML/MIN/1.73M2 > Or=60 CBC W/ Diff & PLT 04/14/2009 [facility] WBC 9.9 thous/L 3.8-10.8 [phone] RBC 4.70 mill/L 3.80-5.10 Hemoglobin 14.6 g/dL 11.7-15.5 Hematocrit 43.1 % 35.0-45.0 MCV 91.6 FL 80.0-100.0 MCH 31.1 pg 27.0-33.0 MCHC 34.0 g/dL 32.0-36.0 RDW 13.4 % 11.0-15.0 Platelet Count 400 thous/L 140-400 Platelet Sufficiency NORMAL Normal Neutrophils,Absolute 8310 cells/L High 2160-6039 Lymphocytes,Absolute 1340 cells/L 850-3900 Monocytes,Absolute 260 cells/L 200-950 Eosinophils,Absolute 0 cells/L Low 15-500 Basophils,Absolute 20 cells/L 0-200 Total Neutrophils,% 84 % 38-80 Total Lymphocytes,% 13 % 15-49 Monocytes,% 3 % 0-13 Eosinophils,% 0 % 0-8 Basophils,% 0 % 0-2 RBC Morphology NORMAL 1 NORMAL KIDNEY FUNCTION OR MILD DISEASE [...] used for medication dosing. 5 FASTING 6 NORMAL KIDNEY FUNCTION OR MILD DISEASE - GFR >OR=60 CHRONIC KIDNEY DISEASE - GFR 15 - 59 RENAL FAILURE - GFR <15 Est. GFR calculation based on the MDRD study equation, which assumes a steady state for creatinine. Est. GFR should not be used for medication dosing. 7 FASTING 8 PER NCEP ATP III GUIDELINES: RESULTS LOWER THAN 40 MG/DL ARE SUGGESTIVE OF INCREASED RISK FOR CORONARY ARTERY DISEASE. RESULTS > OR=TO 60 MG/DL ARE CONSIDERED A NEGATIVE RISK FACTOR. 9 INTERPRETATION OF CHOL-HDL RATIO CHD RISK FEMALE MALE VERY HIGH >8.3 >14.3 HIGH 5.6- 8.3 6.7- 14.3 AVERAGE 3.7- 5.6 4.0- 6.7 BELOW AVERAGE 2.5- 3.7 2.7- 4.0 PROTECTED <2.5 <2.7 10 PER NCEP ATP III GUIDELINES: OPTIMAL < 100 NEAR OPTIMAL 100 - 129 BORDERLINE HIGH 130 - 159 HIGH 160 - 189 VERY HIGH > 189 11 [facility] [address] [place] [id number] MISCELLANEOUS CYTOLOGY REPORT Patient Name:KELLI SZYMANSKI Patient :1970 Ordering Physician:TREMAYNE MENDEZ MD Accession Number: [id number] Source of Specimen(s): A: Urine, Voided Clinical [...] Electronically Signed Out By Pavan Underwood MD [facility] Etl Data Architect: Nidhi Webber CT(ASCP) [facility] [place] SPECIMEN DESCRIPTION URINE, COLLECTION METHOD NOT SPECIFIED CULTURE RESULTS NO GROWTH REPORT STATUS FINAL 06/29/2016 13 Tested for Low Risk HPV Types 6,11,42,43,44. The analytical performance characteristics of this assay, when used to test Surepath(R) or vaginal specimens, have been determined by [facility]. Methodology: Hybrid Capture with Signal Amplification. Performed at [facility] [address] [place] [address] 14 Tested for High Risk HPV Types 16,18,31,33,35,39,45,51,52, 56,58,59,68. The analytical performance characteristics of this assay, when used to test Surepath(R) or vaginal specimens, have been determined by [facility]. Methodology: Hybrid Capture with Signal Amplification. Performed at [facility] [address] [place] [address] 15 25-OHD3 indicates both endogenous production and [...] the PI*Z and PI*S alleles in the lntms-6-dfrshpikoxk (PI) gene (genotype PI*M/PI*M). This negative result does not rule out the presence of other mutations within the PI gene or other causes of ynvsj-5-ztptuegdshd deficiency. Therefore, these results should be interpreted in the context of the individual's clinical presentation, and other laboratory tests such as measurement of serum fjqlv-0-prykdwlbjxt levels. Laboratory results and submitted clinical information reviewed by Merry Ng, Ph.D., [facility] [place], [facility] Xxjby-6-vksaatzvbyq deficiency is a relatively common autosomal recessive condition. The two most common deficiency alleles in the gaqna-0-ueqcrnrfqdg gene (protease inhibitor locus, PI) are designated [...] smoke. It should be noted that serum ffhja-3-zpdvtryopub levels can be induced by a wide variety of conditions that include , infection, numerous inflammatory conditions, cancer, and liver disease. Levels of sfgle-0-hergutrglor may be reduced by other conditions. Therefore, immunological and functional determinations of serum njktj-6-cqvhzojkkca levels may not correlate with the individual's PI genotype. The PI*Z, PI*S, and PI*M alleles are detected by multiplex polymerase chain reaction (PCR) amplification of specific regions of the PI gene, followed by restriction enzyme digestion and capillary electrophoresis. This assay does not test for the presence of other mutations within the onjrr-3-ommsqohpvju gene or non-genetic causes of wreop-3-xsrnavkplnz deficiency. Since genetic variation and other factors can affect the accuracy of direct mutation testing, these results should be interpreted in light of clinical and familial data. This test was developed and its performance characteristics have been determined by [facility]. Performance characteristics refer to the analytical performance of the test. 23 RESPIRATORY-THROAT 24 NORMAL OROPHARYNGEAL TRISHA. 25 TISSUE PATHOLOGY REPORT Tissue Pathology Report Status: FINAL Clinical Information and/or Impression: Rash DIAGNOSIS: A) Back : Acute suppurative folliculitis. See comment. 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 PATHOLOGIST: Pavan Arreaga MD, Board Certified in Dermatology and Dermatopathology (electronic signature) For questions regarding this report call Anatomic Pathology at [phone] GROSS DESCRIPTION: A) Specimen is received in formalin, labeled with the patient's name, but no source on the vial and consists of a 0.4 x 0.4 x 0.2 cm. fragment of singletary skin. The surgical margin is inked with blue ink. The specimen is bisected and totally submitted, two pieces in a single cassette. JG:yasemin 05/10/09 Gross Exam(s) performed at: [facility] [address] [place] [address]., [place] [address] Fixture Maker: CHRISTOPHER JIMENEZ MD 26 LDL-CHOLESTEROL RISK CATEGORY* GOAL VERY HIGH (E.G. DIABETES + CVD) <70 MG/DL HIGH (DIABETICS; CHD RISK EQUIVALENTS) <100 MG/DL MODERATELY HIGH (MULTIPLE(2+) RISK FACTORS) <130 MG/DL 0 TO 1 RISK FACTORS <160 MG/DL * NCEP REPORT. CIRCULATION 2004; 110: [phone] TSH REFERENCE RANGE: FIRST TRIMESTER - 0.20 - 4.70 mU/L SECOND TRIMESTER - 0.30 - 4.10 mU/L THIRD TRIMESTER - 0.40 - 2.70 mU/L 28 25-OHD3 indicates both endogenous production and supplementation. 25-OHD2 is an indicator of exogenous sources such as diet or supplementation. Therapy is based on measurement of Total 25-OHD, with levels <20 ng/mL indicative of Vitamin D deficiency while levels between 20 ng/mL and 30 ng/mL suggest insufficiency. Optimal levels are >30 ng/mL. 29 GLUCOSE REFERENCE RANGE BASED ON FASTING SPECIMEN. Procedures Date Code Description Status 07/09/2018 18095 Electrocardiogram Complete Completed 10/22/2017 19036 Oximetry Single Determination Completed 07/03/2017 84180 Oximetry Single Determination Completed 07/03/2017 06755 Electrocardiogram Complete Completed 10/10/2016 33685 Oximetry Single Determination Completed 09/18/2016 22581686 Mammogram Completed 08/22/2016 21943 Oximetry Single Determination Completed 07/11/2016 16853 Oximetry Single Determination Completed 07/04/2016 02911 Oximetry Single Determination Completed 06/27/2016 99702 Electrocardiogram Complete Completed 05/06/2015 26611 Spirometry Completed 05/06/2015 98601 Electrocardiogram Complete Completed 03/14/2014 24641 Oximetry Single Determination Completed 02/06/2014 38200 Electrocardiogram Complete Completed 02/06/2014 52839 Oximetry Single Determination Completed 02/06/2014 45109 Spirometry Completed 07/21/2013 18206 Oximetry Single Determination Completed 02/18/2013 04967 Oximetry Single Determination Completed 10/17/2012 33604 Electrocardiogram Complete Completed 10/17/2012 07237 Pure Tone Hearing Test, Air Completed 10/17/2012 53088 Oximetry Single Determination Completed 10/17/2012 21196 Visual Screening Test Of Visual Acuity, Quantitative, Completed Bilateral 10/17/2012 75822 Spirometry Completed 11/23/2011 54154 Oximetry Single Determination Completed 08/22/2011 18840 Oximetry Single Determination Completed 08/08/2011 28534 Oximetry Single Determination Completed 07/26/2011 98894 Oximetry Single Determination Completed 05/04/2011 35831 Oximetry Single Determination Completed 04/04/2011 76258 Oximetry Single Determination Completed 04/04/2011 37374 Electrocardiogram Complete Completed 04/04/2011 03076 Electrocardiogram Complete Completed 02/28/2011 85933 Oximetry Single Determination Completed 11/22/2010 49314 Visual Field Exam Intermediate, Unilateral Or Completed Bilateral 10/28/2010 23857 Electrocardiogram Complete Completed 09/14/2010 08791 Oximetry Single Determination Completed 07/07/2010 15419 Injection Therapeutic Prophylactic Or Diagnostic Completed 06/30/2010 29495 Injection Therapeutic Prophylactic Or Diagnostic Completed 06/22/2010 85671 Injection Therapeutic Prophylactic Or Diagnostic Completed 06/16/2010 47158 Injection Therapeutic Prophylactic Or Diagnostic Completed 06/16/2010 29172 Oximetry Single Determination Completed 05/20/2010 006067230 Bone Mineral Density Test Completed 11/09/2009 08045 Injection Therapeutic Prophylactic Or Diagnostic Completed 11/09/2009 29171 Oximetry Single Determination Completed 11/09/2009 05365 Oximetry Single Determination Completed 07/20/2009 81206 Oximetry Single Determination Completed 07/20/2009 06176 Oximetry Single Determination Completed 05/07/2009 31951 Oximetry Single Determination Completed 05/07/2009 31295 Oximetry Single Determination Completed 05/07/2009 68372 Biopsy Skin Lesion Single Completed 04/22/2009 17501 Oximetry Single Determination Completed 04/22/2009 65500 Airway Inhalation Treatment Completed 04/19/2009 24855 Aerosol Or Vapor Inhalations Subsequent Completed 04/19/2009 28097 Airway Inhalation Treatment Completed 04/12/2009 43439 Spirometry Completed 07/29/2007 18255 Aerosol Or Vapor Inhalations Initial Completed 07/29/2007 50349 Airway Inhalation Treatment Completed 03/29/2007 23224 Destruction Of Flat Warts Or Molluscum Contagiosum, Completed Milia To 14 03/22/2007 04930 Aerosol Or Vapor Inhalations Initial Completed 03/22/2007 57903 Airway Inhalation Treatment Completed 03/22/2007 17652 Destruction Of Lesions 2-14 Completed 03/22/2007 47625 Destruction Of Lesion First Completed 09/03/2006 91302 Spirometry Completed 05/17/2006 57356 Aerosol Or Vapor Inhalations Initial Completed 05/17/2006 06318 Airway Inhalation Treatment Completed 03/15/2006 47694 Spirometry Completed 11/23/2005 80959 Spirometry Completed 11/23/2005 20415 Electrocardiogram Complete Completed 06/29/2005 67832 Bronchospasm Evaluation Completed 04/04/2004 46672 Aerosol Or Vapor Inhalations Initial Completed 04/04/2004 14242 Airway Inhalation Treatment Completed Encounters Type Date Location Provider Dx Diagnosis Office Visit 11/06/2018 Patel Mendez I10 Essential (primary) 11:30a Jovan Moss MD hypertension J45.998 Other asthma R05 Cough Z68.41 Body mass index (BMI) 40.0-44.9, adult Office Visit 10/25/2018 Patel Mendez J45.998 Other asthma 10:15a Jovan Moss MD I10 Essential (primary) hypertension R05 Cough Office Visit 09/24/2018 10:15a Tremayne Reina, R05 Cough J45.998 Other asthma Office Visit 08/02/2018 11:00a Tremayne Reina, R05 Cough I10 Essential (primary) hypertension Office Visit 07/19/2018 Patel Mendez J45.998 Other asthma 1:15p Jovan Moss MD R05 Cough I10 Essential (primary) hypertension Office Visit 07/09/2018 Patel Menedz Z00.00 Encntr for 1:30p Jovan Moss MD general adult medical exam w/o abnormal findings J45.998 Other asthma I10 Essential (primary) hypertension K21.9 Gastro-esophageal reflux disease without esophagitis Z68.41 Body mass index (BMI) 40.0-44.9, adult Office 07/05/2018 Patel Mendez J45.901 Unspecified Visit 4:30p Jovan Moss MD asthma with (acute) exacerbation Office 06/20/2018 Berta Mendez, J03.90 Acute Visit 12:45p Jovan Moss MD tonsillitis, unspecified Office 05/01/2018 Patel Mendez, M25.561 Pain in right Visit 11:15a Jovan Moss MD knee M51.36 Other intervertebral disc degeneration, lumbar region Office Visit 03/05/2018 Patel Mendez J45.998 Other asthma 8:45a Jovan Moss MD I10 Essential (primary) hypertension K21.9 Gastro-esophageal reflux disease without esophagitis M25.561 Pain in right knee G47.33 Obstructive sleep apnea (adult) (pediatric) Office Visit 12/06/2017 Patel Mendez I10 Essential 9:00a Jovan Moss MD (primary) [...] (BMI) 39.0-39.9, adult Office Visit 05/17/2017 9:00a Patel Sanchez, I10 Essential Medical DANETTE Schwartz (primary) hypertension K21.9 Gastro-esophageal reflux disease without esophagitis R05 Cough Z68.39 Body mass index (BMI) 39.0-39.9, adult Office Visit 05/08/2017 2:45p Patel Sanchez, I10 Essential Medical DANETTE Schwartz (primary) hypertension K21.9 Gastro-esophageal reflux disease without esophagitis R05 Cough J45.20 Mild intermittent asthma, uncomplicated E87.6 Hypokalemia Z68.39 Body mass index (BMI) 39.0-39.9, adult Office Visit 05/03/2017 Patel Mendez, I10 Essential 10:00a Jovan Moss [...] (BMI) 38.0-38.9, adult Office Visit 07/04/2016 Patel Mendez J45.998 Other asthma 3:30p Jovan Moss MD [...] Status Asthmaticus Office Visit 06/16/2014 11:45a Patel Mendez, 786.2 Cough MD Tremayne 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 401.1 Hypertension Benign Office Visit 04/14/2014 12:15p Patel Mendez, 786.2 Dasia Moss MD 110.5 Dermatophytosis Body 401.1 Hypertension Benign Office Visit 03/14/2014 Patel Mendez, 493.90 Asthma Unspec 12:00p Jovan Moss MD W/O Status Asthmaticus 786.2 Cough 786.05 Shortness Of Breath 462 Pharyngitis Acute Office Visit 02/06/2014 Patel Mendez, V70.0 Examination 2:45p Jovan Moss MD General Medical Routine AT [facility] 493.90 Asthma Unspec W/O Status Asthmaticus 786.2 Cough 786.05 Shortness Of Breath 401.1 Hypertension Benign Office Visit 07/21/2013 Patel Escoto, 493.90 Asthma Unspec W/O 11:30a 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, [employer]IST[employer] Status Asthmaticus 466.0 Bronchitis Acute 401.1 Hypertension Benign Office Visit 07/14/2013 Patel Escoto, 466.0 Bronchitis Acute 1:30p 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, [employer] ASSISTANT Office Visit 06/19/2013 Herbert Mendez, 401.1 Hypertension [...] Acute Maxillary Office Visit 05/04/2011 2:00p Berta [facility] Liz 401.1 Hypertension Medical Benign 278.00 [...] 401.1 Hypertension Benign Office Visit 07/20/2009 Berta Franklin, 493.90 Asthma Unspec 5:50p Medical DANETTE Guerrero W/O Status Asthmaticus 786.2 Cough 401.1 Hypertension [...] [place], 493.90 Asthma Unspec 2:40p DANETTE [place] W/O Status Asthmaticus 462 Pharyngitis Acute 782.8 [...] Visit 01/22/2009 Patel Mendez, 729.4 Fasciitis 10:45a oJvan Moss MD Unspec 401.1 Hypertension Benign Office Visit 09/14/2008 [...] & Respiratory Abnormalities Other Office Visit 05/15/2008 Maggie Bear, 461.8 Sinusitis Acute 5:45p Jovan OSPINA Other [...] 462 Pharyngitis Acute Plan of Treatment Future Appointment(s):12/10/2018 9:45 am - Tremayne Mendez MD at [facility]07/11/2019 10:30 am - Tremayne Mendez MD at [facility]11/26/2018 - Tremayne Mendez MDI10 Essential (primary) hypertensionNew Medication:Doxazosin Mesylate 4 mg - 1 by mouth every dayComments:Increase Doxazosin 2mg to 4mgFollow up:2 [id number] CoughComments: RabewtgM68.9 Gastro-esophageal reflux disease without esophagitisNew Medication: Nexium 40 mg - 1 by mouth every dayComments:Increase Nexium 20mg to 96prC23.998 Other asthmaComments:Continue present management.
--- OUTSIDE RECORDS SUMMARY | 2018-12-01 19:46 | XMS REPORT | Continuity of Care Document ---
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 Hand Dominance Left-handed Advance Directive 02/06/2014 Negative For Health Care Form given [employer]xy [employer]obb[employer] Music ETOH Use Rarely consumes alcohol Recreational Drug Use Denies Drug Use Tobacco Use Reviewed: 03/03/15 Patient has never smoked Smoking Status Reviewed: 11/06/18 Patient has never smoked Exercise Type/Frequency Does [...] Qnty Indications Ordering Date Provider Doxazosin Mesylate Take 1 Tablet By 30tabs I10 Jhonatan, 11/04/2018 Mouth Every Night MD Tremayne 1mg Tablets AT Bedtime Budesonide Use 0.25 ML Via 180units J45.998 Jhonatan, 07/09/2018 Nebulizer Twice MD [place] 0.25mg/2ML Daily as Needed Suspension Spacer Chamber For use with the 1units J45.901 Jhonatan, 10/10/2016 Inhaler Ventolin Dx maeve45.998 MD [place]rem[place]ne Albuterol Sulfate Use 1 Vial Via 150units Maeve45.901 Jhonatan, 06/27/2016 Nebulizer Every 4 MD [place] (2.5mg/3ML) 0.083% Hours as Needed For Nebulizer Bronchospasm Nebulizer Dx: j45.998 1units Maeve45.901 Jhonatan, 07/16/2014 Device MD [place] Ventolin HFA 2 puffs as needed 1units J45.20 Jhonatan, 07/14/2013 for sob MD [place]ne 108(90Base) mcg/Act Aerosol Epipen 2-Yrn use as directed 3units Jhonatan, MD [place] 0.3mg/0.3ML Solution Auto-Inject Zyrtec Allergy 1 by mouth every Unknown 10mg day as needed Tablets History Medications Dilt-XR Take 1 Capsule 90caps I10 Jhonatan, 10/02/2018 - 240mg Caps ER 24HR By Mouth Every MD Trem[place]ne 10/18/2018 Day Benzonatate take one three 30caps R05 Jhonatan, 09/24/2018 - 200mg Capsules times a day MD [place] 11/02/2018 Hydrocodone take 1tsp by 110ml R0Oneyda Mendez, 07/19/2018 - Polistirex/Chlorpheniram mouth twice a MD [...] - 160mg Tablets day MD [place]ne 06/11/2017 Iuqaucim-LXJ-5 1 patch weekly 4units I10 Jhonatan, 03/22/2017 - 0.1mg/24HR MD [place] 05/03/2017 Patches Weekly Potassium Chloride ER 1 every day 31tabs Jhonatan, 08/10/2016 - 20Meq MD [place] 11/14/2016 Tablets ER Chlorthalidone 1 by mouth every 30tabs I10 Jhonatan, 07/25/2016 - 50mg Tablets day MD [place] 10/10/2016 Cpalovsx-CUM-1 1 patch weekly 4units I10 Jhonatan, 07/25/2016 - 0.1mg/24HR MD [place] 10/09/2016 Patches Weekly Diltiazem HCL ER 1 by mouth every 90caps I10 Jhonatan, 07/25/2016 - 240mg Caps day MD [place] 10/02/2018 ER 24HR Asmanex Twisthaler 120 use 2 puffs two 1units Lenore Mendez, 2016 - Metered Doses times a day MD [place] 08/07/2016 220mcg/Inh Aerosol Budesonide 2ml va neb 60ml Lenore Mendez, 07/11/2016 - 0.5mg/2ML bid/prn MD [place] 07/11/2016 Suspension Pulmicort Flexhaler 1 puff twice a 1units Lenore Mendez, 07/10/2016 - day MD [place] 07/10/2016 180mcg/Act Aerosol Breo Ellipta 1 inhalation 60units J45.90 Jhonatan, 07/10/2016 - 200-25mcg/Inh every day MD [place] 07/10/2016 Aerosol Budesonide 2ml va neb 60ml J45.90 Jhonatan, 07/04/2016 - 0.5mg/2ML bid/prn MD [place] 07/10/2016 Suspension Prednisone 2 tabs by mouth 21tabs J45.901 Jhonatan, 07/04/2016 - 10mg Tablets daily for 1 week MD [place] 07/24/2016 then 1 tab daily for 1 week Benzonatate take one every 4 50caps J45.901 Jhonatan, 07/04/2016 - 200mg Capsules hours as needed MD [place] 08/10/2016 Montelukast Sodium 1 by mouth every 30tabs 45.90 Jhonatan, 06/27/2016 - 10mg day MD [place] 08/10/2016 Tablets Chlorthalidone 1 by mouth every 90tabs I10 Jhonatan, 06/27/2016 - 25mg Tablets day MD [place] 07/25/2016 Lhdxvybl-CFF-1 Apply one patch 4units I10 Robynobed, 06/27/2016 - 0.2mg/24HR qweekly MD [place] 07/25/2016 Patches Weekly Amlodipine Besylate 1 by mouth every 90tabs I10 Jhonatan, 05/06/2015 - 10mg day MD [place] 07/25/2016 Tablets Doxycycline Hyclate Take 1 tablet by 20tabs J45.901 Zoey 04/23/2015 - 100mg mouth 2 times MD Catie 05/06/2015 Tablets per day for 10 days for infection Diflucan one tablet once 1tabs J45.901 Zoey, 04/23/2015 - 150mg Tablets by mouth x 1 MD Catie 05/06/2015 Tussionex Pennkinetic take 5 150ml 786.2 Zoey 08/10/2014 - Extended Release milliliters by MD Catie 10/09/2014 10-8mg/5ML mouth every 12 Liquid ER hours as needed for cough Portable Nebulizer With 1units 493.90 Zoye, 07/14/2014 - Battery MD Catie 05/06/2015 Tussionex Pennkinetic Take 5 ml by 473ml 786.2 Zoey, 07/14/2014 - Extended Release mouth every 12 MD Catie 08/09/2014 10-8mg/5ML hours as needed Liquid ER for cough Benzonatate 1 by mouth 100caps 786.2 Ojugobed, 04/14/2014 - 200mg Capsules qid/prn MD [place]ne 07/13/2014 Clotrimazole/Betamethaso apply every day 60gm 110.5 Robynjugobed, 04/14/2014 - ne Dipropionate MD [place] 06/16/2014 1-0.05% Cream Cipro 1 po bid 14tabs 462 Ojugobed, 03/14/2014 - 500mg Tablets MD [place] 04/13/2014 Irbesartan 1 po qd 30tabs 401.1 Robynjugobed, 02/06/2014 - 75mg Tablets MD [place] 06/16/2014 Cipro one tab po bid 14tabs 466.0 Sujata Escoto, 07/14/2013 - 250mg Tablets for 7 days [employer] 02/04/2014 Diflucan 1 po qd 2tabs 466.0 Sujata Escoto, 07/14/2013 - 150mg Tablets [employer] 02/04/2014 Prednisone 4 tabs for 3 30tabs 466.0 Sujata Escoto, 07/14/2013 - 10mg Tablets days, 3 tabs for [employer] 02/06/2014 3 days, 2 tabs for 3 days, and 1 tab for 3 days Albuterol Sulfate one via neb 1box J45.40 Zoey, 07/07/2013 - 0.63mg/3ML every 4-6 hours MD Catie 06/27/2016 Nebulizer as needed for sob/coughing. J45.901 Vitamin D one po q week 15caps 268.9 Jhonatan, 11/30/2011 - 34502Iknr MD Cindy 07/18/2012 Capsules Omeprazole 1 po qd 90caps 530.81 Jhonatan, 11/29/2011 - 40mg MD Cindy 07/18/[address] SANTOS Please Place 401.1 Jhonatan, 11/23/2011 - MD Cindy 02/17/2013 Prednisone 1 po bid 10tabs Robynjugobed, 09/01/2011 - 20mg MD [place] 09/04/2011 Tablets Diflucan 1 po qd 2tabs Robynjugobed, 08/08/2011 - 150mg MD Cindy 11/22/2011 Tablets Metoprolol Tartrate one po qd 90tabs 785.0 Idania Piedra 08/08/2011 - e, [employer] 08/21/2011 25mg Tablets Flonase one spray per nare 1units 461.0 Idania Piedra 08/08/2011 - 50mcg/Act bid e, [employer] 11/22/2011 Suspension Doxycycline Hyclate 1 po bid 28caps 461.0 Idania Piedra 08/08/2011 - e, [employer] 08/21/2011 100mg Capsules Melatonin 2 tabs po [...] qd 90caps 530.81 Jhonatan, 06/16/2010 - 60mg Cindy, MD 11/29/[address] Nam Mendez, 05/19/2010 - MD Cindy 04/03/2011 90mcg/Act Aerosol Vitamins For Hair one po qd 704.9 Ojugbeledison, 05/19/2010 - MD Cindy 08/07/2011 Tablets Fluconazole Take 1 tablet by 4tabs E930.9 Jhonatan, 04/21/2010 - 150mg mouth daily MD Cindy 04/14/2010 Tablets Fluconazole one po prn 4tabs E930.9 Robynjugbeledison, 04/21/2010 - 150mg MD Cindy 04/14/2010 Tablets Diclofenac Sodium 1 tab po 2 or 3 30tabs 724.2 Robynjugobed, 11/09/2009 - times daily MD Cindy 08/07/2011 50mg Tablets Ibuprofen 1 po tid prn 90tabs Jhonatan, 09/13/2009 - 800mg MD Cindy 09/14/2010 Tablets Omron Micro Air Use q4h prn 1units Maggie Chaney MD 05/24/2009 - Vibrating Mesh 04/03/2011 Nebulizer #[id number] Nystatin apply liberally to 60g Maggie Chaney MD 05/14/2009 - affected area 07/20/2009 [id number]/GM Cream qd-bid prn Avelox 1 tab po daily x 10 10tabs 462 Robynjugbeledison, 05/07/2009 - 400mg Tablets days MD Cindy 06/14/2009 Diflucan 1 po qd 2tabs Ojugbeledison, 05/07/2009 - 150mg MD Cindy 05/07/2009 Tablets Prednisone 1 po tid x 3d, then 20tabs 493.90 Maggie Chaney MD 04/23/2009 - 20mg 1 bid x 3d, then 05/06/2009 Tablets 1 qd x 3d, then 1/2 qd x 4d Prednisone take as directed 59tabs 493.90 Robynjugobed, 04/22/2009 - 10mg MD Cindy 04/23/2009 Tablets [...] sciatica Voltaren apply to affected 5tubes 729.4 Robynjugbeledison, 01/22/2009 - 1% Gel area qid MD [place]ne 04/12/2009 Nabumetone 1 po bid 60tabs Jhonatan, 01/21/2009 - 750mg MD [place] 04/12/2009 Tablets Voltaren apply to affected 1tube Jhonatan, 01/21/2009 - 1% Gel area cassidyd MD [place] 04/12/2009 Nexium 1qd - take one 30units 530.81 Ojugbeli, 12/16/2008 - 40mg CPDR capsule by mouth [...] Chaney MD 05/04/2008 - 50mg 08/18/2008 Tablets Hzlulngu-YKM-4 apply 1 patch 12units I10 Jhonatan, 04/08/2008 - transdermally MD [place] 06/27/2016 0.3mg/24HR Patches weekly, remove old Weekly patch Norvasc 1 po qd 90tabs 401.1 Jhonatan, 03/05/2008 - 10mg Tablets MD [place] 02/04/2014 Albuterol 1 puff qid prn 2units 493.90 Maggie Chaney MD 02/04/2008 - 90mcg/Act 07/21/2013 Aerosol Prednisone 4 po qd x3days, 30tabs Unknown [...] Cindy Mendez, 07/07/2010 Cyanocobalamin To 1000 mcg [id number] Injection Injection Vitamin B-12 Cindy Mendez, 06/30/2010 Cyanocobalamin To 1000 mcg [id number] Injection Injection Vitamin B-12 Cindy Mendez, 06/22/2010 Cyanocobalamin To 1000 mcg [id number] Injection Vitamin B-12 [place] La O PA 06/22/2010 Injection Injection Vitamin B-12 Cindy Mendez, 06/16/2010 Cyanocobalamin To 1000 mcg [id number] Injection Injection Ketorolac Tromethamine Cindy Mendez, 11/09/2009 Per 15 MG (Toradol)[id number] Injection Injection Ketorolac Tromethamine [place] O PA 11/09/2009 Per 15 MG (Toradol)[id number] Injection Inj. Methylprednisolonesoeduardum Maggie Chaney MD 04/19/2009 Succinate 125 MG Im Injection Inj. MethylprednisoloneMaggie Jean MD 04/19/2009 Succinate 125 MG Im Injection Immunizations CPT Code Status Date Vaccine Lot # [id number] Given 05/04/2011 Influenza Split 5yrs and above Afluria [id number] 29492 Given 03/30/2009 Influenza Split 5yrs and above Afluria 62195 Given 03/30/2009 Influenza Split 5yrs and above Afluria [id number] 62306 Given 06/10/2007 Pneumococcal Vaccine 23 valent 84017 Given 06/10/2007 Td&P (Adacel) 21804 Given 03/10/2005 Influenza Split 5yrs and above Afluria 14674 Given 05/03/2004 Influenza Split 5yrs and above Afluria Vital Signs Date Vital Result Comment 11/06/2018 12:02pm BP Systolic 154 mmHg BP [...] H/L Range Note Laboratory test 11/13/2017 [facility] [place] D-Dimer,Sensitive <0.19 mg/L (< 0.50) finding Laboratory test 11/13/2017 [facility] B-Type <pending> finding (315)- - Natriuretic D-Dimer Sensitive <pending> Xray 05/03/2017 [facility] - [place] [facility] 05/24 [phone] Right [place] [address] [phone] BMP W/Egfr 11/14/2016 [facility] [place] Sodium 142 mmol/L (136-145 ) Potassium 4.4 mmol/L (3.6-5.2) Chloride 107 mmol/L (100-108) Co2 26 mmol/L (22-31) Anion Gap 9 mmol/L (7-16) Urea Nitrogen 13 mg/dL (7-24) Creatinine 0.68 mg/dL (0.60-1.00) BUN/Creat Ratio 19.1 RATIO (10.0-20.0) Glucose 75 mg/dL (70-99) Calcium 8.9 mg/dL (8.4-10.2) GFR >60 ml/min/1.73m2 (>59) GFR ( Amer) >60 ml/min/1.73m2 (>59) GFR Interpretation <SEE NOTE> 1 BMP W/Egfr 10/10/2016 [facility] [place] Sodium 137 mmol/L (136-145) Potassium 3.5 mmol/L Low (3.6-5.2) Chloride 102 mmol/L (100-108) Co2 27 mmol/L (22-31) Anion Gap 8 mmol/L (7-16) Urea Nitrogen 14 mg/dL (7-24) Creatinine 0.77 mg/dL (0.60-1.00) BUN/Creat Ratio 18.2 RATIO (10.0-20.0) Glucose 89 mg/dL (70-99) Calcium 9.2 mg/dL (8.4-10.2) GFR >60 ml/min/1.73m2 (>59) GFR ( Amer) >60 ml/min/1.73m2 (>59) GFR Interpretation <SEE NOTE> 2 BMP W/Egfr 08/22/2016 [facility] [place] Sodium 139 mmol/L (136-145) Potassium 3.3 mmol/L [...] <SEE NOTE> 3 BMP W/Egfr 08/10/2016 [facility] [place] Sodium 140 mmol/L (136-145) Potassium 3.3 mmol/L Low (3.6-5.2) Chloride 103 mmol/L (100-108) Co2 30 mmol/L (22-31) Anion Gap 7 mmol/L (7-16) Urea Nitrogen 18 mg/dL (7-24) Creatinine 0.82 mg/dL (0.60-1.00) BUN/Creat Ratio 22.0 RATIO High (10.0-20.0) Glucose 88 mg/dL (70-99) Calcium 8.4 mg/dL (8.4-10.2) GFR >60 ml/min/1.73m2 (>59) GFR ( Amer) >60 ml/min/1.73m2 (>59) GFR Interpretation <SEE NOTE> 4 Laboratory 07/18/2016 [facility] [place] TSH,Ultrasensitive @ 0.860 (0.360- 4.170) test finding mIU/L CBC W/Auto 07/18/2016 [facility] [place] WBC 15.3 High (4.1-11.0) Diff & PLT 10*3/uL RBC 5.06 10*6/uL (4.00-5.40) HGB 14.9 g/dL (12.0-16.0) HCT 45.2 % (36.0-47.0) MCV 89.5 fL (80.0-95.0) MCH 29.5 pg (27.0-32.0) MCHC 33.0 g/dL (32.0-36.0) RDW 13.8 % (10.5-14.5) PLT 407 10*3/uL (150-450) MPV 7.6 fL (7.1-10.7) Neut % 80.7 % High (35.0-75.0) Lymph % 13.2 % Low (16.0-52.0) [place] % 5.1 % (0.0-8.0) Eos % 0.5 % (0.0-5.0) Baso % 0.5 % (0.0-4.0) Neut # 12.4 10*3/uL High (1.8-7.7) Lymph # 2.0 10*3/uL (1.2-4.8) [place] # 0.8 10*3/uL (0.0-0.8) Eos # 0.1 10*3/uL (0.0-0.5) Baso # 0.1 10*3/uL (0.0-0.2) CMP W/Egfr 07/18/2016 [facility] [place] Sodium 140 mmol/L (136-145) Potassium 3.7 mmol/L [...] <SEE NOTE> 6 Lipid Panel 07/18/2016 [facility] [place] Cholesterol @ 174 mg/dL (0-200) Triglyceride @ 150 mg/dL (30-200) 7 HDL Cholesterol @ 47 mg/dL (>40) 8 Chol/HDL Ratio 3.7 RATIO 9 LDL Chol (Calc) 97 mg/dL (<130) 10 Xray 07/11/2016 [facility] VQ scan today 12:15pm [address] [place] [address], [address] [place], [place] [id number] [phone] Laboratory test 06/27/2016 [facility] [place] Cytology LABORATORY 11 finding Fluid ALLIA <SEE Specimen NOTE> Urine Culture SPECIMEN DESCRI> 12 Bilirubin Urine NEGATIVE (Neg) Urinalysis W/Micro 06/27/2016 [facility] [place] Color MIKAEL Appearance TURBID Spec Grav Urine [...] 08/18/2014 Glucose Serum 91 finding Xray 06/16/2014 [facility] printed for [phone] Xray 03/14/2014 [facility] [address]- ct of 03/27 @ 9+ [phone] chest w/o HPV Dna Hig/Low 10/28/2010 [facility] Low Risk NOT DETECTED Not Detected 13 Risk (Thinprep) [phone] High Risk NOT DETECTED Not Detected 14 Vitamin D, 25 10/06/2010 [facility] Vitamin D,25-Oh,Total 27 ng/mL Low 30-100 Hydroxy [phone] Vitamin D,25-Oh,D3 27 ng/mL Vitamin D,25-Oh,D2 <4 ng/mL 15 CBC W/ Diff & PLT 10/06/2010 [facility] WBC 8.5 thous/L 3.8-10.8 [phone] RBC 4.65 mill/L 3.80-5.10 Hemoglobin 13.9 g/dL 11.7-15.5 Hematocrit 42.3 % 35.0-45.0 MCV 91.2 FL 80.0-100.0 MCH 29.9 pg 27.0-33.0 MCHC 32.8 g/dL 32.0-36.0 RDW 14.6 % 11.0-15.0 Platelet Count 366 thous/L 140-400 Neutrophils,Absolute 5290 cells/L [phone] Lymphocytes,Absolute 2350 cells/L 850-3900 Monocytes,Absolute 620 cells/L 200-950 Eosinophils,Absolute 180 cells/L 15-500 Basophils,Absolute 30 cells/L 0-200 Total Neutrophils,% 62 % 38-80 Total Lymphocytes,% 28 % 15-49 Monocytes,% 7 % 0-13 Eosinophils,% 2 % 0-8 Basophils,% 0 % 0-2 Laboratory test finding 10/06/2010 [facility] T3,Free 3.4 pg/mL 2.3-4.2 [phone] Magnesium 2.0 mg/dL 1.5-2.5 Vitamin B12/Folate 10/06/2010 [facility] Vitamin B12,Serum 700 pg/mL 200- 1100 Panel Serum [phone] Folate,Serum 16.8 NG/ML 16 Laboratory test finding 10/06/2010 [facility] Vitamin A 49 g/dL 38-98 [phone] Zinc 97 g/dL 60-130 TSH & Free T4 10/06/2010 [facility] TSH,3RD 2.27 mIU/L 0.40-4.50 17 (Centrex) [phone] Generation T4,Free 1.2 ng/dL 0.8-1.8 Lipid Panel 04/14/2010 [facility] Cholesterol 165 mg/dL 125-200 18 [phone] HDL Cholesterol 42 mg/dL Low > Or=46 Triglycerides 149 mg/dL <150 Cholesterol/HDL Ratio 3.9 < Or=5.0 LDL Chol,Calculated 93 mg/dL <130 19 Laboratory test 04/14/2010 [facility] TSH Autoantibody NEGATIVE Negative finding [phone] Vitamin D, 25 04/14/2010 [facility] Vitamin 22 ng/mL Low 30-100 Hydroxy [phone] D,25-Oh,Total Vitamin D,25-Oh,D3 22 ng/mL Vitamin D,25-Oh,D2 <4 ng/mL 20 Comp Metabolic Panel 04/14/2010 [facility] Sodium 138 mmol/L 135-146 [phone] Potassium 4.3 mmol/L 3.5-5.3 Chloride 104 mmol/L [...] 2.2-3.9 A/G Ratio 1.4 1.0-2.1 Egfr Non-Afr. Omani >60 ML/MIN/1.73M2 > Or=60 Egfr >60 ML/MIN/1.73M2 > Or=60 CBC W/ Diff & PLT 04/14/2010 [facility] WBC 9.7 thous/L 3.8-10.8 [phone] RBC 4.85 mill/L 3.80-5.10 Hemoglobin 14.5 g/dL 11.7-15.5 Hematocrit 43.8 % 35.0-45.0 MCV 90.4 FL 80.0-100.0 MCH 29.9 pg 27.0-33.0 MCHC 33.1 g/dL 32.0-36.0 RDW 13.6 % 11.0-15.0 Platelet Count 376 thous/L 140-400 Platelet Sufficiency NORMAL Normal Neutrophils,Absolute 6540 cells/L [phone] Lymphocytes,Absolute 2280 cells/L 850-3900 Monocytes,Absolute 690 cells/L 200-950 Eosinophils,Absolute 160 cells/L 15-500 Basophils,Absolute 40 cells/L 0-200 Total Neutrophils,% 68 % 38-80 Total Lymphocytes,% 23 % 15-49 Monocytes,% 7 % 0-13 Eosinophils,% 2 % 0-8 Basophils,% 0 % 0-2 RBC Morphology NORMAL Laboratory test 06/30/2009 [facility] Ige,Serum 53 kU/L <115 finding [phone] CBC W/ Diff & PLT 06/30/2009 [facility] WBC 9.9 thous/L 3.8-10.8 [phone] RBC 4.60 mill/L 3.80-5.10 Hemoglobin 13.9 g/dL 11.7-15.5 Hematocrit 41.8 % 35.0-45.0 MCV 90.8 FL 80.0-100.0 MCH 30.3 pg 27.0-33.0 MCHC 33.3 g/dL 32.0-36.0 RDW 13.4 % 11.0-15.0 Platelet Count 381 thous/L 140-400 Platelet Sufficiency NORMAL Normal Neutrophils,Absolute 6560 cells/L [phone] Lymphocytes,Absolute 2550 cells/L 850-3900 Monocytes,Absolute 670 cells/L 200-950 Eosinophils,Absolute 100 cells/L 15-500 Basophils,Absolute 40 cells/L 0-200 Total Neutrophils,% 66 % 38-80 Total Lymphocytes,% 26 % 15-49 Monocytes,% 7 % 0-13 Eosinophils,% 1 % 0-8 Basophils,% 0 % 0-2 RBC Morphology NORMAL Alpha-1 06/30/2009 [facility] Cfbsy-2-Ctxbbyvmhsp 152 83-199 Antitrypsin,QN/Mut,[place] [phone] mg/dL Alpha-1 Antitrypsin Mutat SEE BELOW 22 Clinical Indication 786.2/493.90 Referring Physician MAGGIE CHANEY Laboratory test 06/30/2009 [facility] Dgtao-2-Kojlutoxlyx 149 mg/dL 83-199 finding [phone] Culture,Throat 05/07/2009 [facility] 23 [phone] -THRO <SEE NOTE> Final Report (SEE NOTE) 24 Tissue Pathology 05/07/2009 [facility] Results (SEE NOTE) 25 [phone] Lipid Panel 04/14/2009 [facility] Cholesterol 156 mg/dL 125-200 [phone] HDL Cholesterol 49 mg/dL > Or=46 Triglycerides 81 mg/dL <150 Cholesterol/HDL Ratio 3.2 < Or=5.0 LDL Chol,Calculated 91 mg/dL <130 26 TSH & T4,Free 04/14/2009 [facility] TSH,3RD Generation 0.51 mU/L 0.40-4.50 27 [phone] T4,Free 1.2 ng/dL 0.8-1.8 Vitamin D, 25 04/14/2009 [facility] Vitamin D,25-Oh,Total 22 ng/mL 20-100 Hydroxy [phone] Vitamin D,25-Oh,D3 22 ng/mL Vitamin D,25-Oh,D2 <4 ng/mL 28 Laboratory test 04/14/2009 [facility] Hemoglobin A1c 5.6 % <6.0 finding [phone] CMP W/GFR 04/14/2009 [facility] Sodium 140 mmol/L 135-146 [phone] Potassium 4.3 mmol/L 3.5-5.3 Chloride 104 mmol/L [...] 2.2-3.9 A/G Ratio 1.3 1.0-2.1 Egfr Non-Afr. Omani >60 ML/MIN/1.73M2 > Or=60 Egfr >60 ML/MIN/1.73M2 > Or=60 CBC W/ Diff & PLT 04/14/2009 [facility] WBC 9.9 thous/L 3.8-10.8 [phone] RBC 4.70 mill/L 3.80-5.10 Hemoglobin 14.6 g/dL 11.7-15.5 Hematocrit 43.1 % 35.0-45.0 MCV 91.6 FL 80.0-100.0 MCH 31.1 pg 27.0-33.0 MCHC 34.0 g/dL 32.0-36.0 RDW 13.4 % 11.0-15.0 Platelet Count 400 thous/L 140-400 Platelet Sufficiency NORMAL Normal Neutrophils,Absolute 8310 cells/L High [phone] Lymphocytes,Absolute 1340 cells/L 850-3900 Monocytes,Absolute 260 cells/L [...] VERY HIGH > 189 11 LABORATORY [facility]. [address] [place] [address] MISCELLANEOUS CYTOLOGY REPORT Patient Name:KELLI SZYMANSKI Patient :1970 Ordering Physician:TREMAYNE MENDEZ MD Accession Number: [id number] Source of Specimen(s): A: Urine, Voided Clinical [...] Electronically Signed Out By Pavan Underwood MD [facility] Patholo Jd Edwards: Nidhi AGUIAR(ASCP) [facility], [facility] SPECIMEN DESCRIPTION URINE, COLLECTION METHOD NOT SPECIFIED CULTURE RESULTS NO GROWTH REPORT STATUS FINAL 06/29/2016 13 Tested for Low Risk HPV Types 6,11,42,43,44. The analytical performance characteristics of this assay, when used to test Surepath(R) or vaginal specimens, have been determined by [facility]. Methodology: Hybrid Capture with Signal Amplification. Performed at [facility] [address] [place] [address] 14 Tested for High Risk HPV Types 16,18,31,33,35,39,45,51,52, 56,58,59,68. The analytical performance characteristics of this assay, when used to test Surepath(R) or vaginal specimens, have been determined by [facility]. Methodology: Hybrid Capture with Signal Amplification. Performed at [facility] [address] [place] [address] 15 25-OHD3 indicates both endogenous production and [...] the PI*Z and PI*S alleles in the dbevi-8-uopnquumlvv (PI) gene (genotype PI*M/PI*M). This negative result does not rule out the presence of other mutations within the PI gene or other causes of wjqqt-5-hezweqwrloe deficiency. Therefore, these results should be interpreted in the context of the individual's clinical presentation, and other laboratory tests such as measurement of serum atfgm-3-ggtdlabglus levels. Laboratory results and submitted clinical information reviewed by Merry Ng, Ph.D., [facility], [facility] Iswvo-8-vzvautclvos deficiency is a relatively common autosomal recessive condition. The two most common deficiency alleles in the bqmja-4-eevhpjduzpm gene (protease inhibitor locus, PI) are designated [...] smoke. It should be noted that serum cmpsi-6-shfvihjzqrc levels can be induced by a wide variety of conditions that include , infection, numerous inflammatory conditions, cancer, and liver disease. Levels of egswl-8-xinqpnrznti may be reduced by other conditions. Therefore, immunological and functional determinations of serum xzbmg-0-cuoxefxsqni levels may not correlate with the individual's PI genotype. The PI*Z, PI*S, and PI*M alleles are detected by multiplex polymerase chain reaction (PCR) amplification of specific regions of the PI gene, followed by restriction enzyme digestion and capillary electrophoresis. This assay does not test for the presence of other mutations within the wttay-9-lzjjfyowulf gene or non-genetic causes of gqhor-7-ghmoimnsaqw deficiency. Since genetic variation and other factors can affect the accuracy of direct mutation testing, these results should be interpreted in light of clinical and familial data. This test was developed and its performance characteristics have been determined by [facility]. Performance characteristics refer to the analytical performance of the test. 23 RESPIRATORY-THROAT 24 NORMAL OROPHARYNGEAL TRISHA. 25 TISSUE PATHOLOGY REPORT Tissue Pathology Report Status: FINAL Clinical Information and/or Impression: Rash DIAGNOSIS: A) Back : Acute suppurative folliculitis. See comment. 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 PATHOLOGIST: Pavan Arreaga MD, Board Certified in Dermatology and Dermatopathology (electronic signature) For questions regarding this report call Anatomic Pathology at [phone] GROSS DESCRIPTION: A) Specimen is received in formalin, labeled with the patient's name, but no source on the vial and consists of a 0.4 x 0.4 x 0.2 cm. fragment of singletary skin. The surgical margin is inked with blue ink. The specimen is bisected and totally submitted, two pieces in a single cassette. JG:yasemin 05/10/09 Gross Exam(s) performed at: [facility] [employer] [address] [place] [address] Boiler/Chiller Operator: CHRISTOPHER JIMENEZ MD 26 LDL-CHOLESTEROL RISK CATEGORY* [...] SPECIMEN. Procedures Date Code Description Status 07/09/2018 50948 Electrocardiogram Complete Completed 10/22/2017 19837 Oximetry Single Determination Completed 07/03/2017 14343 Oximetry Single Determination Completed 07/03/2017 83036 Electrocardiogram Complete Completed 10/10/2016 00858 Oximetry Single Determination Completed 09/18/2016 [id number] Mammogram Completed 08/22/2016 57627 Oximetry Single Determination Completed 07/11/2016 78715 Oximetry Single Determination Completed 07/04/2016 87276 Oximetry Single Determination Completed 06/27/2016 88672 Electrocardiogram Complete Completed 05/06/2015 39372 Spirometry Completed 05/06/2015 42053 Electrocardiogram Complete Completed 03/14/2014 60570 Oximetry Single Determination Completed 02/06/2014 47994 Electrocardiogram Complete Completed 02/06/2014 40338 Oximetry Single Determination Completed 02/06/2014 43027 Spirometry Completed 07/21/2013 97027 Oximetry Single Determination Completed 02/18/2013 72690 Oximetry Single Determination Completed 10/17/2012 05722 Electrocardiogram Complete Completed 10/17/2012 07565 Pure Tone Hearing Test, Air Completed 10/17/2012 28991 Oximetry Single Determination Completed 10/17/2012 15323 Visual Screening Test Of Visual Acuity, Quantitative, Completed Bilateral 10/17/2012 57725 Spirometry Completed 11/23/2011 33308 Oximetry Single Determination Completed 08/22/2011 04875 Oximetry Single Determination Completed 08/08/2011 82437 Oximetry Single Determination Completed 07/26/2011 11396 Oximetry Single Determination Completed 05/04/2011 68595 Oximetry Single Determination Completed 04/04/2011 38614 Oximetry Single Determination Completed 04/04/2011 74321 Electrocardiogram Complete Completed 04/04/2011 34790 Electrocardiogram Complete Completed 02/28/2011 53899 Oximetry Single Determination Completed 11/22/2010 13955 Visual Field Exam Intermediate, Unilateral Or Completed Bilateral 10/28/2010 41033 Electrocardiogram Complete Completed 09/14/2010 21554 Oximetry Single Determination Completed 07/07/2010 42464 Injection Therapeutic Prophylactic Or Diagnostic Completed 06/30/2010 03268 Injection Therapeutic Prophylactic Or Diagnostic Completed 06/22/2010 91402 Injection Therapeutic Prophylactic Or Diagnostic Completed 06/16/2010 33785 Injection Therapeutic Prophylactic Or Diagnostic Completed 06/16/2010 84403 Oximetry Single Determination Completed 05/20/2010 934691220 Bone Mineral Density Test Completed 11/09/2009 72896 Injection Therapeutic Prophylactic Or Diagnostic Completed 11/09/2009 58387 Oximetry Single Determination Completed 11/09/2009 33634 Oximetry Single Determination Completed 07/20/2009 00366 Oximetry Single Determination Completed 07/20/2009 19741 Oximetry Single Determination Completed 05/07/2009 84602 Oximetry Single Determination Completed 05/07/2009 47371 Oximetry Single Determination Completed 05/07/2009 38415 Biopsy Skin Lesion Single Completed 04/22/2009 26572 Oximetry Single Determination Completed 04/22/2009 21234 Airway Inhalation Treatment Completed 04/19/2009 32886 Aerosol Or Vapor Inhalations Subsequent Completed 04/19/2009 05368 Airway Inhalation Treatment Completed 04/12/2009 99985 Spirometry Completed 07/29/2007 09332 Aerosol Or Vapor Inhalations Initial Completed 07/29/2007 79574 Airway Inhalation Treatment Completed 03/29/2007 16282 Destruction Of Flat Warts Or Molluscum Contagiosum, Completed Milia To 14 03/22/2007 12191 Aerosol Or Vapor Inhalations Initial Completed 03/22/2007 26655 Airway Inhalation Treatment Completed 03/22/2007 14234 Destruction Of Lesions 2-14 Completed 03/22/2007 50790 Destruction Of Lesion First Completed 09/03/2006 61466 Spirometry Completed 05/17/2006 32577 Aerosol Or Vapor Inhalations Initial Completed 05/17/2006 53240 Airway Inhalation Treatment Completed 03/15/2006 34013 Spirometry Completed 11/23/2005 71609 Spirometry Completed 11/23/2005 80907 Electrocardiogram Complete Completed 06/29/2005 06192 Bronchospasm Evaluation Completed 04/04/2004 97852 Aerosol Or Vapor Inhalations Initial Completed 04/04/2004 12718 Airway Inhalation Treatment Completed Encounters Type Date Location Provider Dx Diagnosis Office Visit 11/06/2018 Patel Mendez, I10 Essential (primary) 11:30a Medical MD [place] hypertension J45.998 Other asthma R05 Cough Z68.41 [...] Essential (primary) hypertension Office Visit 07/09/2018 Patel Mendez, Z00.00 Encntr for 1:30p Jovan Moss MD general adult medical exam w/o abnormal findings J45.998 Other asthma I10 Essential (primary) hypertension K21.9 Gastro-esophageal reflux disease without esophagitis Z68.41 Body mass index (BMI) 40.0-44.9, adult Office 07/05/2018 Patel Mendez J45.901 Unspecified Visit 4:30p Jovan Moss MD asthma with (acute) exacerbation Office 06/20/2018 Berta Mendez J03.90 Acute Visit 12:45p Jovan Moss MD tonsillitis, unspecified Office 05/01/2018 Patel Mendez M25.561 Pain in right Visit 11:15a Jovan [...] index (BMI) 37.0-37.9, adult Office Visit 10/10/2016 Paetl Mendez, I10 Essential 10:00a Jovan Moss MD [...] Of Breath Office Visit 09/07/2014 11:45a Patel Castrejon 401.1 Hypertension DANETTE Blair Benign 786.2 Cough Office Visit 08/17/2014 2:00p Patel Castrejon, 401.1 Hypertension DANETTE Blair Benign 719.46 Pain Joint Lower Leg Office Visit 08/10/2014 4:45p Yimi Khan PA 786.2 Cough 401.1 Hypertension Benign Office Visit 07/14/2014 3:15p Yimi Khan PA 786.2 Cough 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 401.1 Hypertension Benign 493.90 Asthma Unspec W/O Status Asthmaticus Office Visit 06/16/2014 11:45a Patel Mendez 786.2 Dasia Moss MD 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 401.1 Hypertension Benign Office [...] 493.90 Asthma Unspec W/O 11:30a 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, [employer] Status Asthmaticus 466.0 Bronchitis Acute 401.1 Hypertension Benign Office Visit 07/14/2013 Patel Escoto, 466.0 Bronchitis Acute 1:30p 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, DIRECT[employer] Office Visit 06/19/2013 Herbert Mendez, 401.1 Hypertension 10:30a Shelia Moss MD V76.10 Screening For Malignant Neoplasm Breast Office Visit 02/18/2013 Patel Mendez, 493.90 Asthma Unspec 3:00p Jovan oMss MD W/O Status Asthmaticus 401.1 Hypertension Benign [...] Acute Maxillary Office Visit 05/04/2011 2:00p Berta Vasquez Liz 401.1 Hypertension Medical Benign 278.00 Obesity Unspec 724.2 Lumbago Office Visit 10/28/2010 2:15p Patel Mendez, 281.1 Vitamin B12 Jovan White MD Deficiency Anemia Other 401.1 Hypertension Benign 780.52 Insomnia Unspecified V70.0 Examination General Medical Routine [facility] 278.01 Obesity Morbid V76.12 Screening Mammogram Malig Paolo Other Office Visit 09/14/2010 LauraKavonMcclellan, 729.2 Neuralgia 1:45p Jovan White MD Neuritis [...] [place], 493.90 Asthma Unspec 2:40p Medical DANETTE Carroll W/O Status Asthmaticus 462 Pharyngitis Acute 782.8 [...] Respiratory Abnormalities Other Office Visit 05/15/2008 Maggie Bear 461.8 Sinusitis Acute 5:45p Jovan MD Other 462 Pharyngitis Acute 388.70 Otalgia & [...] 462 Pharyngitis Acute Plan of Treatment Future Appointment(s):11/29/2018 9:15 am - Tremayne Mendez MD at [facility]07/11/2019 10:30 am - [facility]ne Mendez MD at [facility]11/06/2018 - Tremayne Mendez MDI10 Essential (primary) hypertensionComments:Patient will continues to check her BP for two more nights and If systolic BP is over 150 will increase Doxazosin to 2 tabsFollow up:2 yefjaB55.998 Other asthmaComments:Continue present management.R05 CoughComments: ZfieaajS79.41 Body mass index (BMI) 40.0-44.9, adult
== END 2018-12-01 20:18 | disposition home or self-care (01) ==
LOC: UCCORT 19:23
DX: M79.89 Other specified soft tissue disorders (principal); T44.6X5A Adverse effect of alpha-adrenoreceptor antagonists, initial encounter; Y92.9 Unspecified place or not applicable; H02.843 Edema of right eye, unspecified eyelid; H02.846 Edema of left eye, unspecified eyelid
CPT/HCPCS: 99212; A9270-GY; G0463; J8540

== ENCOUNTER 2019-08-17 11:26 | Emergency (ER) | payer BC ==
--- OUTSIDE RECORDS SUMMARY | 2019-08-17 11:33 | XMS REPORT | Continuity of Care Document ---
:1970 External Reference #:[id number] Author Name Pavan Reed MD (transmitted by agent of provider Eduardo Geiger) Address [address] [place] [id number] Care Team Providers Name Role Phone Cindy Israel MD - Family Care Team Information [employer] Medicine Problems Active Problems Provider Date Localized osteoarthrosis An Centeno MD Onset: 07/09/2014 Localized, primary osteoarthritis of the hand Pavan Reed MD Onset: 03/11 Lateral epicondylitis An Centeno MD Onset: 02/24/2016 Shoulder joint pain An Centeno MD Onset: 02/24/2016 Localized, primary osteoarthritis An Centeno MD Onset: 10/28/2015 Social History Type Date Description Comments Sex Unknown ETOH Use Denies alcohol use Tobacco Use Start: Unknown Patient has never smoked Recreational Drug Use Denies Drug Use Smoking Status Reviewed: 07/15/19 Patient has never smoked Exercise Type/Frequency Exercises regularly Allergies, Adverse Reactions, Alerts Active Allergies Reaction Severity Comments Date Codeine 07/09/2014 Penicillin 07/09/2014 Erythromycin a 07/09/2014 Sulfa Antibiotics 07/09/2014 Protonix 08/06/2014 Nexium generic nexium 09/10/2014 Melatonin 02/24/2016 Beta Adrenergic Blockers 02/24/2016 Medications Active Medications SIG Qnty Indications Ordering Provider Date Amlodipine Besylate 1 po qday Unknown 10mg Tablets Epipen 2-Yrn U Utd Unknown 0.3mg/0.3ML Solution Auto-Inject Nexium 1 by mouth Unknown 40mg Capsules DR everyother day Medications Administered in Office Medication SIG Qnty Indications Ordering Provider Date Celestone 3 mg and 3mg Pavan Reed MD 05/13/2019 Injection Celestone 3 mg and 3mg Pavan Reed MD 05/13/2019 Injection Celestone 3 mg and 3mg Pavan Reed MD 03/11/2019 Injection Immunizations Description No Information Available Vital Signs Date Vital Result Comment 07/15/2019 10:12am Height 65.75 inches 5'5.75" Heart Rate 90 /min BP Systolic 126 mmHg BP Diastolic 80 mmHg Respiratory Rate 18 /min Body Temperature 98.0 F Pain Level 2 05/13/2019 10:39am Height 65.75 inches 5'5.75" Weight 239.50 lb Heart Rate 84 /min BP Systolic 140 mmHg BP Diastolic 92 mmHg Respiratory Rate 14 /min Body Temperature 96.8 F Pain Level 7 BMI (Body Mass Index) 38.9 kg/m2 Results Description No Information Available Procedures Date Code Description Status 05/13/2019 Inject/Drain Joint/Bursa Small W/O US Completed 05/13/201902913 Injection Single Tendon Origin/Insertion Completed 03/11/2019 11550 Inject/Drain Joint/Bursa Small W/O US Completed Medical Devices Description No Information Available Encounters Type Date Location Provider Dx Diagnosis Office Visit 05/13/2019 [facility] Pavan Reed M18.11 Unil primary 10:00a at [place] osteoarth of first carpometacarp joint, r hand M77.02 Medial epicondylitis, left elbow Office Visit 03/11/2019 Cristina Browne M18.11 Unil primary 8:00a Orthopedics at [facility] osteoarth of first [place] carpometacarp joint, r hand Assessments Date Code Description Provider 07/15/2019 M18.11 Unilateral primary osteoarthritis of first Pavan Reed MD carpometacarpal joint, right hand 07/15/2019 M77.02 Medial epicondylitis, left elbow Pavan Reed MD 07/15/2019 M25.562 Pain in left knee Pavan Reed MD 05/13/2019 M18.11 Unilateral primary osteoarthritis of first Pavan Reed MD carpometacarpal joint, right hand 05/13/2019 M77.02 Medial epicondylitis, left elbow Pavan Reed MD 03/11/2019 M18.11 Unilateral primary osteoarthritis of first Pavan Reed MD carpometacarpal joint, right hand Plan of Treatment Future Appointment(s):07/18/2019 10:00 am - Lucho Monson MD at [facility] [place]/15/2019 - Pavan Reed, MDM18.11 Unilateral primary osteoarthritis of first carpometacarpal joint, right handM77.02 Medial epicondylitis, left scantG17.562 Pain in left kneeFollow up:Follow up: will call if pain returns, needs appointment with Dr. Monson for knee Functional Status Description No Information Available Mental Status Description No Information Available Referrals Description No Information Available
--- OUTSIDE RECORDS SUMMARY | 2019-08-17 11:33 | XMS REPORT | Continuity of Care Document ---
:1970 External Reference #:[id number] Author Name Ajay Israel MD Address [address] [place] [address] Problems Active Problems Provider Date Low back pain Ajay Israel MD Onset: 01/22/2009 Sciatica Ajay Israel MD Onset: 01/22/2009 Plantar fascial fibromatosis Ajay Israel MD Onset: 01/22/2009 Asthma without status asthmaticus Ajay Israel MD Onset: 01/22/2009 Insomnia Ajay Israel MD Onset: 01/22/2009 Cobalamin deficiency Cindy Israel MD Onset: 06/16/2010 Essential hypertension Yimi Castrejon PA Onset: 04/23/2015 Social History Type Date Description Comments Sex Unknown ETOH Use Rarely consumes alcohol Recreational Drug Use Denies Drug Use Tobacco Use Reviewed: 03/03/15 Patient has never smoked Smoking Status Reviewed: 07/30/19 Patient has never smoked Exercise Type/Frequency Does [...] 07/26/2011 Esomeprazole Headache and Blurred vision 09/07/2014 Doxazosin swelling 12/02/2018 Medications Active Medications SIG Qnty Indications Ordering Date Provider Pepcid 1 by mouth every 90tabs K21.9 Jhonatan, 07/30/2019 40mg Tablets day MD Ajay Amlodipine Besylate take 1 tablet by 90tabs I10 Jhonatan, 12/10/2018 mouth every day MD Ajay 10mg Tablets Esomeprazole take 1 capsule by 90caps K21.9 Justina, 11/27/2018 Magnesium mouth every day MD Ajay 40mg Capsules Budesonide Use 0.25 ML Via 180units J45.998 [facility] 07/09[facility]2018 Nebulizer Twice MD Ajay 0.25mg/2ML Daily as Needed Suspension Spacer Chamber For use with the 1units J45.901 Jhonatan, 10/10/2016 Inhaler Ventolin Dx erinn.998 MD Ajay Albuterol Sulfate Use 1 Vial Via 150units J45.901 [facility], 06/27/2016 Nebulizer Every 4 MD Ajay (2.5mg/3ML) 0.083% Hours as Needed For Nebulizer Bronchospasm Nebulizer Dx: j45.998 1units K21.9 Justina, 07/16/2014 Device MD Ajay Ventolin HFA 2 puffs as needed 1units J45.20 [facility], 07/14/2013 for sob MD Ajay 108(90Base) mcg/Act Aerosol Epipen 2-Yrn use as directed 3units Jhonatan, MD Ajay 0.3mg/0.3ML Solution Auto-Inject Zyrtec Allergy 1 by mouth every Unknown 10mg day as needed Tablets History Medications Boostrix administer half a 1units Jhonatan, 02/14/2019 - 5-2.5-18.5LF-mcg/0.5 milliliters MD Ajay 05/15/2019 Suspension intramuscularly one time for diphtheria, tetanusand whooping cough prevention Medications Administered in Office Medication SIG Qnty Indications Ordering Provider Date TB Intradermal Test allegra nurse 02/17/2019 Injection TB Intradermal Test Jhonatan, 02/15/2019 Injection MD Ajay Injection Vitamin B-12 Cindy Israel, 07/07/2010 Cyanocobalamin To 1000 mcg MD Injection Injection Vitamin B-12 Cindy Israel, 06/30/2010 Cyanocobalamin To 1000 mcg MD Injection Injection Vitamin B-12 Cindy Israel, 06/22/2010 Cyanocobalamin To 1000 mcg MD Injection Vitamin B-12 [place] PA 06/22/2010 Injection Injection Vitamin B-12 Cindy Israel, 06/16/2010 Cyanocobalamin To 1000 mcg MD Injection Injection Ketorolac Tromethamine Cindy Israel, 11/09/2009 Per 15 MG (Toradol) MD Injection Injection Ketorolac Tromethamine [place] PA 11/09/2009 Per 15 MG (Toradol) Injection Inj. Methylprednisolonesoeduardum Renzo Chaney MD 04/19/2009 Succinate 125 MG Im Injection Inj. Methylprednisolonesodium Renzo Chaney MD 04/19/2009 Succinate 125 MG Im Injection Immunizations CPT Code Status Date Vaccine Lot # [id number] Given 05/04/2011 Influenza Split 5yrs and above Afluria [id number] 12591 Given 03/30/2009 Influenza Split 5yrs and above Afluria 62082 Given 03/30/2009 Influenza Split 5yrs and above Afluria [id number] 89798 Given 06/10/2007 Pneumococcal Vaccine 23 valent 09189 Given 06/10/2007 Td&P (Adacel) 57068 Given 03/10/2005 Influenza Split 5yrs and above Afluria 29025 Given 05/03/2004 Influenza Split 5yrs and above Afluria Vital Signs Date Vital Result Comment 07/30/2019 11:40am BP Systolic 148 mmHg BP Diastolic 74 mmHg Heart Rate 78 /min Respiratory Rate 18 /min O2 % BldC Oximetry 98 % room air 07/16/2019 11:04am BP Systolic 158 mmHg BP Diastolic 60 mmHg Heart Rate 88 /min Body Temperature 98.3 F Respiratory Rate 16 /min Height 64.75 inches 5'4.75" Height in cm's 164.5 cm Results Test Acquired Date Facility Test Result H/L Range Note Laboratory test 07/09/2019 [facility] NT Pro BNP 26 pg/mL (0-125) finding D-Dimer,Sensitive 0.20 mg/L (<0.50) Procedures Date Code Description Status 03/11/2019 80836582 Mammogram Completed 05/20/2010 131896342 Bone Mineral Density Test Completed Medical Devices Description No Information Available Encounters Type Date Location Provider Dx Diagnosis Office Visit 07/16/2019 DANETTE Ceballos R06.02 Shortness of 11:00a Medical breath K21.9 Gastro-esophageal reflux disease without esophagitis I10 Essential (primary) hypertension Z68.39 Body mass index (BMI) 39.0-39.9, adult Office Visit 07/09/2019 Patel Israel J45.998 Other asthma 10:00a Jovan Moss MD K21.9 Gastro-esophageal reflux disease without esophagitis I10 Essential (primary) hypertension R06.02 Shortness of breath Z68.39 Body mass index (BMI) 39.0-39.9, adult Office Visit 05/16/2019 Patel Israel Z12.11 Encounter for 10:45a Jovan Moss MD screening for malignant neoplasm of colon I10 Essential (primary) hypertension K21.9 Gastro-esophageal reflux disease without esophagitis J45.998 Other asthma R05 Cough Office Visit 02/17/2019 11:00a Patel dinh nurse Z11.1 Encounter for Medical screening for respiratory tuberculosis Office Visit 02/15/2019 11:00a Patel Israel Z11.1 Encounter for Jovan Moss screening for MD respiratory tuberculosis Office Visit 02/14/2019 10:00a Patel Israel Z12.31 Encntr screen Medical Ajay mammogram for malignant neoplasm of breast Z13.820 Encounter for screening for osteoporosis I10 Essential (primary) hypertension M25.562 Pain in left knee R05 Cough Z68.39 Body mass index (BMI) 39.0-39.9, adult Assessments Date Code Description Provider 07/30/2019 R06.02 Shortness of breath Ajay Israel MD 07/30/2019 K21.9 Gastro-esophageal reflux disease without Ajay Israel MD esophagitis 07/30/2019 R05 Cough Ajay Israel MD 07/16/2019 R06.02 Shortness of breath Anay Quezada PA 07/16/2019 K21.9 Gastro-esophageal reflux disease without Anay Quezada PA esophagitis 07/16/2019 I10 Essential (primary) hypertension Aany Quezada PA 07/16/2019 Z68.39 Body mass index (BMI) 39.0-39.9, adult DANETTE Clark 07/09/2019 J45.998 Other asthma Ajay Israel MD 07/09/2019 K21.9 Gastro-esophageal reflux disease without Ajay Israel MD esophagitis 07/09/2019 I10 Essential (primary) hypertension Ajay Israel MD 07/09/2019 R06.02 Shortness of breath Ajay Israel MD 07/09/2019 Z68.39 Body mass index (BMI) 39.0-39.9, adult Ajay Israel MD 05/16/2019 Z12.11 Encounter for screening for malignant Ajay Israel MD neoplasm of colon 05/16/2019 I10 Essential (primary) hypertension Ajay Israel MD 05/16/2019 K21.9 Gastro-esophageal reflux disease without Ajay Israel MD esophagitis 05/16/2019 J45.998 Other Ajay Johnson MD 05/16/2019 R05 Cough Ajay Israel MD 02/17/2019 Z11.1 Encounter for screening for respiratory Ajay Israel MD tuberculosis 02/17/2019 Z11.1 Encounter for screening for respiratory allegra nurse tuberculosis 02/15/2019 Z11.1 Encounter for screening for respiratory Ajay Israel MD tuberculosis 02/14/2019 Z12.31 Encounter for screening mammogram for Ajay Israel MD malignant neoplasm of breast 02/14/2019 Z13.820 Encounter for screening for osteoporosis Ajay Israel MD 02/14/2019 I10 Essential (primary) hypertension Ajay Israel MD 02/14/2019 M25.562 Pain in left knee Ajay Israel MD 02/14/2019 R05 Cough Ajay Israel MD 02/14/2019 Z68.39 Body mass index (BMI) 39.0-39.9, adult Ajay Israel MD Plan of Treatment Future Appointment(s):09/16/2019 11:15 am - Aj[facility] MD at [facility]07/30/2019 - Ajay Israel, MDR06.02 Shortness of breathComments:Encouraged to keep stress test appointmentFollow up:2 kckvovB05.9 Gastro-esophageal reflux disease without esophagitisNew Medication: Pepcid 40 mg - 1 by mouth every dayComments:Increase Pepcid to 40mgFollow up:2 [id number] CoughComments:Increase Pepcid to 40mg Functional Status Functional Condition Comment Date Status Contacts Active Glasses Active Mental Status Description No Information Available Referrals Refer to Reason for Referral Status Appt Date Cardiovascular Group Urgent Please- Eval of BAURTO and Chest tightness Sent [address] [place] [address] [phone] Cardiovascular Group Refer to get a nuclear stress test for Closed evaluation of SOB [address] [place] [address] [phone]
--- OUTSIDE RECORDS SUMMARY | 2019-08-17 11:33 | XMS REPORT | Summary of Care ---
:1970 Author Organization [facility] Address [address] [place] [address] Care Team Providers Name Role Phone Anay Quezada Primary Care Provider Reason for Visit Reason Comments Echo Stress Test Diagnostic Medical (Routine) Status Reason Specialty Diagnoses / Referred By Referred To Procedures Contact Contact Authorized Diagnoses Chest tightness ABURTO (dyspnea on exertion) Stephen Carrera [facility] Procedures Echocardiogram exercise stress test M, DO OFFICE [address] [place] [id number] Email: [email or web address] Encounter Details Date Type Department Care Team Description 08/13/2019 Procedure visit [facility] Isaias Carrera; Cardiovascular Group Stephen Erwin DO ABURTO (dyspnea on exertion); [address] Essential [place] [address] [place] [address] Allergies Active Allergy Reactions Severity Noted Date Comments Dillon Inhibitors 07/17/2019 Amoxicillin 07/17/2019 Sulfamethoxazole-Trimethoprim 07/17/2019 Codeine 07/17/2019 Doxazosin 07/17/2019 Enalapril 07/17/2019 Erythromycin 07/17/2019 Macrolides And Ketolides 07/17/2019 Melatonin 07/17/2019 Penicillins 07/17/2019 Phentermine 07/17/2019 Pantoprazole Sodium 07/17/2019 Sulfa Antibiotics 07/17/2019 documented as of this encounter (statuses as of 08/13/2019) Medications Medication Sig Dispensed Refills Start Date End Date Status amlodipine (NORVASC) Take 10 mg by mouth 0 Active 10 MG tablet daily. Albuterol (VENTOLIN Inhale into the 0 Active IN) lungs as needed. Esomeprazole Take 40 mg by mouth 0 Active Magnesium 40 MG Oral every morning before Capsule Delayed breakfast Release (NEXIUM) Budesonide 0.25 Take 0.25 mg by 0 Active MG/2ML Inhalation nebulization Two Suspension times daily as (PULMICORT) needed EPINEPHrine 0.3 Inject 0.3 mg into 0 Active MG/0.3ML Injection the muscle as needed Solution Auto-injector (EPIPEN 2-IGNACIO) Cetirizine HCl 10 MG Take 10 mg by mouth 0 Active Oral Tablet (ZYRTEC) daily as needed for Allergies documented as of this encounter (statuses as of 08/13/2019) Active Problems Problem Noted Date Cough 07/18/2019 Chest tightness 07/18/2019 Essential hypertension 07/18/2019 Asthma documented as of this encounter (statuses as of 08/13/2019) Social History Tobacco Use Types Packs/Day Years Used Date Never Smoker Smokeless Tobacco: Never Used Alcohol Use Drinks/Week oz/Week Comments Yes rarely Sex Assigned at Date Recorded Not on file Job Start Date Occupation Industry Not on file Not on file Not on file Travel History Travel Start Travel End No recent travel history available. documented as of this encounter Last Filed Vital Signs Not on filedocumented in this encounter Plan of Treatment Health Maintenance Due Date Last Done Comments MMR Vaccines (1 of 1 - Standard 01/22/1969 series) Varicella Vaccines (1 of 2 - 01/22/1969 2-dose childhood series) Pneumococcal Vaccine: Pediatrics 01/22/1974 (0 to 5 Years) and At-Risk Patients (6 to 64 Years) (1 of 1 - PPSV23) DTaP,Tdap,and Td Vaccines (1 - 01/22/1975 Tdap) HIV Screening 01/22/1981 Cervical Cancer Screening 5 years 01/22/1989 Breast Cancer Screening 2 years 01/22/2018 Colon Cancer Screening 10 yrs 01/22/2018 Influenza Vaccine 03/04/2019 Pneumococcal Vaccine: 65+ Years (1 01/22/2033 of 2 - PCV13) HIB Vaccines Aged Out No longer eligible based on patient's age to complete this topic Hepatitis A Vaccines Aged Out No longer eligible based on patient's age to complete this topic Hepatitis B Vaccines Aged Out No longer eligible based on patient's age to complete this topic IPV Vaccines Aged Out No longer eligible based on patient's age to complete this topic documented as of this encounter Results Not on filedocumented in this encounter Visit Diagnoses Diagnosis Chest tightness Other chest pain ABURTO (dyspnea on exertion) Other dyspnea and respiratory abnormality Essential hypertension Unspecified essential hypertension documented in this encounter
--- OUTSIDE RECORDS SUMMARY | 2019-08-17 11:33 | XMS REPORT | Continuity of Care Document ---
:1970 External Reference #:[id number] Author Name Ajay Israel MD Address [address] [place] [address] Problems Active Problems Provider Date Low back [...] Patient has never smoked Smoking Status Reviewed: 07/09/19 Patient has never smoked Exercise Type/Frequency Does [...] Medications SIG Qnty Indications Ordering Date Provider Amlodipine Besylate take 1 tablet by 90tabs I10 Jhonatan, 12/10/2018 mouth every day MD Ajay 10mg Tablets Clotrimazole/Betame apply every day 45gm R21 Jhonatan, 12/03/2018 thamassimo Moss MD Dipropionate 1-0.05% Cream Esomeprazole take 1 capsule by 90caps K21.9 Jhonatan, 11/27/2018 Magnesium mouth every day MD Ajay 40mg Capsules DR Budesonide Use 0.25 ML Via 180units J45.998 [facility], 07/09/2018 Nebulizer Twice MD Ajay 0.25mg/2ML Daily as Needed Suspension Spacer Chamber For use with the 1units J45.901 Jhonatan, 10/10/2016 Inhaler Ventolin Dx [email or web address] MD Ajay Albuterol Sulfate Use 1 Vial Via 150units J45.901 Jhonatan, 06/27/2016 Nebulizer Every 4 MD Ajay (2.5mg/3ML) 0.083% Hours as Needed For Nebulizer Bronchospasm Nebulizer Dx: j45.998 1units K21.9 Jhonatan, 07/16/2014 Device MD Ajay Ventolin HFA 2 puffs as needed 1units J45.20 Jhonatan, 07/14/2013 for sob MD Ajay 108(90Base) mcg/Act Aerosol Epipen 2-Yrn use as directed 3units Jhonatan, MD Ajay 0.3mg/0.3ML Solution Auto-Inject Zyrtec Allergy 1 by mouth every Unknown 10mg day as needed Tablets Prednisone 1 tab by mouth x 1 Unknown 20mg week, decrease to Tablets 10 mg x 3days, then decrease to 5 mg x 3 days, then 5 mg qod x 3 days . Pepcid one per day Unknown 20mg Tablets History Medications Boostrix administer half a [...] 11/09/2009 Per 15 MG (Toradol) Injection Inj. Methylprednisolonesodium Renzo Chaney MD 04/19/2009 Succinate 125 MG Im Injection Inj. Methylprednisolonesodium Renzo Chaney MD 04/19/2009 Succinate 125 MG Im Injection Immunizations CPT Code Status Date Vaccine Lot # [id number] Given 05/04/2011 Influenza Split 5yrs and above Afluria [id number] Given 03/30/2009 Influenza Split 5yrs and above Afluria 12883 Given 03/30/2009 Influenza Split 5yrs and above Afluria [id number] 82474 Given 06/10/2007 Pneumococcal Vaccine 23 valent 15428 Given 06/10/2007 Td&P (Adacel) 26074 Given 03/10/2005 Influenza Split 5yrs and above Afluria 91434 Given 05/03/2004 Influenza Split 5yrs and above Afluria Vital Signs Date Vital Result Comment 07/09/2019 10:35am BP Systolic 136 mmHg BP Diastolic 92 mmHg Heart Rate 112 /min Body Temperature 97.7 F Respiratory Rate 22 /min Weight 234.00 lb Weight 106.142 kg Height 64.75 inches 5'4.75" Height in cm's 164.5 cm BMI (Body Mass Index) 39.2 kg/m2 O2 % BldC Oximetry 97 % room ai r 05/16/2019 10:49am BP Systolic 148 mmHg BP Diastolic 92 mmHg Heart Rate 80 /min Body Temperature 98.7 F Respiratory Rate 18 /min Height 64.75 inches 5'4.75" Height in cm's 164.5 cm O2 % BldC Oximetry 97 % room air Results Test Acquired Date Facility Test Result H/L Range Note Laboratory test 07/09/2019 [facility] NT Pro BNP 26 pg/mL (0-125) finding D-Dimer,Sensitive 0.20 mg/L (<0.50) Procedures Date Code Description Status 03/11/2019 67811863 Mammogram Completed 05/20/2010 419307920 Bone Mineral Density Test Completed Medical Devices Description No Information Available Encounters Type Date Location Provider Dx Diagnosis Office Visit 05/16/2019 Patel Israel Z12.11 Encounter for 10:45a Jovan Moss MD screening for malignant neoplasm of colon I10 Essential (primary) hypertension K21.9 Gastro-esophageal reflux disease without esophagitis J45.998 Other asthma R05 Cough Office Visit 02/17/2019 11:00a Patel dinh nurse Z11.1 Encounter for Medical screening for respiratory tuberculosis Office Visit 02/15/2019 11:00a Patel Israel Z11.1 Encounter for Medical Ajay, screening for MD respiratory tuberculosis Office Visit 02/14/2019 10:00a Patel Israel Z12.31 Encntr screen Medical Ajay, mammogram for malignant neoplasm of breast Z13.820 Encounter for screening for osteoporosis I10 Essential (primary) hypertension M25.562 Pain in left knee R05 Cough Z68.39 Body mass index (BMI) 39.0-39.9, adult Assessments Date Code Description Provider 07/09/2019 J45.998 Other asthma Ajay Israel MD [...] Ajay Israel MD esophagitis 05/16/2019 J45.998 Other asthma Ajay Israel MD 05/16/2019 R05 Cough Ajay Israel MD [...] Ajay Israel MD Plan of Treatment Future Appointment(s):07/16/2019 11:00 am - DANETTE Clark at [facility]08/15/2019 10:30 am - Ajay Israel MD at [facility]07/09/2019 - Ajay Israel MDJ45.998 Other asthmaComments: Continue present management.K21.9 Gastro-esophageal reflux disease without esophagitisComments:Continue present management.I10 Essential (primary) hypertensionComments:Continue present [id number] Shortness of breathComments:Check BNP and D-Dimer Refer to get nuclear stress testReferral: [facility],Follow up:1 week with BAUTISTA Clark68.39 Body mass index (BMI) 39.0-39.9, adult Functional Status Functional Condition Comment Date Status Contacts Active Glasses Active Mental Status Description No Information Available Referrals Refer to Reason for Referral Status Appt Date [facility] Refer to get a nuclear stress test for Created 00/ 0000 evaluation of SOB [address] [place] [address] [phone]
[2019-08-17 12:46] VITALS: BP 136/73
[2019-08-17 13:01] LABS: Influenza A Molecular POSITIVE (Negative)
--- NOTE | 2019-08-17 13:16 | UC ---
FLU HPI - HPI Summary HPI Summary: 49-year-old female with history of asthma presents with sudden onset of general malaise, fatigue, body aches, fever, chills, mild shortness of breath, and a nonproductive cough yesterday. Patient reports diagnosed with pneumonia back in June and completed a course of doxycycline followed by azithromycin. States she has had a cough since that time and does not notice any change with the onset of her recent symptoms. States she is routinely using her rescue inhaler. No recent travel. She did not receive her flu shot this season. Denies nasal congestion, runny nose, ear pain, dysphagia, sore throat, chest pain, abdominal pain, nausea, vomiting, or diarrhea. - History of Current Complaint Chief Complaint: UCRespiratory Stated Complaint: FLU LIKE ILLNESS Time Seen by Provider: 08/17/19 12:49 Hx Obtained From: Patient Hx Last Menstrual Period: 07/31/16 Pain Intensity: 6 - Allergy/Home Medications Allergies/Adverse Reactions: Allergies Allergy/AdvReac Type Severity Reaction Status Date / Time captopril Allergy Severe Difficulty Verified 12/01/18 19:28 Breathing codeine Allergy Severe Swelling Verified 12/01/18 19:28 enalapril Allergy Severe Difficulty Verified 12/01/18 19:28 Breathing melatonin Allergy Severe Swelling Verified 12/01/18 19:28 Sulfa (Sulfonamide Allergy Severe Swelling Verified 12/01/18 19:28 Antibiotics) pantoprazole Allergy Intermediate Rash Verified 12/01/18 19:28 Penicillins Allergy Unknown both Verified 12/01/18 19:28 parents allergic MIGUEL Inhibitors Allergy Unknown Verified 08/17/19 12:48 Reaction Details amoxicillin [From Augmentin] Allergy Unknown Verified 08/17/19 12:48 Reaction Details clavulanic acid Allergy Unknown Verified 08/17/19 12:48 [From Augmentin] Reaction Details doxazosin Allergy Unknown Verified 08/17/19 12:48 Reaction Details levofloxacin Allergy Unknown Verified 08/17/19 12:48 Reaction Details Macrolide Antibiotics Allergy Difficulty Verified 12/01/18 19:28 Breathing erythromycin base AdvReac GI Upset Verified 12/01/18 19:28 macrolides and ketolides Allergy Severe Difficulty Uncoded 12/01/18 19:28 Breathing Home Medications: Home Medications Albuterol 2.5MG/3ML (0.083%)* [Ventolin 2.5 MG/3 ML NEB.SALLY*] 2.5 mg NEB Q6H PRN 07/04/14 [History Confirmed 08/17/19] Albuterol Sulfate [Ventolin Hfa] 1 - 2 puff INH Q4H PRN 07/04/14 [History Confirmed 08/17/19] Esomeprazole Magnesium [Nexium] 40 mg PO DAILY PRN 07/04/14 [History Confirmed 08/17/19] Benzonatate CAP* [Tessalon 100 MG CAP*] 100 mg PO TID PRN #21 cap 08/17/19 [Rx] Famotidine 40 mg PO DAILY 08/17/19 [History Confirmed 08/17/19] Oseltamivir CAP* [Tamiflu CAP*] 75 mg PO BID #10 cap 08/17/19 [Rx] amLODIPine TAB* [Norvasc 5 mg TAB*] 10 mg PO DAILY 08/17/19 [History Confirmed 08/17/19] predniSONE [Prednisone 20 MG TAB] 40 mg PO DAILY 5 Days #10 tablet 08/17/19 [Rx] PMH/Surg Hx/FS Hx/Imm Hx Cardiovascular History: Hypertension Respiratory History: Asthma GI/ History: Gastroesophageal Reflux Other History Of: Negative For: HIV, Hepatitis B, Hepatitis C, Anticoagulant Therapy - Surgical History Surgical History: Yes Surgery Procedure, Year, and Place: ORAL SURGERY - Family History Known Family History: Positive: Cardiac Disease, Hypertension Negative: Diabetes - Social History Occupation: Employed Full-time Lives: With Family Alcohol Use: None Substance Use Type: None Smoking Status (MU): Never Smoked Tobacco - Immunization History Most Recent Influenza Vaccination: Not the Season Most Recent Tetanus Shot: UNKNOWN Review of Systems All Other Systems Reviewed And Are Negative: Yes Constitutional: Positive: Fever, Chills, Fatigue Skin: Negative: Rash Eyes: Negative: Drainage, Eye Redness ENT: Negative: Sore Throat, Ear Ache, Nasal Discharge, Sinus Congestion, Sinus Pain/Tenderness Respiratory: Positive: Shortness Of Breath, Cough Cardiovascular: Negative: Chest Pain Gastrointestinal: Negative: Abdominal Pain, Vomiting, Diarrhea, Nausea Genitourinary: Positive: Negative Musculoskeletal: Positive: Myalgia Neurological/Mental Status: Positive: Negative Is Patient Immunocompromised?: No Physical Exam - Summary Physical Exam Summary: GENERAL APPEARANCE: Alert and cooperative obese adult female who appears to be in no acute distress. EYES: Conjunctiva clear. No drainage. EARS: External auditory canals and tympanic membranes clear, hearing grossly intact. NOSE: No nasal discharge. THROAT: Mild pharyngeal erythema. No tonsilar inflammation, swelling, exudate, or lesions. Uvula midline. NECK: Neck supple, non-tender without lymphadenopathy. CARDIAC: Normal S1 and S2. No S3, S4 or murmurs. Rhythm is regular. There is no peripheral edema, cyanosis or pallor. Extremities are warm and well perfused. Capillary refill is less than 2 seconds. Peripheral pulses intact. LUNGS: Clear to auscultation without rales, rhonchi, wheezing or diminished breath sounds. Non-productive cough. ABDOMEN: Positive bowel sounds. Soft, nondistended, nontender. No guarding or rebound. No masses or hepatosplenomegally. MUSKULOSKELETAL: ROM intact to all extremities. No joint erythema or tenderness. Normal muscular development. Normal gait. SKIN: Skin normal color, texture and turgor with no lesions or eruptions. Triage Information Reviewed: Yes Vital Signs: Initial Vital Signs Temp 99.6 F 08/17/19 12:39 Pulse 110 08/17/19 12:39 Resp 22 08/17/19 12:39 BP 136/73 08/17/19 12:39 Pulse Ox 96 08/17/19 12:39 Vital Signs Reviewed: Yes Flu Course/Dx - Course Course Of Treatment: 49-year-old female with history of asthma presents with sudden onset of general malaise, fatigue, body aches, fever, chills, mild shortness of breath, and a nonproductive cough yesterday. Patient reports diagnosed with pneumonia back in June and completed a course of doxycycline followed by azithromycin. States she has had a cough since that time and does not notice any change with the onset of her recent symptoms. States she is routinely using her rescue inhaler. No recent travel. She did not receive her flu shot this season. Denies nasal congestion, runny nose, ear pain, dysphagia, sore throat, chest pain, abdominal pain, nausea, vomiting, or diarrhea. Afebrile. Mildly tachycardic otherwise vital signs stable. Patient had no nasal congestion, normal TMs, mild pharyngeal erythema without tonsillar swelling or exudate, no cervical lymphadenopathy, clear bilateral breath sounds, nonproductive cough, and otherwise unremarkable exam. Rapid flu test was positive for influenza A. Reviewed results with the patient. With her history of asthma recommending that she start Tamiflu 75 mg twice a day 5 days as well as symptomatic treatment. With her history of asthma and reported frequent use of albuterol will also place her on a short course of prednisone 40 mg daily 5 days. She is to follow-up with her primary care provider in 5-7 days if symptoms are not improving. Anticipatory guidance and warning symptoms are reviewed with the patient. Verbalizes understanding and agrees with plan of care. - Differential Dx/Diagnosis Differential Diagnosis/HQI/PQRI: Bronchitis, Influenza, Pneumonia, Upper Respiratory Infection Provider Diagnosis: Influenza A Discharge ED - Sign-Out/Discharge Documenting (check all that apply): Patient Departure All imaging exams completed and their final reports reviewed: No Studies - Discharge Plan Condition: Stable Disposition: HOME Prescriptions: Benzonatate CAP* [Tessalon 100 MG CAP*] 100 mg PO TID PRN #21 cap PRN Reason: Cough Oseltamivir CAP* [Tamiflu CAP*] 75 mg PO BID #10 cap predniSONE [Prednisone 20 MG TAB] 40 mg PO DAILY 5 Days #10 tablet Patient Education Materials: Influenza (ED) Referrals: Juarez Israel MD [Primary Care Provider] - 5 Days Additional Instructions: Your flu test in the clinic today was positive for influenza A. Start Tamiflu 1 capsule twice a day for 5 days. Take prednisone 40 mg daily for 5 days. Continue to use your inhalers as directed. Get plenty of rest. Drink plenty of fluids to avoid dehydration especially if you are running any fever. Take over the counter acetaminophen (Tylenol) or ibuprofen (Advil, Motrin) according to directions as needed for pain or fever. Take Tessalon Perles 1 cap every 8 hours as needed for cough. Use salt water gargles several times a day if you have a sore throat. You may also use Chloraseptic spray or Cepacol lonzenges according to directions which contain a numbing medication and can provide some temporary relief from your sore throat. Follow up with your primary care provider in 5-7 days if symptoms persist. Seek immediate medical attention in the emergency room if you have fever greater than 100.5 F despite taking acetaminophen or ibuprofen, have chest pain , difficulty breathing, are unable to swallow, or have any worsening of symptoms. - Billing Disposition and Condition Condition: STABLE Disposition: Home
== END 2019-08-17 13:34 | disposition home or self-care (01) ==
LOC: UCCORT 11:26
DX: J10.1 Influenza due to other identified influenza virus with other respiratory manifestations (principal); I10 Essential (primary) hypertension; J45.909 Unspecified asthma, uncomplicated; K21.9 Gastro-esophageal reflux disease without esophagitis; Z88.8 Allergy status to other drugs, medicaments and biological substances; Z88.5 Allergy status to narcotic agent; Z88.2 Allergy status to sulfonamides; Z88.0 Allergy status to penicillin; Z88.1 Allergy status to other antibiotic agents; Z79.52 Long term (current) use of systemic steroids; Z79.899 Other long term (current) drug therapy
CPT/HCPCS: 99212; G0463

== ENCOUNTER 2019-08-19 14:13 | Emergency (ER) | payer BC ==
[2019-08-19 15:04] VITALS: BP 133/88
--- NOTE | 2019-08-19 15:26 | UC ---
Respiratory Complaint HPI - HPI Summary HPI Summary: cough x 5 days cough is dry , worse with deep breathing , better with rest, was diagnosed with the Flu 3 days ago , fever and body aches are gone, but cont. to have chest tightness, no fever, no chills, mild nasal congestion , no sore throat - History of Current Complaint Chief Complaint: UCGeneralIllness Stated Complaint: COUGH, WHEEZING Time Seen by Provider: 08/19/19 15:16 Hx Obtained From: Patient Hx Last Menstrual Period: 08/12/19 Onset/Duration: Gradual Onset, Lasting Days - 5, Still Present Timing: Constant Severity Initially: Moderate Severity Currently: Moderate Pain Intensity: 0 Character: Cough: Nonproductive Aggravating Factors: Exertion, Deep Breaths Alleviating Factors: Nothing Associated Signs And Symptoms: Positive: Dyspnea, Wheezing, URI, Nasal Congestion. Negative: Fever, Chills, Dizziness, Calf Pain, Calf Swelling, Hoarseness, Sinus Discomfort - Allergies/Home Medications Allergies/Adverse Reactions: Allergies Allergy/AdvReac Type Severity Reaction Status Date / Time captopril Allergy Severe Difficulty Verified 08/19/19 15:04 Breathing codeine Allergy Severe Swelling Verified 08/19/19 15:04 enalapril Allergy Severe Difficulty Verified 08/19/19 15:04 Breathing melatonin Allergy Severe Swelling Verified 08/19/19 15:04 Sulfa (Sulfonamide Allergy Severe Swelling Verified 08/19/19 15:04 Antibiotics) pantoprazole Allergy Intermediate Rash Verified 08/19/19 15:04 Penicillins Allergy Unknown both Verified 08/19/19 15:04 parents allergic MIGUEL Inhibitors Allergy Unknown Verified 08/19/19 15:04 Reaction Details amoxicillin [From Augmentin] Allergy Unknown Verified 08/19/19 15:04 Reaction Details clavulanic acid Allergy Unknown Verified 08/19/19 15:04 [From Augmentin] Reaction Details doxazosin Allergy Unknown Verified 08/19/19 15:04 Reaction Details levofloxacin Allergy Unknown Verified 08/19/19 15:04 Reaction Details Macrolide Antibiotics Allergy Difficulty Verified 08/19/19 15:04 Breathing erythromycin base AdvReac GI Upset Verified 08/19/19 15:04 macrolides and ketolides Allergy Severe Difficulty Uncoded 08/19/19 15:04 Breathing Home Medications: Home Medications Albuterol 2.5MG/3ML (0.083%)* [Ventolin 2.5 MG/3 ML NEB.SALLY*] 2.5 mg NEB Q6H PRN 07/04/14 [History Confirmed 08/19/19] Albuterol Sulfate [Ventolin Hfa] 1 - 2 puff INH Q4H PRN 07/04/14 [History Confirmed 08/19/19] Esomeprazole Magnesium [Nexium] 40 mg PO DAILY PRN 07/04/14 [History Confirmed 08/19/19] Benzonatate CAP* [Tessalon 100 MG CAP*] 100 mg PO TID PRN #21 cap 08/17/19 [Rx Confirmed 08/19/19] Famotidine 40 mg PO DAILY 08/17/19 [History Confirmed 08/19/19] Oseltamivir CAP* [Tamiflu CAP*] 75 mg PO BID #10 cap 08/17/19 [Rx Confirmed ] amLODIPine TAB* [Norvasc 5 mg TAB*] 10 mg PO DAILY 08/17/19 [History Confirmed 08/19/19] predniSONE [Prednisone 20 MG TAB] 40 mg PO DAILY 5 Days #10 tablet 08/17/19 [Rx Confirmed 08/19/19] PMH/Surg Hx/FS Hx/Imm Hx Cardiovascular History: Hypertension Respiratory History: Asthma Other History Of: Negative For: HIV, Hepatitis B, Hepatitis C, Anticoagulant Therapy - Surgical History Surgical History: Yes Surgery Procedure, Year, and Place: ORAL SURGERY - Family History Known Family History: Positive: None, Cardiac Disease, Hypertension, Non- Contributory Negative: Diabetes - Social History Alcohol Use: None Substance Use Type: None Smoking Status (MU): Never Smoked Tobacco - Immunization History Most Recent Influenza Vaccination: Not the Season Most Recent Tetanus Shot: UNKNOWN Review of Systems All Other Systems Reviewed And Are Negative: Yes Constitutional: Positive: Negative Skin: Positive: Negative Eyes: Positive: Negative ENT: Positive: Nasal Discharge Respiratory: Positive: Shortness Of Breath, Cough Cardiovascular: Positive: Negative Is Patient Immunocompromised?: No Physical Exam Triage Information Reviewed: Yes Appearance: Well-Appearing, No Pain Distress, Well-Nourished Vital Signs: Initial Vital Signs Temp 98.0 F 08/19/19 15:00 Pulse 82 08/19/19 15:00 Resp 16 08/19/19 15:00 BP 133/88 08/19/19 15:00 Pulse Ox 98 08/19/19 15:00 Vital Signs Reviewed: Yes Eye Exam: Normal Eyes: Positive: Conjunctiva Clear ENT: Positive: Normal ENT inspection, Hearing grossly normal, Pharynx normal Neck exam: Normal Neck: Positive: Supple, Nontender Respiratory: Positive: Chest non-tender, No respiratory distress, No accessory muscle use, Wheezing. Negative: Respiratory distress Cardiovascular: Positive: RRR, No Murmur, Pulses Normal Respiratory Course/Dx - Differential Dx/Diagnosis Provider Diagnosis: Bronchitis Discharge ED - Sign-Out/Discharge Documenting (check all that apply): Patient Departure All imaging exams completed and their final reports reviewed: No Studies - Discharge Plan Condition: Stable Disposition: HOME Patient Education Materials: Acute Bronchitis (ED) Referrals: Juarez Israel MD [Primary Care Provider] - 7 Days Additional Instructions: cont. with prednisone cont. with your albuterol inh 2 puffs every 4 to 6 hrs as needed for wheezing / sob - Billing Disposition and Condition Condition: STABLE Disposition: Home
== END 2019-08-19 15:25 | disposition home or self-care (01) ==
LOC: UCCORT 14:13
DX: J45.909 Unspecified asthma, uncomplicated (principal); I10 Essential (primary) hypertension; Z79.899 Other long term (current) drug therapy; Z79.52 Long term (current) use of systemic steroids; Z88.8 Allergy status to other drugs, medicaments and biological substances; Z88.5 Allergy status to narcotic agent; Z88.2 Allergy status to sulfonamides; Z88.0 Allergy status to penicillin; Z91.09 Other allergy status, other than to drugs and biological substances; Z88.1 Allergy status to other antibiotic agents
CPT/HCPCS: 99211; G0463